=== PATIENT | female | born 1975 | race Caucasian/White ===

== ENCOUNTER 2018-12-11 23:08 | Emergency (ER) | payer MEDICAID ==
[~2018-12-11] VITALS: Ht 162.6 cm; Wt 79.4 kg
[2018-12-11 23:25] VITALS: BP 132/84
[2018-12-11] MEDS ORDERED: TUMS500 MG ORAL (23:25)
[2018-12-11] MEDS ORDERED: LOSARTAN POTASS25 MG ORAL (23:25)
[2018-12-11] MEDS ORDERED: ROCATROL0.25 MCG GT (23:25)
--- NOTE | 2018-12-11 23:25 | NUR ---
ED Nurse Note: Pt arrived ambulatory, A/Ox4. Complaining of abdominal pain, constipation and bloating for approximately 1 week. Pt states she also is experiencing discomfort when urinating. Pain 8/10, states she feels burning during urination and pressure and dull pain around lower abdominal area. Urine collected and sent to lab.
[2018-12-12 00:24] LABS: APPEARANCE,URINE CLEAR; BILIRUBIN, URINE NEGATIVE (NEGATIVE); COLOR,URINE PALE YELLOW; GLUCOSE, URINE (UA) NEGATIVE (NEGATIVE); KETONES,URINE NEGATIVE (NEGATIVE); LEUKOCYTE ESTERASE ,URINE 2+ (NEGATIVE); NITRITE,URINE NEGATIVE (NEGATIVE); PH,URINE 6.5 (4.5-8.0); PROTEIN,URINE 2+ (NEGATIVE); UROBILINOGEN,URINE NORMAL MG/DL (0.0-1.0)
[2018-12-12] MEDS ORDERED: TYLENOL EXTRA500 MG ORAL (00:53)
[2018-12-12] MEDS ORDERED: CEPHALEXIN500 MG ORAL (00:53)
[2018-12-12 01:01] VITALS: BP 138/86
--- NOTE | 2018-12-12 01:03 | NUR ---
ED Nurse Note: pt discharge instruction provided w/ prescription, pt wristband removed, pt education done via handout and discussion, pt verbalized understanding and agrees with plan, pt advised to follow up with pcp or return to ED if s/s worsen or new s/s develop, pt vss, ambulatory w/ steady gait.
[2018-12-12] MEDS ORDERED: LOSARTAN POTASS25 M1 PO (01:07)
--- NOTE | 2018-12-12 02:46 | Emergency Room Report ---
History of Present Illness General Chief Complaint: Constipation Source: Patient Present Illness HPI 43-year-old female presents ED for evaluation. Complaining of suprapubic pain and dysuria 2 days. Pain is sharp, 9 out of 10, nonradiating. Denies fevers or chills. Denies flank pain. Denies nausea or vomiting. No other aggravating relieving factors. Denies any other associated symptoms Allergies: Coded Allergies: NO KNOWN ALLERGIES (Verified Allergy, Unknown, 12/11/18) Patient History Past Medical History: HTN Past Surgical History: none Pertinent Family History: none Social History: Denies: smoking, alcohol use, drug use Last Menstrual Period: 2 weeks ago Now: No Immunizations: UTD Reviewed Nursing Documentation: PMH: Agreed; PSxH: Agreed Nursing Documentation-PMH Hx Hypertension: Yes Hx Neurological Problems: Yes - hypoparathyroidism Review of Systems All Other Systems: negative except mentioned in HPI Physical Exam Vital Signs Date Time Temp Pulse Resp B/P (MAP) Pulse Ox O2 Delivery O2 Flow Rate FiO2 12/11/18 23:17 97.9 98 16 132/84 96 Room Air Sp02 EP Interpretation: reviewed, normal General Appearance: no apparent distress, alert, GCS 15, non-toxic Head: normocephalic Eyes: bilateral eye normal inspection, bilateral eye PERRL ENT: normal ENT inspection Neck: normal inspection Respiratory: normal inspection Cardiovascular #1: normal inspection Gastrointestinal: normal bowel sounds, soft, non-distended, no guarding, no rebound, tenderness - suprapubic Rectal: deferred Genitourinary: no CVA tenderness Musculoskeletal: normal inspection Neurologic: alert, oriented x3, responsive, motor strength/tone normal, sensory intact, speech normal Psychiatric: normal inspection Skin: normal inspection Lymphatic: normal inspection Medical Decision Making Diagnostic Impression: Primary Impression: UTI (urinary tract infection) Qualified Codes: N30.01 - Acute cystitis with hematuria ER Course Hospital Course 43-year-old female presents to ED complaining of dysuria with suprapubic pain. Differential diagnoses include: UTI, cystitis, pyelonephritis Clinical course Patient placed on stretcher. After initial history and physical I ordered UA, urine . UA + blood, + bacteria. No flank pain. Likely cystitis. Discussed findings with patient. We'll discharge with antibiotics. Provide her refill of her losartan. Safe for discharge close outpatient follow-up. states she has a PMD. Diagnosis - UTI Stable and discharged home with prescriptions for Rx keflex, tylenol, losartan. Instructed to followup with PMD. Return to ED if symptoms recur or worsen Labs Test 12/11/18 23:45 Urine Color Pale yellow Urine Appearance Clear Urine pH 6.5 (4.5-8.0) Urine Specific [place] 1.005 (1.005-1.035) Urine Protein 2+ (NEGATIVE) Urine Glucose (UA) Negative (NEGATIVE) Urine Ketones Negative (NEGATIVE) Urine Blood 5+ (NEGATIVE) Urine Nitrite Negative (NEGATIVE) Urine Bilirubin Negative (NEGATIVE) Urine Urobilinogen Normal MG/DL (0.0-1.0) Urine Leukocyte Esterase 2+ (NEGATIVE) Urine RBC 5-10 /HPF (0 - 2) Urine WBC 5-10 /HPF (0 - 2) Urine Squamous Epithelial Cells Few /LPF (NONE/OCC) Urine Bacteria Few /HPF (NONE) Urine HCG, Qualitative Negative (NEGATIVE) Last Vital Signs Date Time Temp Pulse Resp B/P (MAP) Pulse Ox O2 Delivery O2 Flow Rate FiO2 12/12/18 01:01 98.0 90 16 138/86 100 Room Air Status: improved Disposition: HOME, SELF-CARE Condition: Stable Scripts Losartan Potassium (Losartan Potassium) 25 Mg Tablet 25 MG PO DAILY, #30 TAB Prov: Nirav Richardson MD 12/12/18 Acetaminophen* (TYLENOL EXTRA STRENGTH*) 500 Mg Tablet 500 MG ORAL Q8H PRN for Prn Headache/Temp > 101, #30 TAB 0 Refills Prov: Nirav Richardson MD 12/12/18 Cephalexin* (KEFLEX*) 500 Mg Capsule 500 MG ORAL EVERY 6 HOURS for 7 Days, CAP Prov: Nirav Richardson MD 12/12/18 Patient Instructions: Dysuria Nirav Richardson MD Dec 12, 2018 02:46
== END 2018-12-12 01:00 | disposition home or self-care (01) ==
LOC: EMR 23:58
DX: N30.01 Acute cystitis with hematuria (principal); I10 Essential (primary) hypertension; E20.9 Hypoparathyroidism, unspecified
CPT/HCPCS: 81003; 81025; 99283

== ENCOUNTER 2019-02-24 08:28 | Emergency (ER) | payer MEDICAID ==
[~2019-02-24] VITALS: Ht 162.6 cm; Wt 81.6 kg
[~2019-02-24 08:28] MED LIST: CEPHALEXIN500 MG ORAL; LOSARTAN POTASS25 M1 PO; LOSARTAN POTASS25 MG ORAL; ROCATROL0.25 MCG GT; TUMS500 MG ORAL; TYLENOL EXTRA500 MG ORAL
--- NOTE | 2019-02-24 08:39 | NUR ---
ED Nurse Note: Patient walked into ED from home patient reports nausea, vomiting, diarrhea for the past 2 days. alert awake ambulatory, patient reports that she is unable to tolerate oral fluids, patient is having clear emesis patient denies abdominal pain.
[2019-02-24 08:47] VITALS: BP 123/97
[2019-02-24] MEDS ORDERED: Morphine Sulfate 2mg/ml Inj(IV/IM USE ONLY) IVP ONE (09:00)
[2019-02-24 09:32] LABS: ALANINE AMINOTRANSFERASE 71 U/L (12-78); ALBUMIN 4.1 G/DL (3.4-5.0); ALBUMIN/GLOBULIN RATIO 0.9 (1.0-2.7); ALKALINE PHOSPHATASE 75 U/L (46-116); ANION GAP 13 mmol/L (5-15); ASPARTATE AMINO TRANSFERASE 43 U/L (15-37); BILIRUBIN,TOTAL 0.9 MG/DL (0.2-1.0); BLOOD UREA NITROGEN 9 mg/dL (7-18); CALCIUM 7.8 MG/DL (8.5-10.1); CARBON DIOXIDE 32 MMOL/L (21-32); CHLORIDE 96 MMOL/L (98-107); CREATININE 1.1 MG/DL (0.55-1.30); SODIUM 141 MMOL/L (136-145)
[2019-02-24 09:33] LABS: BASOPHILS % (AUTO) 1.6 % (0.0-2.0); EOSINOPHILS % (AUTO) 0.5 % (0.0-3.0); HEMATOCRIT 48.1 % (37.0-47.0); HEMOGLOBIN 16.7 G/DL (12.0-16.0); LYMPHOCYTES % (AUTO) 36.7 % (20.0-45.0); MEAN CORPUSCULAR VOLUME 95 FL (80-99); MONOCYTES % (AUTO) 7.3 % (1.0-10.0); NEUTROPHILS % (AUTO) 53.9 % (45.0-75.0); PLATELET COUNT 236 K/UL (150-450); RED BLOOD COUNT 5.04 M/UL (4.20-5.40); RED CELL DISTRIBUTION WIDTH 11.1 % (11.6-14.8); WHITE BLOOD COUNT 6.6 K/UL (4.8-10.8)
[2019-02-24 09:37] LABS: POTASSIUM 2.7 MMOL/L (3.5-5.1)
--- NOTE | 2019-02-24 10:29 | NUR ---
ED Nurse Note: UA collected and sent down to lab
[2019-02-24 10:44] LABS: APPEARANCE,URINE CLEAR; BILIRUBIN, URINE NEGATIVE (NEGATIVE); COLOR,URINE PALE YELLOW; GLUCOSE, URINE (UA) NEGATIVE (NEGATIVE); KETONES,URINE NEGATIVE (NEGATIVE); LEUKOCYTE ESTERASE ,URINE 3+ (NEGATIVE); NITRITE,URINE NEGATIVE (NEGATIVE); PH,URINE 8 (4.5-8.0); PROTEIN,URINE 1+ (NEGATIVE); UROBILINOGEN,URINE NORMAL MG/DL (0.0-1.0)
[2019-02-24] MEDS ORDERED: ONDANSETRON ODT4 MG BC (12:00)
--- NOTE | 2019-02-24 12:09 | Emergency Room Report ---
History of Present Illness General Chief Complaint: Nausea, Vomiting, and Diarrhea Source: Patient Present Illness HPI Patient presents emergency department today complaint nausea vomiting diarrhea and abdominal pain. Patient states that she was recently treated for UTI. Review medical records so she was last treated back in November. Patient states that she denies any dysuria urinary frequency. She does not believe she has UTI. However she thinks that she might have gastroenteritis. She states her coworkers at work have also has similar symptoms. She's had symptoms for the last couple days. She denies any chest pain shortness of breath. Denies any dysuria urinary frequency. Symptoms noted to be moderate to severe. No other modifying factors. No other associated signs and symptoms. No other complaints were noted. Allergies: Coded Allergies: SULFA (SULFONAMIDE ANTIBIOTICS) (Verified Allergy, Unknown, 02/24/19) Patient History Past Medical History: HTN, other - hypo parathyroidism Past Surgical History: none Social History: Denies: smoking, alcohol use, drug use Reviewed Nursing Documentation: PMH: Agreed; PSxH: Agreed Nursing Documentation-PMH Hx Hypertension: Yes Hx Neurological Problems: Yes - hypoparathyroidism Review of Systems All Other Systems: negative except mentioned in HPI Physical Exam Vital Signs Date Time Temp Pulse Resp B/P (MAP) Pulse Ox O2 Delivery O2 Flow Rate FiO2 02/24/19 08:30 98.2 113 20 136/87 98 Room Air Sp02 EP Interpretation: reviewed, normal General Appearance: normal inspection, well appearing, no apparent distress, alert Head: atraumatic Eyes: bilateral eye normal inspection ENT: normal ENT inspection, hearing grossly normal, normal voice Neck: normal inspection, full range of motion, supple, no bony tend Respiratory: normal inspection, lungs clear, normal breath sounds, no respiratory distress, no retraction, no wheezing Cardiovascular #1: regular rate, rhythm, no edema Gastrointestinal: normal inspection, normal bowel sounds, soft, no guarding, no hernia, tenderness - Diffusely to deep palpation Genitourinary: no CVA tenderness Musculoskeletal: normal inspection, back normal, normal range of motion Neurologic: normal inspection, alert, responsive, speech normal Psychiatric: normal inspection, judgement/insight normal, mood/affect normal Skin: normal inspection, normal color, no rash Medical Decision Making Diagnostic Impression: Primary Impression: Hypokalemia Additional Impression: Acute gastroenteritis ER Course Patient presents emergency department today complaining of abdominal discomfort associate nausea vomiting diarrhea. Differential considerations include acute electrolyte abnormality, gastroenteritis, pancreatitis, hepatitis just to name a few. Patient's exam is fairly benign other than abdominal discomfort after vomiting. Patient had IV established was given 3 L normal saline fluid bolus. Patient feels better to receiving fluid bolus and was able to provide some urine. Urine showed negative . Urine also showed elevated white blood cell count in the urine. This is consistent with possible UTI versus contamination. I did have a long discussion with the patient. Patient has no symptoms of a UTI. Therefore I felt that this likely is contamination. However recommended to the patient that if she should express any UTI symptoms return to emergency department for further evaluation. Patient was also hesitant to take any antibiotics that she was recently treated for UTI. I recommend that she follow up with a primary care physician for recheck of her potassium as well as her urine in about one week. Patient does have hypokalemia likely secondary to vomiting and diarrhea. Patient however states that she does have a history of low potassium. Patient was given a prescription for K-Dur advised to follow up with primary care physician for recheck of potassium.Patient is advised to follow up with primary doctor in 2-3 days and return the emergency room for any worsening symptoms and as needed. Labs Test 02/24/19 08:55 02/24/19 10:27 White Blood Count 6.6 K/UL (4.8-10.8) Red Blood Count 5.04 M/UL (4.20-5.40) Hemoglobin 16.7 G/DL (12.0-16.0) Hematocrit 48.1 % (37.0-47.0) Mean Corpuscular Volume 95 FL (80-99) Mean Corpuscular Hemoglobin 33.1 PG (27.0-31.0) Mean Corpuscular Hemoglobin Concent 34.7 G/DL (32.0-36.0) Red Cell Distribution Width 11.1 % (11.6-14.8) Platelet Count 236 K/UL (150-450) Mean Platelet Volume 5.7 FL (6.5-10.1) Neutrophils (%) (Auto) 53.9 % (45.0-75.0) Lymphocytes (%) (Auto) 36.7 % (20.0-45.0) Monocytes (%) (Auto) 7.3 % (1.0-10.0) Eosinophils (%) (Auto) 0.5 % (0.0-3.0) Basophils (%) (Auto) 1.6 % (0.0-2.0) Sodium Level 141 MMOL/L (136-145) Potassium Level 2.7 MMOL/L (3.5-5.1) Chloride Level 96 MMOL/L (98-107) Carbon Dioxide Level 32 MMOL/L (21-32) Anion Gap 13 mmol/L (5-15) Blood Urea Nitrogen 9 mg/dL (7-18) Creatinine 1.1 MG/DL (0.55-1.30) Estimat Glomerular Filtration Rate 54.2 mL/min (>60) Glucose Level 115 MG/DL (74-106) Calcium Level 7.8 MG/DL (8.5-10.1) Total Bilirubin 0.9 MG/DL (0.2-1.0) Aspartate Amino Transf (AST/SGOT) 43 U/L (15-37) Alanine Aminotransferase (ALT/SGPT) 71 U/L (12-78) Alkaline Phosphatase 75 U/L (46-116) Total Protein 8.7 G/DL (6.4-8.2) Albumin 4.1 G/DL (3.4-5.0) Globulin 4.6 g/dL Albumin/Globulin Ratio 0.9 (1.0-2.7) Lipase 299 U/L (73-393) Urine Color Pale yellow Urine Appearance Clear Urine pH 8 (4.5-8.0) Urine Specific [place] 1.005 (1.005-1.035) Urine Protein 1+ (NEGATIVE) Urine Glucose (UA) Negative (NEGATIVE) Urine Ketones Negative (NEGATIVE) Urine Blood 3+ (NEGATIVE) Urine Nitrite Negative (NEGATIVE) Urine Bilirubin Negative (NEGATIVE) Urine Urobilinogen Normal MG/DL (0.0-1.0) Urine Leukocyte Esterase 3+ (NEGATIVE) Urine RBC 2-4 /HPF (0 - 2) Urine WBC 10-15 /HPF (0 - 2) Urine Squamous Epithelial Cells Few /LPF (NONE/OCC) Urine Bacteria Few /HPF (NONE) Urine HCG, Qualitative Negative (NEGATIVE) Last Vital Signs Date Time Temp Pulse Resp B/P (MAP) Pulse Ox O2 Delivery O2 Flow Rate FiO2 02/24/19 09:40 98.2 02/24/19 08:47 111 12 123/97 98 Room Air Disposition: HOME, SELF-CARE Condition: Stable Scripts Ondansetron Odt* (ZOFRAN ODT*) 4 Mg Tab.rapdis 4 MG BC EVERY 6 HOURS PRN for Nausea & Vomiting, #10 TAB 0 Refills Prov: Everardo Camacho MD 02/24/19 Patient Instructions: Hypokalemia, Dehydration, Adult, [id number] Everardo Camacho MD Feb 24, 2019 12:09
[2019-02-24] MEDS ORDERED: POTASSIUM CHLO20 ME1 ORAL (12:10)
[2019-02-24 12:19] VITALS: BP 121/89
--- NOTE | 2019-02-24 12:20 | NUR ---
ER DISCHARGE NOTE: Patient is cleared to be discharged per ERMD, pt is aox4, on room air, with stable vital signs. pt was given dc and prescription instructions, pt was able to verbalize understanding, pt id band and iv site removed without complications. pt is able to ambulate with steady gait. pt took all belongings.
== END 2019-02-24 12:50 | disposition home or self-care (01) ==
LOC: EMR 08:41
DX: K52.9 Noninfective gastroenteritis and colitis, unspecified (principal); E87.6 Hypokalemia; Z88.2 Allergy status to sulfonamides; I10 Essential (primary) hypertension
CPT/HCPCS: 36415; 80053; 81003; 81025; 83690; 85025; 87086; 96361; 96374; 96375; 96376; 99284; J2270; J2405; J8499

== ENCOUNTER 2019-04-29 08:44 | Inpatient (IN) | payer MEDICAID ==
[~2019-04-29] VITALS: Ht 160 cm; Wt 81.6 kg
[~2019-04-29 08:44] MED LIST changes: +ONDANSETRON ODT4 MG BC; +POTASSIUM CHLO20 ME1 ORAL
--- NOTE | 2019-04-29 09:10 | NUR ---
ED Nurse Note: Patient presents ER due to blood (bright red blood) in stool x 3 this morning and rectal pain. Reports no N/V or fever or chills. Patient states increased pain when she sits on the toilet for 'long time' and her stool gets harder since last week. Denies taking any stool softner. No facial grimacing or guarding noted.
--- NOTE | 2019-04-29 09:11 | Emergency Room Report ---
History of Present Illness General Chief Complaint: Gastrointestinal Bleed Source: Patient Present Illness HPI Patient present with rectal bleeding and crampy pain with rectal pain that began this morning. She moved her bowels attempting 3 times. There is blood the first time that was bright red and quite a bit. Second time there was stool with minimal amount of blood in the third time there was stool with blood around it. Blood is bright red. She denies passing any clots. She has some rectal pain. She not sure if the lower abdominal cramping is related to her menstruation or was a separate problem. She denies constipation per se but is been spending more time sitting on the toilet. She denies any fevers or chills. There's no nausea and vomiting. She's never had colonoscopy and denies any family history of cancer. She denies dysuria. Her menstruation is normal for her. She feels tired. She's not sure why that is. She denies any chest pain, dyspnea or sore throat. H/O hypoparathyroidism on calcium and Calcitrol.. Allergies: Coded Allergies: SULFA (SULFONAMIDE ANTIBIOTICS) (Verified Allergy, Unknown, 02/24/19) Patient History Past Medical History: see triage record Social History: Denies: smoking Social History Narrative has 8 year old daughter Reviewed Nursing Documentation: PMH: Agreed; PSxH: Agreed Nursing Documentation-PMH Hx Hypertension: Yes Hx Neurological Problems: Yes - hypoparathyroidism Review of Systems All Other Systems: negative except mentioned in HPI Physical Exam Vital Signs Date Time Temp Pulse Resp B/P (MAP) Pulse Ox O2 Delivery O2 Flow Rate FiO2 04/29/19 08:46 98.8 92 19 127/84 (98) 97 Room Air Sp02 EP Interpretation: reviewed, normal General Appearance: well appearing, no apparent distress, GCS 15 Head: normocephalic Eyes: bilateral eye normal inspection, bilateral eye PERRL, bilateral eye EOMI ENT: moist mucus membranes Neck: supple Respiratory: lungs clear, normal breath sounds Cardiovascular #1: regular rate, rhythm Cardiovascular #2: 2+ radial (R) Gastrointestinal: normal inspection, normal bowel sounds, non tender, no mass, non-distended Rectal: hemorrhoids, other - No fissure Genitourinary: no CVA tenderness Musculoskeletal: back normal, gait/station normal, normal range of motion Neurologic: alert, oriented x3, grossly normal Psychiatric: mood/affect normal Skin: normal inspection, warm/dry Medical Decision Making Diagnostic Impression: Primary Impression: Hypocalcemia Additional Impressions: Hypokalemia Rectal bleeding Hemorrhoid Qualified Codes: K64.9 - Unspecified hemorrhoids UTI (urinary tract infection) Qualified Codes: N30.00 - Acute cystitis without hematuria ER Course Patient presents with rectal bleeding. Differential includes hemorrhoid, rectal fissure, diverticulosis and mass. Evaluation with labs. Treatment with Tylenol. Abdomen is benign at this time. Risk of rectal cancer is extremely low based on his history. Labs significant for low potassium and calcium. Ionized calcium low. Potassium given orally. CBC normal. Magnesium low. Calcium ordered IV. Most likely these are contributing to her fatigue. Macrobid begun for UTI. . Patient admitted to medical floor. Last Vital Signs Date Time Temp Pulse Resp B/P (MAP) Pulse Ox O2 Delivery O2 Flow Rate FiO2 04/29/19 16:00 98.1 78 19 125/87 (100) 97 04/29/19 15:19 Room Air EKG Diagnostic Results Rate: normal Rhythm: NSR ST Segments: no acute changes Rhythm Strip Diag. Results EP Interpretation: yes Rhythm: NSR, no PVC's, no ectopy Last Vital Signs Date Time Temp Pulse Resp B/P (MAP) Pulse Ox O2 Delivery O2 Flow Rate FiO2 04/29/19 16:00 98.1 78 19 125/87 (100) 97 04/29/19 15:19 Room Air Status: improved Disposition: ADMITTED INPATIENT Condition: Serious Referrals: NON PHYSICIAN (PCP) Dino Blue MD Apr 29, 2019 09:11
--- NOTE | 2019-04-29 09:16 | NUR ---
ED Nurse Note: Venipuncture to right AC performed using 22g. Patient tolerated the procedure without difficulty. Applied clean, dry dressing.
--- NOTE | 2019-04-29 09:30 | NUR ---
ED Nurse Note: Patient attempted to void, but unsuccessful. Provided water.
[2019-04-29 09:35] LABS: EOSINOPHILS % (AUTO) 1.7 % (0.0-3.0); HEMATOCRIT 42.4 % (37.0-47.0); HEMOGLOBIN 14.4 G/DL (12.0-16.0); LYMPHOCYTES % (AUTO) 24.3 % (20.0-45.0); MEAN CORPUSCULAR VOLUME 99 FL (80-99); MONOCYTES % (AUTO) 10.3 % (1.0-10.0); NEUTROPHILS % (AUTO) 61.7 % (45.0-75.0); PLATELET COUNT 218 K/UL (150-450); RED BLOOD COUNT 4.29 M/UL (4.20-5.40); RED CELL DISTRIBUTION WIDTH 12.2 % (11.6-14.8); WHITE BLOOD COUNT 5.7 K/UL (4.8-10.8)
[2019-04-29 09:46] LABS: ALANINE AMINOTRANSFERASE 146 U/L (12-78); ALBUMIN 3.2 G/DL (3.4-5.0); ALBUMIN/GLOBULIN RATIO 0.8 (1.0-2.7); ALKALINE PHOSPHATASE 66 U/L (46-116); ANION GAP 11 mmol/L (5-15); ASPARTATE AMINO TRANSFERASE 96 U/L (15-37); BILIRUBIN,TOTAL 0.6 MG/DL (0.2-1.0); BLOOD UREA NITROGEN 8 mg/dL (7-18); CALCIUM 7.4 MG/DL (8.5-10.1); CARBON DIOXIDE 26 MMOL/L (21-32); CHLORIDE 100 MMOL/L (98-107); POTASSIUM 2.8 MMOL/L (3.5-5.1); SODIUM 138 MMOL/L (136-145)
--- NOTE | 2019-04-29 09:54 | NUR ---
ED Nurse Note: Family member at bedside.
[2019-04-29 09:59] LABS: APPEARANCE,URINE CLEAR; BILIRUBIN, URINE NEGATIVE (NEGATIVE); COLOR,URINE PALE YELLOW; GLUCOSE, URINE (UA) NEGATIVE (NEGATIVE); KETONES,URINE NEGATIVE (NEGATIVE); LEUKOCYTE ESTERASE ,URINE 3+ (NEGATIVE); NITRITE,URINE NEGATIVE (NEGATIVE); PH,URINE 7 (4.5-8.0); PROTEIN,URINE 1+ (NEGATIVE); UROBILINOGEN,URINE NORMAL MG/DL (0.0-1.0)
[2019-04-29 10:01] VITALS: BP 121/73
[2019-04-29 12:20] VITALS: BP 112/83
[2019-04-29] MEDS ORDERED: Calcium Gluconate 10% 1 GM in NS 110 ML IV ONE (12:30)
[2019-04-29 13:15] VITALS: BP 141/92
--- NOTE | 2019-04-29 13:15 | NUR ---
NURSE NOTES: Patient came to unit by wheelchair in stable condition. Alert and oriented x4. Complain of mild pain on abdominal area. Skin intact and dry. IV dressing intact and dry. Belonging checked. Bed lowest position. Call light within reach. Will continue to monitor.
[2019-04-29] MEDS ORDERED: Miralax 17gm pkt ORAL PRN (14:00)
[2019-04-29] MEDS ORDERED: Nitroglycerin Subl 0.4mg tab SL PRN (14:00)
[2019-04-29] MEDS ORDERED: D5NS 1,000 ML IV SCH (14:01)
--- NOTE | 2019-04-29 14:55 | NUR ---
NURSE NOTES: Spoke to [facility] [employer] regarding stomach cramping and new order received. Order read back and carried out.
[2019-04-29] MEDS ORDERED: Dicyclomine 10mg Cap ORAL PRN (15:00)
[2019-04-29 16:00] VITALS: BP 125/87
--- NOTE | 2019-04-29 16:07 | GI Progress Note ---
Objective Last 24 Hour Vital Signs Date Time Temp Pulse Resp B/P (MAP) Pulse Ox O2 Delivery O2 Flow Rate FiO2 04/29/19 15:19 Room Air 04/29/19 13:24 87 17 136/99 97 Room Air 04/29/19 12:20 87 15 112/83 99 Room Air 04/29/19 10:01 98.4 94 16 121/73 99 Room Air 04/29/19 09:55 98.4 04/29/19 09:20 86 18 Room Air 04/29/19 08:46 98.8 92 19 127/84 (98) 97 Room Air Laboratory Tests Test 04/29/19 09:16 04/29/19 09:42 04/29/19 10:11 White Blood Count 5.7 K/UL (4.8-10.8) Red Blood Count 4.29 M/UL (4.20-5.40) Hemoglobin 14.4 G/DL (12.0-16.0) Hematocrit 42.4 % (37.0-47.0) Mean Corpuscular Volume 99 FL (80-99) Mean Corpuscular Hemoglobin 33.6 PG (27.0-31.0) H Mean Corpuscular Hemoglobin Concent 34.0 G/DL (32.0-36.0) Red Cell Distribution Width 12.2 % (11.6-14.8) Platelet Count 218 K/UL (150-450) Mean Platelet Volume 6.1 FL (6.5-10.1) L Neutrophils (%) (Auto) 61.7 % (45.0-75.0) Lymphocytes (%) (Auto) 24.3 % (20.0-45.0) Monocytes (%) (Auto) 10.3 % (1.0-10.0) H Eosinophils (%) (Auto) 1.7 % (0.0-3.0) Basophils (%) (Auto) 2.0 % (0.0-2.0) Prothrombin Time 10.3 SEC (9.30-11.50) Prothromb Time International Ratio 1.0 (0.9-1.1) Activated Partial Thromboplast Time 27 SEC (23-33) Sodium Level 138 MMOL/L (136-145) Potassium Level 2.8 MMOL/L (3.5-5.1) L Chloride Level 100 MMOL/L (98-107) Carbon Dioxide Level 26 MMOL/L (21-32) Anion Gap 11 mmol/L (5-15) Blood Urea Nitrogen 8 mg/dL (7-18) Creatinine 1.0 MG/DL (0.55-1.30) Estimat Glomerular Filtration Rate > 60 mL/min (>60) Glucose Level 129 MG/DL (74-106) H Calcium Level 7.4 MG/DL (8.5-10.1) L Magnesium Level 1.2 MG/DL (1.8-2.4) L Total Bilirubin 0.6 MG/DL (0.2-1.0) Aspartate Amino Transf (AST/SGOT) 96 U/L (15-37) H Alanine Aminotransferase (ALT/SGPT) 146 U/L (12-78) H Alkaline Phosphatase 66 U/L (46-116) Total Protein 7.4 G/DL (6.4-8.2) Albumin 3.2 G/DL (3.4-5.0) L Globulin 4.2 g/dL Albumin/Globulin Ratio 0.8 (1.0-2.7) L Urine Color Pale yellow Urine Appearance Clear Urine pH 7 (4.5-8.0) Urine Specific [place] 1.005 (1.005-1.035) Urine Protein 1+ (NEGATIVE) H Urine Glucose (UA) Negative (NEGATIVE) Urine Ketones Negative (NEGATIVE) Urine Blood 2+ (NEGATIVE) H Urine Nitrite Negative (NEGATIVE) Urine Bilirubin Negative (NEGATIVE) Urine Urobilinogen Normal MG/DL (0.0-1.0) Urine Leukocyte Esterase 3+ (NEGATIVE) H Urine RBC 2-4 /HPF (0 - 2) H Urine WBC 15-20 /HPF (0 - 2) H Urine Squamous Epithelial Cells Few /LPF (NONE/OCC) Urine Bacteria Few /HPF (NONE) Urine HCG, Qualitative Negative (NEGATIVE) Ionized Calcium (Measured) 0.89 mmol/L (1.10-1.35) L Height (Feet): 5 Height (Inches): 4.00 Weight (Pounds): 180 Wai Loya MD Apr 29, 2019 16:07
--- NOTE | 2019-04-29 16:08 | General Progress Note ---
Assessment/Plan Problem List: (1) GIB (gastrointestinal bleeding) ICD Codes: K92.2 - Gastrointestinal hemorrhage, unspecified SNOMED: 46599909 (2) UTI (urinary tract infection) ICD Codes: N39.0 - Urinary tract infection, site not specified SNOMED: 81360673 (3) Hypokalemia ICD Codes: E87.6 - Hypokalemia SNOMED: 72263654 (4) Acute gastroenteritis ICD Codes: K52.9 - Noninfective gastroenteritis and colitis, unspecified SNOMED: 89441791 Assessment/Plan: plan colonoscopy tomorrow Subjective ROS Limited/Unobtainable: Yes Allergies: Coded Allergies: SULFA (SULFONAMIDE ANTIBIOTICS) (Verified Allergy, Unknown, 02/24/19) Objective Last 24 Hour Vital Signs Date Time Temp Pulse Resp B/P (MAP) Pulse Ox O2 Delivery O2 Flow Rate FiO2 04/29/19 15:19 Room Air 04/29/19 13:24 87 17 136/99 97 Room Air 04/29/19 12:20 87 15 112/83 99 Room Air 04/29/19 10:01 98.4 94 16 121/73 99 Room Air 04/29/19 09:55 98.4 04/29/19 09:20 86 18 Room Air 04/29/19 08:46 98.8 92 19 127/84 (98) 97 Room Air Laboratory Tests 04/29/19 09:16: White Blood Count 5.7, Red Blood Count 4.29, Hemoglobin 14.4, Hematocrit 42.4, Mean Corpuscular Volume 99, Mean Corpuscular Hemoglobin 33.6H, Mean Corpuscular Hemoglobin Concent 34.0, Red Cell Distribution Width 12.2, Platelet Count 218, Mean Platelet Volume 6.1L, Neutrophils (%) (Auto) 61.7, Lymphocytes (%) (Auto) 24.3, Monocytes (%) (Auto) 10.3H, Eosinophils (%) (Auto) 1.7, Basophils (%) ( Auto) 2.0, Prothrombin Time 10.3, Prothromb Time International Ratio 1.0, Activated Partial Thromboplast Time 27, Sodium Level 138, Potassium Level 2.8L, Chloride Level 100, Carbon Dioxide Level 26, Anion Gap 11, Blood Urea Nitrogen 8 , Creatinine 1.0, Estimat Glomerular Filtration Rate > 60, Glucose Level 129H, Calcium Level 7.4L, Magnesium Level 1.2L, Total Bilirubin 0.6, Aspartate Amino Transf (AST/SGOT) 96H, Alanine Aminotransferase (ALT/SGPT) 146H, Alkaline Phosphatase 66, Total Protein 7.4, Albumin 3.2L, Globulin 4.2, Albumin/Globulin Ratio 0.8L 04/29/19 09:42: Urine Color Pale yellow, Urine Appearance Clear, Urine pH 7, Urine Specific [place] 1.005, Urine Protein 1+H, Urine Glucose (UA) Negative, Urine Ketones Negative, Urine Blood 2+H, Urine Nitrite Negative, Urine Bilirubin Negative, Urine Urobilinogen Normal, Urine Leukocyte Esterase 3+H, Urine RBC 2-4H, Urine WBC 15-20H, Urine Squamous Epithelial Cells Few, Urine Bacteria Few, Urine HCG, Qualitative Negative 04/29/19 10:11: Ionized Calcium (Measured) 0.89L Height (Feet): 5 Height (Inches): 4.00 Weight (Pounds): 180 General Appearance: alert EENT: normal ENT inspection Neck: supple Cardiovascular: normal rate Respiratory/Chest: lungs clear Abdomen: normal bowel sounds, non tender, soft Extremities: non-tender Wai Loya MD Apr 29, 2019 16:08
[2019-04-29] MEDS ORDERED: Dicyclomine HCl 10mg/5ml oral soln ORAL PRN (16:15)
--- NOTE | 2019-04-29 16:50 | NUR ---
HAND-OFF: Report given to Iraida CHAVIS. Patient in stable condition..
--- NOTE | 2019-04-29 16:50 | NUR ---
NURSE NOTES: Report received from Alan CHAVIS, rounds made. Patient sitting upright in bed, alert, oriented x4, calm. Reviewed plan of care, verbalized understanding. IVF infusing to LAC at 75 ml/hr, site asymptomatic. Denies NV, pain or SOB on RA. Instructed acute care nurse practitioner light for safety. Side rails up x3, bed in lowest position, will continue to monitor.
[2019-04-29] MEDS ORDERED: Nulytely 4L ORAL SCH (17:00)
[2019-04-29] MEDS: D5 1/2NS w/KCl 20mEq 1,000 ML IV SCH (18:55)
--- NOTE | 2019-04-29 19:10 | NUR ---
NURSE NOTES: Consent for colonoscopy reviewed with patient, verbalized understanding, signed by patient. Reinforced NPO after midnight status and initiated Nulytely as ordered, Dr. Loya notified that it was being started at 1850 and patient will be taking second round at midnight, okay with Dr. Loya, see order. Bilateral SCDs applied, instructed patient on purpose, verbalized understanding. Medicated with Bentyl for patient experiencing abdominal cramps. Will endorse above to next shift nurse.
--- NOTE | 2019-04-29 19:30 | NUR ---
Nurses Notes Received report from Aniya CHAVIS Pt alert oriented x4. Pt NPO for procedure tomorrow. no acute respiratory distress, pt on room air. Pt denies pain at this time. IV intact. pt denies any bleeding in stool at this time. Golylte at beside. pt instructed by day nurse how and when to take Gol[place]. night nurse to enforce teaching. Pt able to ambulate with steady gait. bed in lowest position call light in reach. will continue to monitor patient
--- NOTE | 2019-04-29 19:35 | NUR ---
HAND-OFF: Report given to Juliana CHAVIS.
--- NOTE | 2019-04-29 19:44 | History & Physical ---
History and Physical History & Physicial Dictated for Int Med-Dr Houston no. [id number]. Fidel Olvera MD Apr 29, 2019 19:44
[2019-04-29 20:00] VITALS: BP 143/98
--- NOTE | 2019-04-29 21:20 | NUR ---
Nurse Notes VS taken patient b/p 143/98 asymptomatic pt states " I am feeling anxious" Dr. Loya notified with new orders of Ativan 1mg PO x 1. No b/p Meds ordered at this time will continue to monitor blood pressure
[2019-04-29] MEDS ORDERED: LORazepam 1mg tab ORAL SCH (21:45)
[2019-04-30] VITALS (11 sets, daily range): BP systolic 105–136; BP diastolic 68–99
--- NOTE | 2019-04-30 | NUR ---
Nurse notes Pt b/p 136/99 Pt states " I feel okay. Pt is asymptomatic. . notified Dr Loya earlier no b/p meds ordered. pt in bed comfortable. will continue to monitor b/p
--- NOTE | 2019-04-30 01:00 | History and Physical Report ---
DATE OF ADMISSION: 04/29/2019 CHIEF COMPLAINT: The patient is a 43-year-old white female, who presents with a chief complaint of rectal bleeding and abdominal pain. HISTORY OF PRESENT ILLNESS: Began this morning. The patient began to experience rectal pain. The patient had abdominal pain that was cramping in nature. The patient then had a bowel movement, which had bright red blood. The patient states the toilet bowl was red in color. The patient presented to [facility] emergency room. The patient was admitted for rectal bleed. REVIEW OF SYSTEMS: CONSTITUTIONAL: The patient denies weight loss or weight gain. The patient denies fevers or chills. HEENT: The patient denies ear or throat pain. The patient denies headache. CARDIOVASCULAR: The patient denies palpitations or chest pain. CHEST: The patient denies wheeze or shortness of breath. ABDOMINAL: The patient denies nausea, vomiting, diarrhea, or constipation. GENITOURINARY: The patient denies dysuria or increased frequency of urination. NEUROMUSCULAR: The patient denies seizures or generalized weakness. PAST MEDICAL HISTORY: Significant for hypothyroidism. PAST SURGICAL HISTORY: The patient denies. CURRENT MEDICATIONS: 1. Calcitriol 0.5 mcg daily. 2. Calcium carbonate 600 mg one tab p.o. 3 times a day. 3. Losartan 25 mg p.o. daily. 4. Potassium chloride 20 mEq p.o. twice daily. ALLERGIES: Sulfa. SOCIAL HISTORY: The patient is single. 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 The patient denies tobacco or alcohol use. PHYSICAL EXAMINATION: VITAL SIGNS: Temperature 98.4, respirations 16, pulse 94, and blood pressure /73. GENERAL: The patient is a well-developed and well-nourished female, in no apparent distress. HEENT: Eyes, pupils are equal and responsive to light and accommodation. Extraocular movements are intact. NECK: Supple without lymphadenopathy. CHEST: Lungs are clear to auscultation bilaterally without wheezes or rales. CARDIOVASCULAR: Regular rhythm and rate. S1 and S2 are normal without murmurs, rubs, or gallops. ABDOMEN: Soft, nontender, and nondistended. Positive bowel sounds. No evidence of hepatosplenomegaly. Currently, no rebound or guarding noted. EXTREMITIES: Negative for clubbing, cyanosis, or edema. RECTAL/GENITAL: Refused. NEUROLOGICAL: Cranial nerves II through XII are grossly intact without focal deficits. Motor strength is 5/5 bilaterally. Deep tendon reflexes are 2+ plantar. LABORATORY STUDIES: WBC 5.7, hemoglobin 14.4, hematocrit 42.4, and platelets 280,000. Sodium 138, potassium 2.8, chloride 100, CO2 26, BUN 8, creatinine 1.0, and glucose 129. Urinalysis showed 2+ blood and 3+ leukocyte esterase with 15 to 20 wbc's. ASSESSMENT: This is a 43-year-old white female. 1. Rectal bleeding. 2. Abdominal pain. 3. Urinary tract infection. 4. Hypokalemia. 5. Gastroenteritis. 6. Hypoparathyroidism. TREATMENT: 1. Rectal bleeding/abdominal pain. A Gastroenterology consultation has been obtained with Dr. Wai Loya. The patient may require colonoscopy and endoscopy. We will follow recommendations of Gastroenterology. The patient has been started on Protonix. 2. Urinary tract infection. A urine culture is pending. The patient has been started on Macrobid. 3. Hypokalemia. The patient has received potassium. 4. Gastroenteritis. 5. Hypoparathyroidism. Fidel Olvera M.D. DR: NAHED JOB#: [id number] CC:
[2019-04-30] MEDS: D5 1/2NS w/KCl 20mEq 1,000 ML IV SCH (05:37)
[2019-04-30 06:29] LABS: BASOPHILS % (AUTO) 1.2 % (0.0-2.0); EOSINOPHILS % (AUTO) 1.6 % (0.0-3.0); HEMATOCRIT 44.3 % (37.0-47.0); HEMOGLOBIN 15.2 G/DL (12.0-16.0); LYMPHOCYTES % (AUTO) 32.9 % (20.0-45.0); MEAN CORPUSCULAR VOLUME 100 FL (80-99); NEUTROPHILS % (AUTO) 54.3 % (45.0-75.0); PLATELET COUNT 224 K/UL (150-450); RED BLOOD COUNT 4.44 M/UL (4.20-5.40); WHITE BLOOD COUNT 6.2 K/UL (4.8-10.8)
--- NOTE | 2019-04-30 06:40 | Anethesia Preoperative Eval ---
Anesthesia Pre-op PMH/ROS General Date of Evaluation: Apr 30, 2019 Time of Evaluation: 06:37 Anesthesiologist: dede ASA Score: ASA 3 Mallampati Score Class I : Soft palate, uvula, fauces, pillars visible Class II: Soft palate, uvula, fauces visible Class III: Soft palate, base of uvula visible Class IV: Only hard plate visible Mallampati Classification: Class II Surgeon: tara Diagnosis: gi bleed Surgical Procedure: colonoscopy Anesthesia History: none Social History: smoking - nonsmoker Family History: no anesthesia problems Allergies: Coded Allergies: SULFA (SULFONAMIDE ANTIBIOTICS) (Verified Allergy, Unknown, 02/24/19) Medications: see eMAR Patient NPO?: Yes Past Medical History Cardiovascular: Reports: HTN Gastrointestinal/Genitourinary: Reports: other - acute gastroenteritis, gi bleed, hemorrhoids, rectal bleeding, uti Endocrine: Reports: other - hypoparathyroidism, Anesthesia Pre-op Phys. Exam Physician Exam Last Vital Signs Date Time Temp Pulse Resp B/P (MAP) Pulse Ox O2 Delivery O2 Flow Rate FiO2 04/30/19 04:00 98.6 82 20 119/86 (97) 98 04/29/19 21:00 Room Air Constitutional: NAD Neurologic: CN 2-12 intact Cardiovascular: RRR Respiratory: CTA Gastrointestinal: S/NT/ND Airway Exam Mallampati Score: Class II MO: full Neck: flexible TMD: 2fb ROM: full Anesthesia Pre-op A/P Labs Labs Test 04/29/19 09:16 04/29/19 09:42 04/29/19 10:11 04/30/19 05:35 White Blood Count 5.7 K/UL (4.8-10.8) 6.2 K/UL (4.8-10.8) Red Blood Count 4.29 M/UL (4.20-5.40) 4.44 M/UL (4.20-5.40) Hemoglobin 14.4 G/DL (12.0-16.0) 15.2 G/DL (12.0-16.0) Hematocrit 42.4 % (37.0-47.0) 44.3 % (37.0-47.0) Mean Corpuscular Volume 99 FL (80-99) 100 FL (80-99) Mean Corpuscular Hemoglobin 33.6 PG (27.0-31.0) 34.2 PG (27.0-31.0) Mean Corpuscular Hemoglobin Concent 34.0 G/DL (32.0-36.0) 34.3 G/DL (32.0-36.0) Red Cell Distribution Width 12.2 % (11.6-14.8) 12.0 % (11.6-14.8) Platelet Count 218 K/UL (150-450) 224 K/UL (150-450) Mean Platelet Volume 6.1 FL (6.5-10.1) 6.1 FL (6.5-10.1) Neutrophils (%) (Auto) 61.7 % (45.0-75.0) 54.3 % (45.0-75.0) Lymphocytes (%) (Auto) 24.3 % (20.0-45.0) 32.9 % (20.0-45.0) Monocytes (%) (Auto) 10.3 % (1.0-10.0) 10.0 % (1.0-10.0) Eosinophils (%) (Auto) 1.7 % (0.0-3.0) 1.6 % (0.0-3.0) Basophils (%) (Auto) 2.0 % (0.0-2.0) 1.2 % (0.0-2.0) Prothrombin Time 10.3 SEC (9.30-11.50) 10.2 SEC (9.30-11.50) Prothromb Time International Ratio 1.0 (0.9-1.1) 1.0 (0.9-1.1) Activated Partial Thromboplast Time 27 SEC (23-33) 27 SEC (23-33) Sodium Level 138 MMOL/L (136-145) 141 MMOL/L (136-145) Potassium Level 2.8 MMOL/L (3.5-5.1) 3.2 MMOL/L (3.5-5.1) Chloride Level 100 MMOL/L (98-107) 105 MMOL/L (98-107) Carbon Dioxide Level 26 MMOL/L (21-32) 24 MMOL/L (21-32) Anion Gap 11 mmol/L (5-15) 12 mmol/L (5-15) Blood Urea Nitrogen 8 mg/dL (7-18) 9 mg/dL (7-18) Creatinine 1.0 MG/DL (0.55-1.30) 1.0 MG/DL (0.55-1.30) Estimat Glomerular Filtration Rate > 60 mL/min (>60) > 60 mL/min (>60) Glucose Level 129 MG/DL (74-106) 120 MG/DL (74-106) Calcium Level 7.4 MG/DL (8.5-10.1) 7.7 MG/DL (8.5-10.1) Magnesium Level 1.2 MG/DL (1.8-2.4) Total Bilirubin 0.6 MG/DL (0.2-1.0) 0.7 MG/DL (0.2-1.0) Aspartate Amino Transf (AST/SGOT) 96 U/L (15-37) 58 U/L (15-37) Alanine Aminotransferase (ALT/SGPT) 146 U/L (12-78) 123 U/L (12-78) Alkaline Phosphatase 66 U/L (46-116) 52 U/L (46-116) Total Protein 7.4 G/DL (6.4-8.2) 7.8 G/DL (6.4-8.2) Albumin 3.2 G/DL (3.4-5.0) 3.4 G/DL (3.4-5.0) Globulin 4.2 g/dL 4.4 g/dL Albumin/Globulin Ratio 0.8 (1.0-2.7) 0.8 (1.0-2.7) Urine Color Pale yellow Urine Appearance Clear Urine pH 7 (4.5-8.0) Urine Specific [place] 1.005 (1.005-1.035) Urine Protein 1+ (NEGATIVE) Urine Glucose (UA) Negative (NEGATIVE) Urine Ketones Negative (NEGATIVE) Urine Blood 2+ (NEGATIVE) Urine Nitrite Negative (NEGATIVE) Urine Bilirubin Negative (NEGATIVE) Urine Urobilinogen Normal MG/DL (0.0-1.0) Urine Leukocyte Esterase 3+ (NEGATIVE) Urine RBC 2-4 /HPF (0 - 2) Urine WBC 15-20 /HPF (0 - 2) Urine Squamous Epithelial Cells Few /LPF (NONE/OCC) Urine Bacteria Few /HPF (NONE) Urine HCG, Qualitative Negative (NEGATIVE) Ionized Calcium (Measured) 0.89 mmol/L (1.10-1.35) Amylase Level 40 U/L (25-115) Lipase 244 U/L (73-393) Urine Test Test 04/29/19 09:42 Urine HCG, Qualitative Negative (NEGATIVE) Risk Assessment & Plan Assessment: asa3 Plan: mac Status Change Before Surgery: No Pre-Antibiotics Drug: Milady Viera MD Apr 30, 2019 06:40
[2019-04-30] MEDS ORDERED: fentaNYL 100 mcg/2 mL IV PRN (06:45)
[2019-04-30] MEDS ORDERED: DiphenhydrAMINE 50mg/ml Inj IVP PRN (06:45)
[2019-04-30] MEDS ORDERED: Midazolam 2mg/2ml Inj IVP PRN (06:45)
[2019-04-30] MEDS ORDERED: Atropine Inj 1mg/10ml Syr IV PRN (06:45)
[2019-04-30 07:08] LABS: ALANINE AMINOTRANSFERASE 123 U/L (12-78); ALBUMIN 3.4 G/DL (3.4-5.0); ALBUMIN/GLOBULIN RATIO 0.8 (1.0-2.7); ALKALINE PHOSPHATASE 52 U/L (46-116); AMYLASE 40 U/L (25-115); ANION GAP 12 mmol/L (5-15); ASPARTATE AMINO TRANSFERASE 58 U/L (15-37); BILIRUBIN,TOTAL 0.7 MG/DL (0.2-1.0); BLOOD UREA NITROGEN 9 mg/dL (7-18); CALCIUM 7.7 MG/DL (8.5-10.1); CARBON DIOXIDE 24 MMOL/L (21-32); CHLORIDE 105 MMOL/L (98-107); POTASSIUM 3.2 MMOL/L (3.5-5.1); SODIUM 141 MMOL/L (136-145)
--- NOTE | 2019-04-30 08:03 | NUR ---
NURSE NOTES: Report received from Juliana CHAVIS, rounds made. Patient alert, oriented x4, calm. VSS. Provided oral swabs, reinforced NPO status. Plans for colonoscopy at 0830 this AM, consent signed, bowel prep complete, clear output, no NV, no pain, no SOB on RA. Bilateral SCDs applied. IVF D5 1/2 +20KCL at 75 ml infusing without difficulty to LAC, site asymptomatic, dressing CDI. GI lab pre-op check list completed. Call light in reach, bed in lowest position, will continue to monitor.
--- NOTE | 2019-04-30 08:16 | NUR ---
NURSE NOTES: Dr. Loya notified of K level 3.2 this AM, reviewed current IVF. No further order received.
[2019-04-30] MEDS ORDERED: Lidocaine 1% MPF 10mg/ml 5ml ONE (09:00)
[2019-04-30] MEDS ORDERED: Losartan 25mg tab ORAL SCH (09:00)
[2019-04-30] MEDS ORDERED: Propofol 200mg/20ml IV ONE (09:00)
--- NOTE | 2019-04-30 09:08 | Pre-Procedure Note/Attestation ---
Pre-Procedure Note/Attestation Complete Prior to Procedure Planned Procedure: not applicable Procedure Narrative: colonoscopy Indications for Procedure Pre-Operative Diagnosis: rectal bleed Attestation I attest that I discussed the nature of the procedure; its benefits; risks and complications; and alternatives (and the risks and benefits of such alternatives ), prior to the procedure, with the patient (or the patient's legal customer relations representative). I attest that, if there was a reasonable possibility of needing a blood transfusion, the patient (or the patient's legal customer relations representative) was given the [facility] standardized written summary, pursuant to the Thom Barbie Blood Safety Act ([place] Health and Safety Code # 1645, as amended). I attest that I re-evaluated the patient just prior to the surgery and that there has been no change in the patient's H&P, except as documented below: Wai Loya MD Apr 30, 2019 09:08
--- NOTE | 2019-04-30 09:27 | Endoscopy Procedure Note ---
Endoscopy Procedure Note General Procedures Performed: colonoscopy Operative Findings/Diagnosis: colon polyps Specimen: yes Pt Tolerated Procedure Well: Yes Estimated Blood Loss: none Anesthesia Anesthesiologist: chemo Anesthesia: MAC Inserted Devices Implant(s) used?: No Quality Quality of Bowel Preparation: Good Did scope reach the cecum?: Yes GI Core Measures 50 yrs or older w/o bx or poly: Not Applicable 10yrs. F/U recommended: Not Applicable Wai Loya MD Apr 30, 2019 09:27
--- NOTE | 2019-04-30 11:15 | NUR ---
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 BLOODY STOOLS SI:GI BLEED . HYPOCALCEMIA VS: BP 127/84, P 92, T 98.7, RR 19, SpO2 97 K 2.8, CA 7.4, AST 96, ALT 146 IS:CALCIUM GLUCONATE 120ml IV MACROBID 100mg D5/NS x1L IV ADMITTED TO MED/SURG DCP: RETURN HOME COLONOSCOPY W/ SNARE POLYPECTOMY 04/30
--- NOTE | 2019-04-30 11:30 | NUR ---
NURSE NOTES: Patient returned from recovery at 1000 via [facility] s/p Colonoscopy. VSS. Regular diet and PO fluids provided as ordered. Patient tolerated 25% of meal, experiencing nausea, no emesis or dry heaves. Bowel sounds hypoactive. IVF resumed as ordered. Bilateral SCDs applied. Administered Zofran, will continue to monitor.
--- NOTE | 2019-04-30 15:22 | Consultation ---
History of Present Illness General Date patient seen: Apr 30, 2019 Chief Complaint: Gastrointestinal Bleed Present Illness HPI 43 year old female presented to ER with rectal bleeding and crampy pain with rectal pain that began this morning. She denies passing any clots. She has some rectal pain. She not sure if the lower abdominal cramping is related to her menstruation or was a separate problem. She is admitted for further work up. Allergies: Coded Allergies: SULFA (SULFONAMIDE ANTIBIOTICS) (Verified Allergy, Unknown, 02/24/19) Medication History Scheduled Cephalexin* (Keflex*), 500 MG ORAL EVERY 6 HOURS Losartan Potassium (Losartan Potassium), 25 MG PO DAILY Losartan Potassium* (Losartan Potassium*), 25 MG ORAL DAILY, (Reported) Potassium Chloride* (K-Dur*), 20 MEQ ORAL TWICE A DAY Scheduled PRN Acetaminophen* (Tylenol Extra Strength*), 500 MG ORAL Q8H PRN for Prn Headache/ Temp > 101 Calcium Carbonate (Calcium), 500 MG ORAL THREE TIMES A DAY PRN for HEARTBURN, ( Reported) Ondansetron Odt* (Zofran Odt*), 4 MG BC EVERY 6 HOURS PRN for Nausea & Vomiting Miscellaneous Medications Calcitriol (Calcitriol), 0.5 MCG GT, (Reported) Patient History Healthcare decision maker Resuscitation status Full Code Advanced Directive on File Past Medical/Surgical History Past Medical/Surgical History: (1) HTN (hypertension) Review of Systems All Other Systems: negative except mentioned in HPI Physical Exam General Appearance: WD/WN, no apparent distress Lines, tubes and drains: peripheral HEENT: normocephalic, anicteric Neck: non-tender, normal alignment Respiratory/Chest: chest wall non-tender, normal breath sounds Breasts: no masses Cardiovascular/Chest: normal rate, no JVD Genitourinary/Rectal: normal genital exam Extremities: normal range of motion Last 24 Hour Vital Signs Date Time Temp Pulse Resp B/P (MAP) Pulse Ox O2 Delivery O2 Flow Rate FiO2 04/30/19 12:00 98.1 83 17 121/82 (95) 97 04/30/19 10:45 98.4 89 18 135/82 (99) 97 04/30/19 09:55 97.8 77 13 115/74 100 Room Air 04/30/19 09:45 79 14 109/68 100 Room Air 04/30/19 09:40 74 15 105/72 100 Room Air 04/30/19 09:35 97.6 81 18 105/74 100 Simple Mask 6 04/30/19 09:00 Room Air 04/30/19 08:16 119/84 04/30/19 08:00 98.0 85 18 119/84 (96) 98 04/30/19 04:00 98.6 82 20 119/86 (97) 98 04/30/19 00:00 98.2 89 20 136/99 (111) 99 04/29/19 21:00 Room Air 04/29/19 20:00 98.8 87 20 143/98 (113) 96 04/29/19 16:00 98.1 78 19 125/87 (100) 97 Intake and Output 04/29/19 04/30/19 19:00 07:00 Intake Total 741 ml Output Total 1000 ml Balance 741 ml -1000 ml Intake Oral 591 ml IV Total 150 ml Output Urine Total 1000 ml # Voids 2 3 Laboratory Tests Test 04/30/19 05:35 White Blood Count 6.2 K/UL (4.8-10.8) Red Blood Count 4.44 M/UL (4.20-5.40) Hemoglobin 15.2 G/DL (12.0-16.0) Hematocrit 44.3 % (37.0-47.0) Mean Corpuscular Volume 100 FL (80-99) H Mean Corpuscular Hemoglobin 34.2 PG (27.0-31.0) H Mean Corpuscular Hemoglobin Concent 34.3 G/DL (32.0-36.0) Red Cell Distribution Width 12.0 % (11.6-14.8) Platelet Count 224 K/UL (150-450) Mean Platelet Volume 6.1 FL (6.5-10.1) L Neutrophils (%) (Auto) 54.3 % (45.0-75.0) Lymphocytes (%) (Auto) 32.9 % (20.0-45.0) Monocytes (%) (Auto) 10.0 % (1.0-10.0) Eosinophils (%) (Auto) 1.6 % (0.0-3.0) Basophils (%) (Auto) 1.2 % (0.0-2.0) Prothrombin Time 10.2 SEC (9.30-11.50) Prothromb Time International Ratio 1.0 (0.9-1.1) Activated Partial Thromboplast Time 27 SEC (23-33) Sodium Level 141 MMOL/L (136-145) Potassium Level 3.2 MMOL/L (3.5-5.1) L Chloride Level 105 MMOL/L (98-107) Carbon Dioxide Level 24 MMOL/L (21-32) Anion Gap 12 mmol/L (5-15) Blood Urea Nitrogen 9 mg/dL (7-18) Creatinine 1.0 MG/DL (0.55-1.30) Estimat Glomerular Filtration Rate > 60 mL/min (>60) Glucose Level 120 MG/DL (74-106) H Calcium Level 7.7 MG/DL (8.5-10.1) L Total Bilirubin 0.7 MG/DL (0.2-1.0) Aspartate Amino Transf (AST/SGOT) 58 U/L (15-37) H Alanine Aminotransferase (ALT/SGPT) 123 U/L (12-78) H Alkaline Phosphatase 52 U/L (46-116) Total Protein 7.8 G/DL (6.4-8.2) Albumin 3.4 G/DL (3.4-5.0) Globulin 4.4 g/dL Albumin/Globulin Ratio 0.8 (1.0-2.7) L Amylase Level 40 U/L (25-115) Lipase 244 U/L (73-393) Height (Feet): 5 Height (Inches): 3.00 Weight (Pounds): 180 Medications Current Medications Medications (Trade) Dose Ordered Sig/Sung Route PRN Reason Start Time Stop Time Status Last Admin Dose Admin Acetaminophen (Tylenol) 650 mg Q4H PRN ORAL fever 04/29/19 14:00 05/29/19 13:59 Al Hydroxide/Mg Hydroxide (Mylanta) 15 ml Q1H PRN ORAL gi upset 04/30/19 06:45 04/30/19 18:00 Atropine Sulfate (Atropine) 0.5 mg Q5M PRN IV bpm less than 45 04/30/19 06:45 04/30/19 18:00 Dextrose (Dextrose 50%) 25 ml Q30M PRN IV Hypoglycemia 04/29/19 14:00 05/29/19 13:59 Dextrose (Dextrose 50%) 50 ml Q30M PRN IV Hypoglycemia 04/29/19 14:00 05/29/19 13:59 Dextrose/ Electrolytes 1,000 ml @ 75 mls/hr [id number] IV 04/29/19 16:00 05/29/19 15:59 04/30/19 05:37 Dicyclomine HCl (Bentyl) 10 mg QIDPRN PRN ORAL Abdominal cramps 04/29/19 16:15 05/29/19 16:14 04/29/19 19:07 Diphenhydramine HCl (Benadryl) 25 mg Q15M PRN IVP Itching 04/30/19 06:45 04/30/19 18:00 Diphenhydramine HCl (Benadryl) 25 mg Q6H PRN ORAL Itching/Pruritis 04/29/19 14:00 05/29/19 13:59 Fentanyl Citrate (Sublimaze 100 mcg/2 mL) 25 mcg Q10M PRN IV Moderate Pain (Pain Scale 4-6) 04/30/19 06:45 04/30/19 18:00 Hydralazine HCl (Apresoline) 5 mg Q30M PRN IV SBP>160 OR___/DBP>90 OR___ 04/30/19 06:45 04/30/19 18:00 Losartan Potassium (Cozaar) 25 mg DAILY ORAL 04/30/19 09:00 05/30/19 08:59 04/30/19 08:16 Midazolam HCl (Versed 2mg/2ml vial) 1 mg Q15M PRN IVP For Anxiety 04/30/19 06:45 04/30/19 18:00 Nitroglycerin (Ntg) 0.4 mg Q5M X 3 DOSES PRN SL Prn Chest Pain 04/29/19 14:00 05/29/19 13:59 Ondansetron HCl (Zofran) 4 mg Q1H PRN IVP Nausea & Vomiting 04/30/19 06:45 04/30/19 18:00 Ondansetron HCl (Zofran) 4 mg Q6H PRN IVP Nausea & Vomiting 04/29/19 14:00 05/29/19 13:59 04/30/19 11:14 Polyethylene Glycol (Miralax) 17 gm HSPRN PRN ORAL Constipation 04/29/19 14:00 05/29/19 13:59 Temazepam (Restoril) 15 mg HSPRN PRN ORAL Insomnia 04/29/19 14:00 05/06/19 13:59 Assessment/Plan Problem List: (1) GIB (gastrointestinal bleeding) ICD Codes: K92.2 - Gastrointestinal hemorrhage, unspecified SNOMED: 10150817 (2) Rectal bleeding ICD Codes: K62.5 - Hemorrhage of anus and rectum SNOMED: 73876435 (3) HTN (hypertension) ICD Codes: I10 - Essential (primary) hypertension SNOMED: 60080793 (4) Hypokalemia ICD Codes: E87.6 - Hypokalemia SNOMED: 75624545 (5) Hemorrhoid ICD Codes: K64.9 - Unspecified hemorrhoids SNOMED: 56782451 Qualifiers: Qualified Codes: K64.9 - Unspecified hemorrhoids Assessment/Plan: NPO iv fluids gi evaluation prbc prn symptomatic treatment. Quinn Oleary MD Apr 30, 2019 15:22
--- NOTE | 2019-04-30 16:12 | NUR ---
*-* INSURANCE *-* ALL CLINICALS AND REVIEW HAVE BEEN FAXED TO: [employer]IC[employer] AT THIS TIME PLEASE FAX THE REVIEW/CLINICAL.. FX: [phone] & BS/PHIL-UR NCM: PILO Sousa P- [phone] F- [phone]....REVIEW/CLINICAL
--- NOTE | 2019-04-30 16:30 | Procedure Note ---
DATE OF PROCEDURE: 04/30/2019 SURGEON: Wai Loya M.D. PROCEDURE: Colonoscopy with snare polypectomy. ANESTHESIA: Per Dr. Wiggins. INSTRUMENT: Olympus adult flexible colonoscope. INDICATION: GI bleeding. REASON FOR PROCEDURE: The procedure, risks, benefits, and possible consequences, including hemorrhage, aspiration, perforation and infection, and alternative treatments, were explained to the patient/legal guardian by Dr. Wai Loya and the patient/legal guardian understood and accepted these risks. DESCRIPTION OF PROCEDURE: After informed consent was obtained and the patient was adequately sedated, rectal exam was performed which was normal. Then, the scope was advanced from the rectum into the cecum documented by appendiceal orifice, ileocecal valve, and right upper quadrant palpation. Quality of prep was very good. The patient had evidence of diverticulosis throughout the colon most probably the source of bleeding. There were 2 polyps, both removed with a hot snare polypectomy technique, one in the descending colon, one in the sigmoid. The one in the descending measured roughly about 6 to 7 and also the one in the sigmoid measured roughly about 6 mm. Retroflexion of rectum was performed, which showed evidence of medium-sized nonbleeding internal hemorrhoids. SUMMARY OF FINDINGS: 1. Two colonic polyps removed, see above for details. 2. Diverticulosis. 3. Internal hemorrhoids. RECOMMENDATIONS: 1. Resume diet. 2. Follow pathology. 3. Recommend repeat colonoscopy in 5 years. I want to thank Dr. Karl Houston for this kind referral. Wai Loya M.D. DR: SERGIO JOB#: [id number] CC: Karl Houston M.D.; Fax#: [phone]
--- NOTE | 2019-04-30 18:15 | NUR ---
NURSE NOTES: Discharge papers reviewed with patient, verbalized understanding. IV discontinued, no active bleeding. All belongings and discharge papers given to patient. Patient ambulated down to lobby with RN, in stable condition. Patient to drive herself home. Discharged home at 1815.
--- NOTE | 2019-04-30 22:21 | Immediate Post-Op Evaluation ---
Immediate Post-Op Evalulation Immediate Post-Op Evalulation Procedure: colonoscopy w/bx Date of Evaluation: Apr 30, 2019 Time of Evaluation: 09:47 IV Fluids: 325ml 0.9ns Blood Products: none Estimated Blood Loss: negligible Blood Pressure Systolic: 105 Blood Pressure Diastolic: 71 Pulse Rate: 81 Respiratory Rate: 18 O2 Sat by Pulse Oximetry: 100 Temperature (Fahrenheit): 97.6 Pain Score (1-10): 0 Nausea: No Vomiting: No Complications none Patient Status: awake, reacts, patent Hydration Status: adequate Drug: Milady Viera MD Apr 30, 2019 22:21
--- NOTE | 2019-04-30 22:24 | 48 Hour Post Anesthesia Eval ---
Post Anesthesia Evaluation Procedure: colonoscopy w/bx Date of Evaluation: Apr 30, 2019 Time of Evaluation: 09:49 Blood Pressure Systolic: 109 0: 68 Pulse Rate: 79 Respiratory Rate: 18 Temperature (Fahrenheit): 97.6 O2 Sat by Pulse Oximetry: 100 Airway: patent Nausea: No Vomiting: No Pain Intensity: 0 Hydration Status: adequate Cardiopulmonary Status: stable Mental Status/LOC: patient returned to baseline Post-Anesthesia Complications: none Follow-up care needed: N/A Milady Linares MD Apr 30, 2019 22:24
--- NOTE | 2019-05-02 21:49 | Discharge Summary ---
Discharge Summary Discharge Summary _ DATE OF ADMISSION: 04/29/2019 DATE OF DISCHARGE: 04/30/2019 DISCHARGED BY : Dr. Houston REASON FOR ADMISSION: 43 years old female with past medical history of hypertension, hyperparathyroidism , presented to emergency department with rectal bleeding , crampy abdominal pain and rectal pain. Symptoms began earlier in the morning , prior to presentation She denied passing any clots. Upon evaluation patient was not sure if the lower abdominal cramping related to her period or if that was a separate problem. She denied constipation. She denied fever and chills. No nausea no vomiting. Patient never had colonoscopy. No family history of cancer. She denied dysuria. She denied chest pain, dyspnea. Upon evaluation vital signs were stable. Laboratory work-up revealed no leukocytosis, stable hemoglobin and hematocrit: hemoglobin 14.4, hematocrit 42.4. Potassium 2.8. Calcium 7.4. Magnesium 1.2. BUN 8, creatinine 1.0. AST 96, ALT 146. Albumin 3.2. Urinalysis revealed pyuria and few bacteria. Urine test was negative. Patient admitted for further evaluation and management. CONSULTANTS: pulmonary Dr. Oleary GI specialist Dr. Loya [facility]SE: Patient admitted to medical surgical floor. Patient was kept n.p.o. and started on the IV fluids. Hemoglobin hematocrit were closely monitored. Electrolytes/potassium and magnesium replaced. Patient subsequently undergone colonoscopy with snare polypectomy which revealed 2 colonic polyps, which were removed. Colonoscopy also revealed diverticulosis and internal hemorrhoids. Patient started on diet as tolerated. GI specialist recommended to repeat colonoscopy in 5 years and follow-up with pathology results. Biopsy of descending polyp and sigmoid colon polyp consistent with hyperplastic polyp. Hemoglobin and hematocrit were closely monitored, and remained stable. Prior to discharge hemoglobin 15.2, hematocrit 44.3. Bowel regimen instituted. Supportive care provided. Pain management was addressed. Per GI specialist , patient likely had acute gastroenteritis which was resolving. Blood pressure was managed with the angiotensin receptor berto. Patient started on empiric antibiotics/Macrobid for UTI. At the time of the dictation urine culture grew Staphylococcus species coag negative with colony count more than 100 K and Streptococci viridans with colony count 40-50 daily. Patient remained afebrile, no leukocytosis, no urinary complaints. Patient with history of hyperparathyroidism, ionized calcium 0.89. As outpatient patient s is taking Sensipar and calcium. Patient was recommended to follow-up with her primary care provider for further management of hyperparathyroidism, and possible referral to bus monitor or ballistics professor as needed. Patient was able to tolerate diet. No further bleeding. Stable hemoglobin and hematocrit. Patient was stable for discharge home. Due to rapid and unexpected improvement in patient condition, patient was discharged in 1 day. FINAL DIAGNOSES: GI bleeding/rectal bleeding Hypokalemia Hypomagnesemia Acute gastroenteritis UTI Hypoparathyroidism DISCHARGE MEDICATIONS: See Medication Reconciliation list. DISCHARGE INSTRUCTIONS: Patient was discharged home. Follow up with primary care provider in one week. I have been assigned to dictate discharge summary for this account. I was not involved in the patient's management. Salima Vázquez NP May 02, 2019 21:49
--- NOTE | 2019-05-04 14:33 | Cardiology Report ---
APPROVED REPORT EKG Measurement Heart [id number] Normal sinus rhythm Right axis deviation Abnormal ECG
== END 2019-04-30 18:35 | disposition home or self-care (01) | DRG 244 ==
LOC: EMR 09:00 → 3E 11:48 → EDBEDREQ 12:28 → 3E 13:39
PROC: 0DBN8ZZ Excision of Sigmoid Colon, Via Natural or Artificial Opening Endoscopic (ICD-10-PCS; 2019-04-30)
PROC: 0DBM8ZZ Excision of Descending Colon, Via Natural or Artificial Opening Endoscopic (ICD-10-PCS; principal; 2019-04-30 09:00)
DX: K57.31 Diverticulosis of large intestine without perforation or abscess with bleeding (principal); E83.42 Hypomagnesemia; K63.5 Polyp of colon; K64.8 Other hemorrhoids; E03.9 Hypothyroidism, unspecified; N39.0 Urinary tract infection, site not specified; Z88.2 Allergy status to sulfonamides; E87.6 Hypokalemia; E20.9 Hypoparathyroidism, unspecified; K52.9 Noninfective gastroenteritis and colitis, unspecified
CPT/HCPCS: 36415; 80053; 81003; 81025; 82150; 82330; 83690; 83735; 85025; 85610; 85730; 87086; 93005; 93970; 94003; 94150; 96365; 99285; J2405; J8499

== ENCOUNTER 2019-10-30 21:33 | Emergency (ER) | payer MEDICAID ==
[~2019-10-30] VITALS: Ht 167.6 cm; Wt 72.6 kg
[2019-10-30 21:43] VITALS: BP 141/100
[2019-10-30] MEDS ORDERED: LORazepam Inj 2mg/ml 1ml IV ONE (21:45)
--- NOTE | 2019-10-30 21:47 | Emergency Room Report ---
History of Present Illness General Chief Complaint: Dyspnea/Respdistress Source: Patient Present Illness HPI Is a 44-year-old female with a history of hypoparathyroidism and hypertension. She also has a history of anxiety. She presents with chief complaint of palpitation and shortness of breath. Onset all day. She felt her heart beating fast and felt anxious. She also felt some twinge of chest pain. She said when this happened usually her calcium and potassium is low. Also occurred when she feeling anxious. Denies any fever chills. Denies any diaphoresis. No calf swelling. She took her Ativan and is not helping. Allergies: Coded Allergies: SULFA (SULFONAMIDE ANTIBIOTICS) (Verified Allergy, Unknown, 02/24/19) Patient History Past Medical History: see triage record, old chart reviewed, HTN, psych hx - Anxiety Past Surgical History: other Pertinent Family History: none Social History: Denies: smoking Last Menstrual Period: 09/2019 Immunizations: other Reviewed Nursing Documentation: PMH: Agreed; PSxH: Agreed Nursing Documentation-PMH Hx Cardiac Problems: Yes Hx Hypertension: Yes Hx Cancer: No Hx Gastrointestinal Problems: Yes Hx Neurological Problems: No Review of Systems Eye: Denies: eye pain, blurred vision ENT: Denies: ear pain, nose congestion, throat swelling Respiratory: Reports: shortness of breath; Denies: cough Cardiovascular: Reports: chest pain, palpitations Gastrointestinal: Denies: abdominal pain, diarrhea, nausea, vomiting Musculoskeletal: Denies: back pain, joint pain Skin: Denies: rash Neurological: Denies: headache, numbness Endocrine: Denies: increased thirst, increased urine Hematologic/Lymphatic: Denies: easy bruising All Other Systems: negative except mentioned in HPI Physical Exam Vital Signs Date Time Temp Pulse Resp B/P (MAP) Pulse Ox O2 Delivery O2 Flow Rate FiO2 10/30/19 21:38 130 18 95 Room Air Vitals with tachycardia Sp02 EP Interpretation: reviewed, normal General Appearance: well appearing, no apparent distress, alert Head: normocephalic, atraumatic Eyes: bilateral eye PERRL, bilateral eye EOMI ENT: hearing grossly normal, normal pharynx Neck: full range of motion, supple, no meningismus Respiratory: chest non-tender, lungs clear, normal breath sounds Cardiovascular #1: regular rate, rhythm, no murmur, tachycardia Gastrointestinal: normal bowel sounds, non tender, no mass, no organomegaly, no bruit, non-distended Musculoskeletal: back normal, normal range of motion, gait/station normal Psychiatric: anxious Medical Decision Making Diagnostic Impression: Primary Impression: Palpitations Additional Impressions: Hypokalemia Hypomagnesemia ER Course Patient presents with palpitation. Most likely anxiety related. After Ativan, her heart rate is now in the 90s. No evidence of ACS, PE, dissection to name a few. She does have low electrolyte levels. I gave her potassium and magnesium here. We will add that to her regimen. Hopefully this will increase her calcium level also. EKG Diagnostic Results Rate: tachycardiac Rhythm: NSR ST Segments: no acute changes Rhythm Strip Diag. Results EP Interpretation: yes Rate: 110 Rhythm: NSR, no PVC's, no ectopy Last Vital Signs Date Time Temp Pulse Resp B/P (MAP) Pulse Ox O2 Delivery O2 Flow Rate FiO2 10/30/19 21:38 130 18 95 Room Air Status: improved Disposition: HOME, SELF-CARE Condition: Stable Scripts Potassium Chloride* (K-DUR*) 20 Meq Tab.er.prt 20 MEQ ORAL DAILY, #30 TAB 0 Refills Prov: Jorge Avalos MD 10/30/19 Magnesium Oxide (MAGNESIUM OXIDE) 400 Mg Tablet 800 MG ORAL DAILY, #60 TAB 0 Refills Prov: Jorge Avalos MD 10/30/19 Additional Instructions: Follow-up with your doctor within a week. You will need your electrolytes recheck. Return if symptoms worsen. Jorge Avalos MD Oct 30, 2019 21:47
[2019-10-30 22:06] LABS: EOSINOPHILS % (AUTO) 1.2 % (0.0-3.0); HEMATOCRIT 43.3 % (37.0-47.0); HEMOGLOBIN 15.6 G/DL (12.0-16.0); LYMPHOCYTES % (AUTO) 35.4 % (20.0-45.0); MEAN CORPUSCULAR VOLUME 93 FL (80-99); MONOCYTES % (AUTO) 8.5 % (1.0-10.0); NEUTROPHILS % (AUTO) 52.8 % (45.0-75.0); PLATELET COUNT 122 K/UL (150-450); RED BLOOD COUNT 4.66 M/UL (4.20-5.40); RED CELL DISTRIBUTION WIDTH 10.5 % (11.6-14.8); WHITE BLOOD COUNT 8.4 K/UL (4.8-10.8)
[2019-10-30 22:44] LABS: ANION GAP 11 mmol/L (5-15); BLOOD UREA NITROGEN 9 mg/dL (7-18); CALCIUM 6.8 MG/DL (8.5-10.1); CARBON DIOXIDE 28 MMOL/L (21-32); CHLORIDE 103 MMOL/L (98-107); CREATININE 1.1 MG/DL (0.55-1.30); SODIUM 141 MMOL/L (136-145)
[2019-10-30 22:50] LABS: POTASSIUM 2.7 MMOL/L (3.5-5.1)
--- NOTE | 2019-10-30 22:50 | Diagnostic Imaging Report ---
EXAM: XR Chest, 1 View CLINICAL HISTORY: SOB TECHNIQUE: Frontal view of the chest. COMPARISON: Chest x-ray dated 06/01/2007 FINDINGS: Lungs: Unremarkable. No consolidation. Pleural space: Unremarkable. No pneumothorax. Heart: Unremarkable. No cardiomegaly. Mediastinum: Unremarkable. Bones/joints: Remote healed posterior left seventh rib fracture. IMPRESSION: No acute findings in the chest.
[2019-10-30] MEDS ORDERED: POTASSIUM CHLO20 ME1 ORAL (23:41)
[2019-10-30] MEDS ORDERED: MAGNESIUM OXID400 M1 ORAL (23:41)
[2019-10-31 00:30] VITALS: BP 117/71
== END 2019-10-31 00:30 | disposition home or self-care (01) ==
LOC: EMR 22:10
DX: R00.2 Palpitations (principal); E87.6 Hypokalemia; E83.42 Hypomagnesemia; I10 Essential (primary) hypertension; Z88.2 Allergy status to sulfonamides; F41.9 Anxiety disorder, unspecified; R07.9 Chest pain, unspecified; R00.0 Tachycardia, unspecified
CPT/HCPCS: 36415; 71045; 80048; 82330; 83735; 84484; 85025; 85379; 93005; 96361; 96365; 96375; J7030; Z7502; 99284; J8499

== ENCOUNTER 2019-12-21 19:31 | Emergency (ER) | payer MEDICAID ==
[~2019-12-21] VITALS: Ht 162.6 cm; Wt 83.9 kg
[~2019-12-21 19:31] MED LIST changes: +ACETAMINOPHEN-1 EAC1 ORAL; +IBU800 MG PO; +MAGNESIUM OXID400 M1 ORAL; -ROCATROL0.25 MCG GT; +ROCATROL0.25 MCG ORAL
[2019-12-21] MEDS ORDERED: Albuterol/Ipratropium 3ml neb HHN ONE (20:00)
[2019-12-21] MEDS ORDERED: GUAIFENESIN DM118 M1 ORAL (20:08)
[2019-12-21] MEDS ORDERED: ALBUTEROL SULF8.5 GM INH (20:08)
[2019-12-21] MEDS ORDERED: LORazepam 1mg tab ORAL ONE (21:45)
[2019-12-21 21:55] VITALS: BP 139/79
--- NOTE | 2019-12-22 10:28 | Diagnostic Imaging Report ---
Indication: Tortuous of breath Technique: One view of the chest Comparison: 10/30/2019 Findings: Old healed left rib fracture deformity again demonstrated. The lungs and pleural spaces are clear. The heart size is normal Impression: No acute process
--- NOTE | 2019-12-27 21:49 | Emergency Room Report ---
History of Present Illness General Chief Complaint: Chest Pain Source: Patient Present Illness HPI Patient is a 44-year-old female who presents after increased difficulty with breathing. Prior history of anxiety and hypocalcemia. She had been having some increased nasal congestion as well as nonproductive cough. Denies any leg pain or swelling. Some sore throat. Denies any vomiting or diarrhea. Had similar symptoms in the past. Allergies: Coded Allergies: SULFA (SULFONAMIDE ANTIBIOTICS) (Verified Allergy, Unknown, 02/24/19) Patient History Past Medical History: see triage record Now: No Reviewed Nursing Documentation: PMH: Agreed; PSxH: Agreed Nursing Documentation-PMH Hx Cardiac Problems: Yes Hx Hypertension: Yes Hx Cancer: No Hx Gastrointestinal Problems: Yes Hx Neurological Problems: No Review of Systems All Other Systems: negative except mentioned in HPI Physical Exam Sp02 EP Interpretation: reviewed, normal General Appearance: normal inspection, alert, obese Head: atraumatic ENT: normal ENT inspection, normal voice, pharyngeal erythema - Slight pharyngeal erythema no petechia no uvular deviation Neck: normal inspection, full range of motion, supple, no bony tend Respiratory: normal inspection, normal breath sounds, no respiratory distress, no retraction, wheezing - faint wheezing Cardiovascular #1: regular rate, rhythm, no edema Gastrointestinal: normal inspection, normal bowel sounds, non tender, soft, no guarding, no hernia Genitourinary: no CVA tenderness Musculoskeletal: normal inspection, back normal, normal range of motion Neurologic: alert, motor strength/tone normal, 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 Differential diagnosis included but was not limited to bronchitis, pneumonia, pulmonary embolism, pericarditis, asthma, foreign body. Patient has a benign exam and does not appear to require any imaging or laboratory testing at this time. Patient does not have known DVT risk factor. Appears to have a viral respiratory infection. Patient was given breathing treatment with improvement in her symptoms. She was also given oral Ativan due to anxiety. Patient patient is stable for outpatient management. She is advised to follow-up with primary care physician for recheck. She is advised to return if worse. The patient is advised to follow up with primary care doctor in 1-2 days. Patient is advised to return if any worsening condition or if any changes in status that are concerning. This report is dictated with [employer] flight attendant/inflight supervisor software which may occasionally lead to discrepancies related to use of this software. Status: improved Disposition: HOME, SELF-CARE Condition: Stable Scripts Guaifenesin/Dextromethorphan* (Guaifenesin Dm Syrup*) 5 Ml Syrup 5 ML ORAL Q6H PRN for FOR COUGH, #118 ML Prov: Trever Thomason MD 12/21/19 Albuterol Sulfate* (ALBUTEROL SULFATE MDI*) 8.5 Gm Hfa.aer.ad 2 PUFF INH Q6H, #1 EA 0 Refills Prov: Trever Thomason MD 12/21/19 Referrals: [facility],REFERRING (PCP) Patient Instructions: Viral Respiratory Infection Trever Thomason MD Dec 27, 2019 21:49
== END 2019-12-21 21:55 | disposition home or self-care (01) ==
LOC: EMR 21:21
DX: B34.9 Viral infection, unspecified (principal); Z88.2 Allergy status to sulfonamides; I10 Essential (primary) hypertension; F41.9 Anxiety disorder, unspecified
CPT/HCPCS: 71045; 93005; Z7502; 99284; J7620

== ENCOUNTER 2019-12-23 15:11 | Inpatient (IN) | payer MEDICAID ==
[~2019-12-23] VITALS: Ht 162.6 cm; Wt 86.2 kg
[~2019-12-23 15:11] MED LIST changes: +ALBUTEROL SULF8.5 GM INH; +GUAIFENESIN DM118 M1 ORAL
--- NOTE | 2019-12-23 15:20 | NUR ---
ED Nurse Note: Pt walked in from home c/o painful cough, difficulty breathing, N/V, and diarrhea. Pt states diarrhea is green and she has had 10 bowel movements today. Pt was here two days ago for flu like symptoms, but the N/V/diarrhea is new. Respirations even and unlabored on room air. Vitals stable as documented. Pt put on monitor.
--- NOTE | 2019-12-23 15:38 | Emergency Room Report ---
History of Present Illness General Chief Complaint: Flu Like Symptoms Source: Patient Present Illness HPI Disclaimer: Please note that this report is being documented using [employer] technology. This can lead to erroneous entry secondary to incorrect interpretation by the dictating instrument. HPI: 44-year-old female presents for myalgias, cough, vomiting and diarrhea. Patient was seen in the emergency department few days ago diagnosed with a respiratory illness after reporting several days of productive cough, fever, fatigue and myalgias. Over the past 2 days she has had vomiting and diarrhea, almost constant. She states the vomiting is bilious but denies blood in the vomitus or the stool. Denies significant abdominal pain. States her chest pain is getting worse from persistent coughing. She also had some tingling sensation in the left arm over the past few days where she feels it is falling asleep. Has been using the albuterol inhaler and cough syrup prescribed but is now been taking Tylenol or ibuprofen. Last vomiting and diarrhea proximally 1 hour ago. Feels dehydrated. PMH: Hypertension, hypoparathyroidism PSH: Cholecystectomy Allergies: Sulfa medications Social Hx: Denies drug, alcohol or tobacco use Allergies: Coded Allergies: SULFA (SULFONAMIDE ANTIBIOTICS) (Verified Allergy, Unknown, 02/24/19) Patient History Last Menstrual Period: 12/16/19 Nursing Documentation-PMH Past Medical History: No History, Except For Hx Cardiac Problems: Yes - Hypoparathyroidism Hx Hypertension: Yes Hx Pacemaker: No Hx Asthma: No Hx COPD: No Hx Diabetes: No Hx Cancer: No Hx Gastrointestinal Problems: Yes Hx Dialysis: No History Of Psychiatric Problem: No Hx Neurological Problems: No Hx Cerebrovascular Accident: No Hx Seizures: No Review of Systems All Other Systems: negative except mentioned in HPI Physical Exam Vital Signs Date Time Temp Pulse Resp B/P (MAP) Pulse Ox O2 Delivery O2 Flow Rate FiO2 12/23/19 15:16 99.1 119 16 91/55 (67) 96 Room Air General: Awake and alert, no acute distress HEENT: NC/AT. EOMI. dry mucous membranes Chest Wall: No deformity, tender palpation over the sternum, no crepitus Cardiovascular: Borderline tachycardia. S1 and S2 normal. No murmur appreciated Resp: Normal work of breathing. Intermittent cough. No wheezing or crackles appreciated Abdomen: Abdomen is soft, nondistended. Nontender Skin: Intact. No abrasions, laceration or rash over the exposed skin MSK: Normal tone and bulk. Moving all extremities. No obvious deformity. Neuro: Awake and alert. Mentating appropriately. Medical Decision Making Diagnostic Impression: Primary Impression: Influenza-like syndrome Additional Impressions: Hypokalemia Elevated liver enzymes Pyelonephritis ER Course 44-year-old female presents for evaluation of worsening cough, myalgias, fatigue and 2 days of vomiting and diarrhea. Seen in the emergency department 2 days ago diagnosed with a respiratory illness, likely viral. Has been using albuterol and cough medication without significant improvement and now having vomiting diarrhea and feels dehydrated. Overall she is well-appearing the slightly tachycardic. Will give IV fluids, antiemetics, recheck labs EKG and chest x-ray. Laboratory Tests Test 12/23/19 15:40 12/23/19 17:00 White Blood Count 6.8 K/UL (4.8-10.8) Red Blood Count 4.51 M/UL (4.20-5.40) Hemoglobin 15.6 G/DL (12.0-16.0) Hematocrit 46.7 % (37.0-47.0) Mean Corpuscular Volume 104 FL (80-99) H Mean Corpuscular Hemoglobin 34.5 PG (27.0-31.0) H Mean Corpuscular Hemoglobin Concent 33.3 G/DL (32.0-36.0) Red Cell Distribution Width 11.5 % (11.6-14.8) L Platelet Count 265 K/UL (150-450) Mean Platelet Volume 7.1 FL (6.5-10.1) Neutrophils (%) (Auto) 51.0 % (45.0-75.0) Lymphocytes (%) (Auto) 40.5 % (20.0-45.0) Monocytes (%) (Auto) 7.2 % (1.0-10.0) Eosinophils (%) (Auto) 0.5 % (0.0-3.0) Basophils (%) (Auto) 0.8 % (0.0-2.0) Sodium Level 137 MMOL/L (136-145) Potassium Level 2.9 MMOL/L (3.5-5.1) L Chloride Level 94 MMOL/L (98-107) L Carbon Dioxide Level 22 MMOL/L (21-32) Anion Gap 21 mmol/L (5-15) H Blood Urea Nitrogen 12 mg/dL (7-18) Creatinine 1.4 MG/DL (0.55-1.30) H Estimate Glomerular Filtration Rate 40.9 mL/min (>60) Glucose Level 121 MG/DL (74-106) H Calcium Level 6.7 MG/DL (8.5-10.1) L Total Bilirubin 0.6 MG/DL (0.2-1.0) Aspartate Amino Transferase (AST) 167 U/L (15-37) H Alanine Aminotransferase (ALT) 149 U/L (12-78) H Alkaline Phosphatase 77 U/L (46-116) Troponin I 0.000 ng/mL (0.000-0.056) Total Protein 8.4 G/DL (6.4-8.2) H Albumin 3.8 G/DL (3.4-5.0) Globulin 4.6 g/dL Albumin/Globulin Ratio 0.8 (1.0-2.7) L Lipase 444 U/L (73-393) H Urine Color Pale yellow Urine Appearance Slightly cloudy Urine pH 6 (4.5-8.0) Urine Specific [place] 1.005 (1.005-1.035) Urine Protein 2+ (NEGATIVE) H Urine Glucose (UA) Negative (NEGATIVE) Urine Ketones Negative (NEGATIVE) Urine Blood 4+ (NEGATIVE) H Urine Nitrite Negative (NEGATIVE) Urine Bilirubin Negative (NEGATIVE) Urine Urobilinogen Normal MG/DL (0.0-1.0) Urine Leukocyte Esterase 3+ (NEGATIVE) H Urine RBC 40-60 /HPF (0 - 2) H Urine WBC 20-30 /HPF (0 - 2) H Urine Squamous Epithelial Cells Many /LPF (NONE/OCC) H Urine Bacteria Moderate /HPF (NONE) H Urine HCG, Qualitative Negative (NEGATIVE) EKG Diagnostic Results EKG Time: 16:02 Rate: normal Rhythm: NSR ST Segments: no acute changes Other Impression Sinus tachycardia, slight right axis, normal intervals, no ST segment changes. Rhythm Strip Diag. Results Rhythm Strip Time: 16:02 EP Interpretation: yes Rate: 105 Rhythm: NSR, no PVC's, no ectopy Chest X-Ray Diagnostic Results Chest X-Ray Diagnostic Results : Chest X-Ray Ordered: Yes # of Views/Limited/Complete: 1 View Indication: Shortness of Breath EP Interpretation: Yes Interpretation: no consolidation, no effusion, no pneumothorax, no acute cardiopulmonary disease Impression: No acute disease Electronically Signed by: Electronically signed by Dr. Jos Crouch Reevaluation Time: 20:00 Last Vital Signs Date Time Temp Pulse Resp B/P (MAP) Pulse Ox O2 Delivery O2 Flow Rate FiO2 12/23/19 15:16 99.1 119 16 91/55 (67) 96 Room Air Reevaluation Impression Labs show white count within normal limits, chemistry with slight elevation in creatinine and potassium is low. Patient has had low potassium in the past and was taking supplements but no longer. Slight elevation in AST and ALT as with previous hospitalization. Lipase just above normal at 444. Troponin negative. Urinalysis concerning for acute urinary tract infection and given the patient' s overall picture of pyelonephritis. She continues to vomit in the emergency department unable to hold down juice or food. Concerned that she would not be able to take her antibiotics on an outpatient basis. Will start IV antibiotics and admit the patient for pyelonephritis and uncontrollable emesis. Disposition: ADMITTED INPATIENT Condition: Serious Jos Crouhc MD Dec 23, 2019 15:38
[2019-12-23] MEDS ORDERED: Ketorolac 30mg Inj IV ONE (15:45)
[2019-12-23 16:18] VITALS: BP 95/57
--- NOTE | 2019-12-23 16:18 | NUR ---
ED Nurse Note: Pt tried to give urine sample and it was unsuccessful. Pt said she will try again in 15 minutes.
[2019-12-23 16:28] LABS: ANION GAP 21 mmol/L (5-15); BLOOD UREA NITROGEN 12 mg/dL (7-18); CALCIUM 6.7 MG/DL (8.5-10.1); CARBON DIOXIDE 22 MMOL/L (21-32); CHLORIDE 94 MMOL/L (98-107); CREATININE 1.4 MG/DL (0.55-1.30); POTASSIUM 2.9 MMOL/L (3.5-5.1); SODIUM 137 MMOL/L (136-145)
[2019-12-23 16:35] LABS: BASOPHILS % (AUTO) 0.8 % (0.0-2.0); EOSINOPHILS % (AUTO) 0.5 % (0.0-3.0); HEMATOCRIT 46.7 % (37.0-47.0); HEMOGLOBIN 15.6 G/DL (12.0-16.0); LYMPHOCYTES % (AUTO) 40.5 % (20.0-45.0); MEAN CORPUSCULAR VOLUME 104 FL (80-99); MONOCYTES % (AUTO) 7.2 % (1.0-10.0); PLATELET COUNT 265 K/UL (150-450); RED BLOOD COUNT 4.51 M/UL (4.20-5.40); RED CELL DISTRIBUTION WIDTH 11.5 % (11.6-14.8); WHITE BLOOD COUNT 6.8 K/UL (4.8-10.8)
[2019-12-23 16:36] LABS: ALANINE AMINOTRANSFERASE 149 U/L (12-78); ALBUMIN 3.8 G/DL (3.4-5.0); ALBUMIN/GLOBULIN RATIO 0.8 (1.0-2.7); ALKALINE PHOSPHATASE 77 U/L (46-116); ASPARTATE AMINO TRANSFERASE 167 U/L (15-37); BILIRUBIN,TOTAL 0.6 MG/DL (0.2-1.0)
--- NOTE | 2019-12-23 16:38 | Diagnostic Imaging Report ---
Indication: Shortness of breath Technique: One view of the chest Comparison: none Findings: Lungs and pleural spaces are clear. Heart size is normal. There is an old healed left rib fracture deformity Impression: No acute process
--- NOTE | 2019-12-23 16:55 | NUR ---
ED Nurse Note: urine sent to lab
[2019-12-23 17:34] LABS: APPEARANCE,URINE SLIGHTLY CLOUDY; BILIRUBIN, URINE NEGATIVE (NEGATIVE); COLOR,URINE PALE YELLOW; GLUCOSE, URINE (UA) NEGATIVE (NEGATIVE); KETONES,URINE NEGATIVE (NEGATIVE); LEUKOCYTE ESTERASE ,URINE 3+ (NEGATIVE); NITRITE,URINE NEGATIVE (NEGATIVE); PH,URINE 6 (4.5-8.0); PROTEIN,URINE 2+ (NEGATIVE); UROBILINOGEN,URINE NORMAL MG/DL (0.0-1.0)
--- NOTE | 2019-12-23 18:40 | NUR ---
ED Nurse Note: Fluid challenge of apple juice. Pt says she is nauseous, but no vomiting.
[2019-12-23] MEDS ORDERED: cefTRIAXone 1 GM in NS 55 ML IVPB ONE (18:45)
--- NOTE | 2019-12-23 19:00 | NUR ---
ED Nurse Note: received patient from cassie lunsford. patient resting in bed with no acute distress. ao4. vss. iv intact and patent. discussed plan of care with patient; pt aware of pending admission. pt reports slight abdominal pain; pt states pain is tolerable and medication is not required at the moment; pt states pain has decreased since arrival to ed. will continue to monitor.
[2019-12-23 19:13] VITALS: BP 120/82
--- NOTE | 2019-12-23 20:31 | NUR ---
ED Nurse Note: PT REPORTS NAUSEA. NOTIFIED ERMD; MED ORDER RECEIVED; NOTED AND CARRIED OUT
[2019-12-23 20:36] VITALS: BP 127/89
[2019-12-23 21:30] VITALS: BP 126/89
[2019-12-23] MEDS ORDERED: Albuterol 90mcg Inhaler 8gm INH SCH (21:30)
[2019-12-23] MEDS ORDERED: Nitroglycerin Subl 0.4mg tab SL PRN (21:30)
[2019-12-23] MEDS ORDERED: DiphenhydrAMINE 25mg Tab ORAL PRN (21:30)
[2019-12-23] MEDS ORDERED: Miralax 17gm pkt ORAL PRN (21:30)
--- NOTE | 2019-12-23 22:10 | NUR ---
TRANSFER TO FLOOR: Patient transferred to [place] [id number] as ordered, per cecilia. Report given to swathi lunsford. patient in stable condition. transfered to unit via wheelchair with [facility]. patient left ed with all belongings and admission packet.
[2019-12-23 23:12] LABS: CREATINE KINASE 172 U/L (26-308)
[2019-12-23] MEDS: Morphine Sulfate 2mg/ml Inj(IV/IM USE ONLY) IVP PRN (23:27)
[2019-12-23] MEDS: ALPRAZolam 0.5mg tab ORAL PRN (23:27)
[2019-12-23 23:36] LABS: APPEARANCE,URINE SLIGHTLY CLOUDY; BILIRUBIN, URINE NEGATIVE (NEGATIVE); COLOR,URINE PALE YELLOW; GLUCOSE, URINE (UA) NEGATIVE (NEGATIVE); KETONES,URINE NEGATIVE (NEGATIVE); LEUKOCYTE ESTERASE ,URINE 3+ (NEGATIVE); NITRITE,URINE NEGATIVE (NEGATIVE); PH,URINE 6 (4.5-8.0); PROTEIN,URINE 2+ (NEGATIVE); UROBILINOGEN,URINE NORMAL MG/DL (0.0-1.0)
[2019-12-23] MEDS: D5 1/2NS 1,000 ML IV SCH (23:42)
--- NOTE | 2019-12-24 | NUR ---
NURSE NOTES: Pt came to the unit on stable condition. report received from Cloe Garner RN. Pt is AOX4, verbally responsive. On room air, no acute distress noted. Denies pain at this time. Belonging list verified and at bedside. Skin intact. Robert Lee pt to the unit.Bed in low and locked position. call light within reach. Will continue to monitor the pt.
[2019-12-24 00:06] VITALS: BP 127/89
[2019-12-24 04:00] VITALS: BP 122/81
[2019-12-24] MEDS: Morphine Sulfate 2mg/ml Inj(IV/IM USE ONLY) IVP PRN ×4 (05:47→21:34)
[2019-12-24 06:44] LABS: BASOPHILS % (AUTO) 0.8 % (0.0-2.0); EOSINOPHILS % (AUTO) 1.1 % (0.0-3.0); HEMATOCRIT 39.6 % (37.0-47.0); HEMOGLOBIN 13.9 G/DL (12.0-16.0); LYMPHOCYTES % (AUTO) 37.2 % (20.0-45.0); MEAN CORPUSCULAR VOLUME 100 FL (80-99); MONOCYTES % (AUTO) 6.8 % (1.0-10.0); NEUTROPHILS % (AUTO) 54.2 % (45.0-75.0); PLATELET COUNT 198 K/UL (150-450); RED BLOOD COUNT 3.96 M/UL (4.20-5.40); RED CELL DISTRIBUTION WIDTH 11.1 % (11.6-14.8)
[2019-12-24 06:51] LABS: ALANINE AMINOTRANSFERASE 123 U/L (12-78); ALBUMIN 3.3 G/DL (3.4-5.0); ALBUMIN/GLOBULIN RATIO 0.7 (1.0-2.7); ALKALINE PHOSPHATASE 63 U/L (46-116); AMYLASE 28 U/L (25-115); ANION GAP 14 mmol/L (5-15); ASPARTATE AMINO TRANSFERASE 117 U/L (15-37); BILIRUBIN,TOTAL 0.9 MG/DL (0.2-1.0); BLOOD UREA NITROGEN 12 mg/dL (7-18); CARBON DIOXIDE 25 MMOL/L (21-32); CHLORIDE 102 MMOL/L (98-107); CREATININE 1.4 MG/DL (0.55-1.30); POTASSIUM 3.6 MMOL/L (3.5-5.1); SODIUM 141 MMOL/L (136-145)
[2019-12-24 07:00] LABS: CALCIUM 5.8 MG/DL (8.5-10.1)
--- NOTE | 2019-12-24 07:10 | NUR ---
NURSE NOTES: Reported critical lab value calcium 5.[address] Houston with no new orders
--- NOTE | 2019-12-24 07:17 | NUR ---
HAND-OFF: Report given to PARTHA Martinez.
--- NOTE | 2019-12-24 07:30 | NUR ---
NURSE NOTES: Received patient in bed. A/O x4. Patient is on room air, respirations even and unlabored. Patient denies pain at this time, No complaints of nausea or vomiting. Iv in the Right AC running 1/2 NS at 75 mL/hr.
[2019-12-24] MEDS: Albuterol 90mcg Inhaler 8gm INH SCH ×3 (07:58→21:46)
[2019-12-24 08:00] VITALS: BP 129/92
[2019-12-24] MEDS: Pantoprazole Inj IVP SCH (08:26)
[2019-12-24] MEDS: Losartan 25mg tab ORAL SCH (08:26)
[2019-12-24] MEDS: Heparin 5000 units/ml inj SUBQ SCH ×2 (08:34→20:52)
--- NOTE | 2019-12-24 11:24 | Diagnostic Imaging Report ---
Indication:Elevated Bun and Creatinine. Technique: Grayscale and duplex Doppler imaging of the kidneys performed. Comparison: None Findings: There are calcific foci within the renal medulla bilaterally consistent with the stones. There is generalized increased echogenicity of the renal medulla which suggests nephrocalcinosis. There is no hydronephrosis. The right kidney measures 9.5 cm in length. There is a 2.5 cm cyst within the left kidney. The left kidney 10 cm in length. IVC is patent. There is a cyst within the left kidney measuring 1.6 cm. Urinary bladder is unremarkable. IMPRESSION: Bilateral nonobstructive nephrolithiasis. 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 Bilateral renal cysts.
[2019-12-24 12:00] VITALS: BP 123/73
--- NOTE | 2019-12-24 12:00 | NUR ---
NURSE NOTES: Notified Dr. Adler of Calcium lab value. Ordered to continue home med of calcitriol.
[2019-12-24] MEDS: D5 1/2NS 1,000 ML IV SCH (12:15)
--- NOTE | 2019-12-24 12:53 | Pulmonology Progress Note ---
Assessment/Plan Problems: (1) Influenza-like syndrome (2) Acute gastroenteritis (3) UTI (urinary tract infection) Assessment/Plan butterfield culture iv abx GI and ID evaluation symptomatic treatment dvt prophylaxis. Subjective ROS Limited/Unobtainable: No Allergies: Coded Allergies: SULFA (SULFONAMIDE ANTIBIOTICS) (Verified Allergy, Unknown, 02/24/19) Objective Last 24 Hour Vital Signs Date Time Temp Pulse Resp B/P (MAP) Pulse Ox O2 Delivery O2 Flow Rate FiO2 12/24/19 09:00 Room Air 12/24/19 08:26 129/72 12/24/19 08:00 98.0 94 18 129/92 (104) 97 12/24/19 07:58 96 18 97 Room Air 21 12/24/19 07:57 95 18 96 Room Air 21 12/24/19 04:00 98.0 99 20 122/81 (95) 97 12/24/19 00:06 98.6 100 17 127/89 (102) 97 12/23/19 23:04 Room Air 12/23/19 22:10 98.9 98 14 126/89 98 Room Air 12/23/19 22:00 Room Air 21 12/23/19 22:00 Room Air 21 12/23/19 21:30 98.9 98 14 126/89 98 Room Air 12/23/19 20:36 98.9 111 14 127/89 98 Room Air 12/23/19 19:13 98.9 100 15 120/82 98 Room Air 12/23/19 16:18 99.1 100 16 95/57 96 Room Air 12/23/19 16:18 100 16 Room Air 12/23/19 15:16 99.1 119 16 91/55 (67) 96 Room Air Intake and Output 12/23/19 12/24/19 19:00 07:00 Intake Total 2000 ml 630 ml Balance 2000 ml 630 ml Intake Oral 0 ml 30 ml IV Total 2000 ml 600 ml # Voids 3 # Bowel Movements 1 General Appearance: WD/WN HEENT: normocephalic Respiratory/Chest: chest wall non-tender, no respiratory distress Cardiovascular: normal peripheral pulses, regular rhythm Abdomen: normal bowel sounds, soft, non tender Extremities: no cyanosis, no clubbing Skin: no lesions Microbiology Date/Time Source Procedure Growth Status 12/23/19 17:00 Urine,Clean Catch Urine Culture - Preliminary Resulted Laboratory Tests 12/23/19 15:40: White Blood Count 6.8, Red Blood Count 4.51, Hemoglobin 15.6, Hematocrit 46.7, Mean Corpuscular Volume 104H, Mean Corpuscular Hemoglobin 34.5H, Mean Corpuscular Hemoglobin Concent 33.3, Red Cell Distribution Width 11.5L, Platelet Count 265, Mean Platelet Volume 7.1, Neutrophils (%) (Auto) 51.0, Lymphocytes (%) (Auto) 40.5, Monocytes (%) (Auto) 7.2, Eosinophils (%) (Auto) 0.5, Basophils (%) (Auto) 0.8, Sodium Level 137, Potassium Level 2.9L, Chloride Level 94L, Carbon Dioxide Level 22, Anion Gap 21H, Blood Urea Nitrogen 12, Creatinine 1.4H, Estimat Glomerular Filtration Rate 40.9, Glucose Level 121H, Uric Acid 8.7H, Calcium Level 6.7L, Total Bilirubin 0.6, Aspartate Amino Transf (AST/SGOT) 167H, Alanine Aminotransferase (ALT/SGPT) 149H, Alkaline Phosphatase 77, Total Creatine Kinase 172, Troponin I 0.000, Total Protein 8.4H, Albumin 3.8 , Globulin 4.6, Albumin/Globulin Ratio 0.8L, Lipase 444H 12/23/19 16:50: Urine Color Pale yellow, Urine Appearance Slightly cloudy, Urine pH 6, Urine Specific [place] 1.010, Urine Protein 2+H, Urine Glucose (UA) Negative, Urine Ketones Negative, Urine Blood 5+H, Urine Nitrite Negative, Urine Bilirubin Negative, Urine Urobilinogen Normal, Urine Leukocyte Esterase 3+H, Urine RBC TntcH, Urine WBC TntcH, Urine Squamous Epithelial Cells Few, Urine Bacteria ManyH, Urine Eosinophils None seen, Urine Osmolality 190L, Urine Random Creatinine [Pending], Urine Random Microalbumin [Pending], Urine Random Sodium < 20L, Urine Microalbumin/Creatinine Ratio [Pending] 12/23/19 17:00: Urine Color Pale yellow, Urine Appearance Slightly cloudy, Urine pH 6, Urine Specific [place] 1.005, Urine Protein 2+H, Urine Glucose (UA) Negative, Urine Ketones Negative, Urine Blood 4+H, Urine Nitrite Negative, Urine Bilirubin Negative, Urine Urobilinogen Normal, Urine Leukocyte Esterase 3+H, Urine RBC 40- 60H, Urine WBC 20-30H, Urine Squamous Epithelial Cells ManyH, Urine Bacteria ModerateH, Urine HCG, Qualitative Negative 12/24/19 05:35: White Blood Count 6.0, Red Blood Count 3.96L, Hemoglobin 13.9, Hematocrit 39.6, Mean Corpuscular Volume 100H, Mean Corpuscular Hemoglobin 35.1H, Mean Corpuscular Hemoglobin Concent 35.1, Red Cell Distribution Width 11.1L, Platelet Count 198, Mean Platelet Volume 6.2L, Neutrophils (%) (Auto) 54.2, Lymphocytes (%) (Auto) 37.2, Monocytes (%) (Auto) 6.8, Eosinophils (%) (Auto) 1.1, Basophils (%) (Auto) 0.8, Sodium Level 141, Potassium Level 3.6, Chloride Level 102, Carbon Dioxide Level 25, Anion Gap 14, Blood Urea Nitrogen 12, Creatinine 1.4H, Estimat Glomerular Filtration Rate 40.9, Glucose Level 103, Calcium Level 5.8*L, Total Bilirubin 0.9, Aspartate Amino Transf (AST/SGOT) 117H , Alanine Aminotransferase (ALT/SGPT) 123H, Alkaline Phosphatase 63, Total Protein 7.8, Albumin 3.3L, Globulin 4.5, Albumin/Globulin Ratio 0.7L, Lipase 349 , Activated Partial Thromboplast Time 28, Amylase Level 28 Current Medications Medications (Trade) Dose Ordered Sig/Sung Route PRN Reason Start Time Stop Time Status Last Admin Dose Admin Acetaminophen (Tylenol) 650 mg Q4H PRN ORAL fever 12/23/19 21:30 01/22/20 21:29 Albuterol Sulfate (Proventil MDI) 2 puff Q6HRT INH 12/24/19 07:00 01/22/20 21:29 12/24/19 12:25 Alprazolam (Xanax) 1 mg Q6H PRN ORAL For Anxiety 12/23/19 23:15 12/30/19 23:14 12/23/19 23:27 Dextrose (Dextrose 50%) 25 ml Q30M PRN IV Hypoglycemia 12/23/19 21:30 01/22/20 21:29 Dextrose (Dextrose 50%) 50 ml Q30M PRN IV Hypoglycemia 12/23/19 21:30 01/22/20 21:29 Dextrose/Sodium Chloride 1,000 ml @ 75 mls/hr [id number] IV 12/23/19 22:00 01/22/20 21:59 12/24/19 12:15 Diphenhydramine HCl (Benadryl) 25 mg Q6H PRN ORAL Itching/Pruritis 12/23/19 21:30 01/22/20 21:29 Heparin Sodium (Porcine) (Heparin 5000 units/ml) 5,000 units EVERY 12 HOURS SUBQ 12/24/19 09:00 01/23/20 08:59 12/24/19 08:34 Losartan Potassium (Cozaar) 25 mg DAILY ORAL 12/24/19 09:00 01/23/20 08:59 12/24/19 08:26 Morphine Sulfate (Morphine Sulfate) 2 mg Q4H PRN IVP moderate to severe pain 12/23/19 23:00 12/30/19 22:59 12/24/19 12:10 Nitroglycerin (Ntg) 0.4 mg Q5M X 3 DOSES PRN SL Prn Chest Pain 12/23/19 21:30 01/22/20 21:29 Ondansetron HCl (Zofran) 4 mg Q6H PRN IVP Nausea & Vomiting 12/23/19 21:30 01/22/20 21:29 12/24/19 12:09 Pantoprazole (Protonix) 40 mg DAILY IVP 12/24/19 09:00 01/23/20 08:59 12/24/19 08:26 Polyethylene Glycol (Miralax) 17 gm HSPRN PRN ORAL Constipation 12/23/19 21:30 01/22/20 21:29 Temazepam (Restoril) 15 mg HSPRN PRN ORAL Insomnia 12/23/19 21:30 12/30/19 21:29 12/23/19 23:27 Quinn Oleary MD Dec 24, 2019 12:53
--- NOTE | 2019-12-24 14:16 | NUR ---
CASE MANAGEMENT:INITIAL REVIEW 44 YR OLD FEMALE PRESENTED TO ED FROM HOME CC;FLU LIKE SYMPTOMS SI;INFLUENZA LIKE SYNDROME. PYELONEPHTITIS. ELEVATED LFT. 99.1 119 14 94/55 96% ON RA K+ 2.9 CL 94 CR 1.4 AST 167 ALT 149 LIPASE 444 CXR - NEGATIVE IS;IVF NS BOLUS X1 ZOFRAN IV X1 TORADOL IV X1 ADMITTED TO MED SURG MED SURG STATUS DCP;FROM HOME
--- NOTE | 2019-12-24 14:58 | General Progress Note ---
Assessment/Plan Problem List: (1) HTN (hypertension) ICD Codes: I10 - Essential (primary) hypertension SNOMED: 96979126 (2) Hypokalemia ICD Codes: E87.6 - Hypokalemia SNOMED: 96188496 (3) Elevated liver enzymes ICD Codes: R74.8 - Abnormal levels of other serum enzymes SNOMED: 100315909 (4) Influenza-like syndrome ICD Codes: J11.1 - Influenza due to unidentified influenza virus with other respiratory manifestations SNOMED: 23252348, 061645183 (5) Acute gastroenteritis ICD Codes: K52.9 - Noninfective gastroenteritis and colitis, unspecified SNOMED: 24821180 Assessment/Plan: replace electrolytes stool studies ivf abd us repeat labs hepatitis panel Subjective ROS Limited/Unobtainable: Yes Allergies: Coded Allergies: SULFA (SULFONAMIDE ANTIBIOTICS) (Verified Allergy, Unknown, 02/24/19) Objective Last 24 Hour Vital Signs Date Time Temp Pulse Resp B/P (MAP) Pulse Ox O2 Delivery O2 Flow Rate FiO2 12/24/19 12:27 93 18 95 Room Air 12/24/19 12:25 92 18 95 Room Air 12/24/19 12:00 98.4 98 19 123/73 (90) 99 12/24/19 09:00 Room Air 12/24/19 08:26 129/72 12/24/19 08:00 98.0 94 18 129/92 (104) 97 12/24/19 07:58 96 18 97 Room Air 21 12/24/19 07:57 95 18 96 Room Air 12/24/19 04:00 98.0 99 20 122/81 (95) 97 12/24/19 00:06 98.6 100 17 127/89 (102) 97 12/23/19 23:04 Room Air 12/23/19 22:10 98.9 98 14 126/89 98 Room Air 12/23/19 22:00 Room Air 21 12/23/19 22:00 Room Air 21 12/23/19 21:30 98.9 98 14 126/89 98 Room Air 12/23/19 20:36 98.9 111 14 127/89 98 Room Air 12/23/19 19:13 98.9 100 15 120/82 98 Room Air 12/23/19 16:18 99.1 100 16 95/57 96 Room Air 12/23/19 16:18 100 16 Room Air 12/23/19 15:16 99.1 119 16 91/55 (67) 96 Room Air Intake and Output 12/23/19 12/24/19 19:00 07:00 Intake Total 2000 ml 705 ml Balance 2000 ml 705 ml Intake Oral 0 ml 30 ml IV Total 2000 ml 675 ml # Voids 3 # Bowel Movements 1 Laboratory Tests 12/23/19 15:40: White Blood Count 6.8, Red Blood Count 4.51, Hemoglobin 15.6, Hematocrit 46.7, Mean Corpuscular Volume 104H, Mean Corpuscular Hemoglobin 34.5H, Mean Corpuscular Hemoglobin Concent 33.3, Red Cell Distribution Width 11.5L, Platelet Count 265, Mean Platelet Volume 7.1, Neutrophils (%) (Auto) 51.0, Lymphocytes (%) (Auto) 40.5, Monocytes (%) (Auto) 7.2, Eosinophils (%) (Auto) 0.5, Basophils (%) (Auto) 0.8, Sodium Level 137, Potassium Level 2.9L, Chloride Level 94L, Carbon Dioxide Level 22, Anion Gap 21H, Blood Urea Nitrogen 12, Creatinine 1.4H, Estimat Glomerular Filtration Rate 40.9, Glucose Level 121H, Uric Acid 8.7H, Calcium Level 6.7L, Total Bilirubin 0.6, Aspartate Amino Transf (AST/SGOT) 167H, Alanine Aminotransferase (ALT/SGPT) 149H, Alkaline Phosphatase 77, Total Creatine Kinase 172, Troponin I 0.000, Total Protein 8.4H, Albumin 3.8 , Globulin 4.6, Albumin/Globulin Ratio 0.8L, Lipase 444H 12/23/19 16:50: Urine Color Pale yellow, Urine Appearance Slightly cloudy, Urine pH 6, Urine Specific [place] 1.010, Urine Protein 2+H, Urine Glucose (UA) Negative, Urine Ketones Negative, Urine Blood 5+H, Urine Nitrite Negative, Urine Bilirubin Negative, Urine Urobilinogen Normal, Urine Leukocyte Esterase 3+H, Urine RBC TntcH, Urine WBC TntcH, Urine Squamous Epithelial Cells Few, Urine Bacteria ManyH, Urine Eosinophils None seen, Urine Osmolality 190L, Urine Random Creatinine [Pending], Urine Random Microalbumin [Pending], Urine Random Sodium < 20L, Urine Microalbumin/Creatinine Ratio [Pending] 12/23/19 17:00: Urine Color Pale yellow, Urine Appearance Slightly cloudy, Urine pH 6, Urine Specific [place] 1.005, Urine Protein 2+H, Urine Glucose (UA) Negative, Urine Ketones Negative, Urine Blood 4+H, Urine Nitrite Negative, Urine Bilirubin Negative, Urine Urobilinogen Normal, Urine Leukocyte Esterase 3+H, Urine RBC 40- 60H, Urine WBC 20-30H, Urine Squamous Epithelial Cells ManyH, Urine Bacteria ModerateH, Urine HCG, Qualitative Negative 12/24/19 05:35: White Blood Count 6.0, Red Blood Count 3.96L, Hemoglobin 13.9, Hematocrit 39.6, Mean Corpuscular Volume 100H, Mean Corpuscular Hemoglobin 35.1H, Mean Corpuscular Hemoglobin Concent 35.1, Red Cell Distribution Width 11.1L, Platelet Count 198, Mean Platelet Volume 6.2L, Neutrophils (%) (Auto) 54.2, Lymphocytes (%) (Auto) 37.2, Monocytes (%) (Auto) 6.8, Eosinophils (%) (Auto) 1.1, Basophils (%) (Auto) 0.8, Sodium Level 141, Potassium Level 3.6, Chloride Level 102, Carbon Dioxide Level 25, Anion Gap 14, Blood Urea Nitrogen 12, Creatinine 1.4H, Estimat Glomerular Filtration Rate 40.9, Glucose Level 103, Calcium Level 5.8*L, Total Bilirubin 0.9, Aspartate Amino Transf (AST/SGOT) 117H , Alanine Aminotransferase (ALT/SGPT) 123H, Alkaline Phosphatase 63, Total Protein 7.8, Albumin 3.3L, Globulin 4.5, Albumin/Globulin Ratio 0.7L, Lipase 349 , Activated Partial Thromboplast Time 28, Amylase Level 28 Height (Feet): 5 Height (Inches): 4.00 Weight (Pounds): 190 General Appearance: alert EENT: normal ENT inspection Neck: supple Cardiovascular: normal rate Respiratory/Chest: decreased breath sounds Abdomen: normal bowel sounds, non tender, soft Extremities: non-tender Wai Loya MD Dec 24, 2019 14:58
[2019-12-24] MEDS: Piperacillin/Tazobactam 3.375 GM in NS 110 ML IVPB SCH ×2 (15:08→21:01)
--- NOTE | 2019-12-24 15:42 | Consultation ---
History of Present Illness General Date patient seen: Dec 24, 2019 Chief Complaint: Flu Like Symptoms Present Illness HPI 44 y/o F with hx of Hypertension, hypoparathyroidism, s/p Cholecystectomy presented to ED on 12/23 with 2 days of myalgias, cough, vomiting, diarrhea. Vomiting is bilious OF note, patient seen in ED few days ago with a respiratory illness after reporting several days of productive cough, fever, fatigue and myalgias Denied hematochezia, hematemesis, abd pain Allergies: Coded Allergies: SULFA (SULFONAMIDE ANTIBIOTICS) (Verified Allergy, Unknown, 02/24/19) Medication History Scheduled Albuterol Sulfate* (Albuterol Sulfate Mdi*), 2 PUFF INH Q6H Calcitriol (Calcitriol), 0.5 MCG ORAL BID, (Reported) Cephalexin* (Keflex*), 500 MG ORAL EVERY 6 HOURS Ibuprofen (Ibu), 800 MG PO TID Losartan Potassium* (Losartan Potassium*), 25 MG ORAL DAILY, (Reported) Magnesium Oxide (Magnesium Oxide), 800 MG ORAL DAILY Potassium Chloride* (K-Dur*), 20 MEQ ORAL DAILY Scheduled PRN Acetaminophen With Codeine (T#3) (Tylenol #3 Tab*), 1 TAB ORAL Q12 PRN for For Pain Calcium Carbonate (Calcium), 500 MG ORAL THREE TIMES A DAY PRN for HEARTBURN, ( Reported) Guaifenesin/Dextromethorphan* (Guaifenesin Dm Syrup*), 5 ML ORAL Q6H PRN for FOR COUGH Patient History Healthcare decision maker Resuscitation status Full Code Advanced Directive on File Patient History Narrative Pmhx: as above Shx: Denies drug, alcohol or tobacco use Fhx: non contributory Review of Systems All Other Systems: negative except mentioned in HPI Physical Exam Physical Exam Narrative General Appearance: WD/WN HEENT: normocephalic Respiratory/Chest: chest wall non-tender, no respiratory distress Cardiovascular: normal peripheral pulses, regular rhythm Abdomen: normal bowel sounds, soft, non tender Extremities: no cyanosis, no clubbing Skin: no lesion Last 24 Hour Vital Signs Date Time Temp Pulse Resp B/P (MAP) Pulse Ox O2 Delivery O2 Flow Rate FiO2 12/24/19 12:27 93 18 95 Room Air 21 12/24/19 12:25 92 18 95 Room Air 21 12/24/19 12:00 98.4 98 19 123/73 (90) 99 12/24/19 09:00 Room Air 12/24/19 08:26 129/72 12/24/19 08:00 98.0 94 18 129/92 (104) 97 12/24/19 07:58 96 18 97 Room Air 21 12/24/19 07:57 95 18 96 Room Air 21 12/24/19 04:00 98.0 99 20 122/81 (95) 97 12/24/19 00:06 98.6 100 17 127/89 (102) 97 12/23/19 23:04 Room Air 12/23/19 22:10 98.9 98 14 126/89 98 Room Air 12/23/19 22:00 Room Air 21 12/23/19 22:00 Room Air 21 12/23/19 21:30 98.9 98 14 126/89 98 Room Air 12/23/19 20:36 98.9 111 14 127/89 98 Room Air 12/23/19 19:13 98.9 100 15 120/82 98 Room Air 12/23/19 16:18 99.1 100 16 95/57 96 Room Air 12/23/19 16:18 100 16 Room Air Intake and Output 12/23/19 12/24/19 19:00 07:00 Intake Total 2000 ml 705 ml Balance 2000 ml 705 ml Intake Oral 0 ml 30 ml IV Total 2000 ml 675 ml # Voids 3 # Bowel Movements 1 Laboratory Tests Test 12/23/19 15:40 12/23/19 16:50 12/23/19 17:00 12/24/19 05:35 White Blood Count 6.8 K/UL (4.8-10.8) 6.0 K/UL (4.8-10.8) Red Blood Count 4.51 M/UL (4.20-5.40) 3.96 M/UL (4.20-5.40) L Hemoglobin 15.6 G/DL (12.0-16.0) 13.9 G/DL (12.0-16.0) Hematocrit 46.7 % (37.0-47.0) 39.6 % (37.0-47.0) Mean Corpuscular Volume 104 FL (80-99) H 100 FL (80-99) H Mean Corpuscular Hemoglobin 34.5 PG (27.0-31.0) H 35.1 PG (27.0-31.0) H Mean Corpuscular Hemoglobin Concent 33.3 G/DL (32.0-36.0) 35.1 G/DL (32.0-36.0) Red Cell Distribution Width 11.5 % (11.6-14.8) L 11.1 % (11.6-14.8) L Platelet Count 265 K/UL (150-450) 198 K/UL (150-450) Mean Platelet Volume 7.1 FL (6.5-10.1) 6.2 FL (6.5-10.1) L Neutrophils (%) (Auto) 51.0 % (45.0-75.0) 54.2 % (45.0-75.0) Lymphocytes (%) (Auto) 40.5 % (20.0-45.0) 37.2 % (20.0-45.0) Monocytes (%) (Auto) 7.2 % (1.0-10.0) 6.8 % (1.0-10.0) Eosinophils (%) (Auto) 0.5 % (0.0-3.0) 1.1 % (0.0-3.0) Basophils (%) (Auto) 0.8 % (0.0-2.0) 0.8 % (0.0-2.0) Sodium Level 137 MMOL/L (136-145) 141 MMOL/L (136-145) Potassium Level 2.9 MMOL/L (3.5-5.1) L 3.6 MMOL/L (3.5-5.1) Chloride Level 94 MMOL/L (98-107) L 102 MMOL/L (98-107) Carbon Dioxide Level 22 MMOL/L (21-32) 25 MMOL/L (21-32) Anion Gap 21 mmol/L (5-15) H 14 mmol/L (5-15) Blood Urea Nitrogen 12 mg/dL (7-18) 12 mg/dL (7-18) Creatinine 1.4 MG/DL (0.55-1.30) H 1.4 MG/DL (0.55-1.30) H Estimat Glomerular Filtration Rate 40.9 mL/min (>60) 40.9 mL/min (>60) Glucose Level 121 MG/DL (74-106) H 103 MG/DL (74-106) Uric Acid 8.7 MG/DL (2.6-7.2) H Calcium Level 6.7 MG/DL (8.5-10.1) L 5.8 MG/DL (8.5-10.1) *L Total Bilirubin 0.6 MG/DL (0.2-1.0) 0.9 MG/DL (0.2-1.0) Aspartate Amino Transf (AST/SGOT) 167 U/L (15-37) H 117 U/L (15-37) H Alanine Aminotransferase (ALT/SGPT) 149 U/L (12-78) H 123 U/L (12-78) H Alkaline Phosphatase 77 U/L (46-116) 63 U/L (46-116) Total Creatine Kinase 172 U/L (26-308) Troponin I 0.000 ng/mL (0.000-0.056) Total Protein 8.4 G/DL (6.4-8.2) H 7.8 G/DL (6.4-8.2) Albumin 3.8 G/DL (3.4-5.0) 3.3 G/DL (3.4-5.0) L Globulin 4.6 g/dL 4.5 g/dL Albumin/Globulin Ratio 0.8 (1.0-2.7) L 0.7 (1.0-2.7) L Lipase 444 U/L (73-393) H 349 U/L (73-393) Urine Color Pale yellow Pale yellow Urine Appearance Slightly cloudy Slightly cloudy Urine pH 6 (4.5-8.0) 6 (4.5-8.0) Urine Specific [place] 1.010 (1.005-1.035) 1.005 (1.005-1.035) Urine Protein 2+ (NEGATIVE) H 2+ (NEGATIVE) H Urine Glucose (UA) Negative (NEGATIVE) Negative (NEGATIVE) Urine Ketones Negative (NEGATIVE) Negative (NEGATIVE) Urine Blood 5+ (NEGATIVE) H 4+ (NEGATIVE) H Urine Nitrite Negative (NEGATIVE) Negative (NEGATIVE) Urine Bilirubin Negative (NEGATIVE) Negative (NEGATIVE) Urine Urobilinogen Normal MG/DL (0.0-1.0) Normal MG/DL (0.0-1.0) Urine Leukocyte Esterase 3+ (NEGATIVE) H 3+ (NEGATIVE) H Urine RBC Tntc /HPF (0 - 2) H 40-60 /HPF (0 - 2) H Urine WBC Tntc /HPF (0 - 2) H 20-30 /HPF (0 - 2) H Urine Squamous Epithelial Cells Few /LPF (NONE/OCC) Many /LPF (NONE/OCC) H Urine Bacteria Many /HPF (NONE) H Moderate /HPF (NONE) H Urine Eosinophils None seen (NONE SEEN) Urine Osmolality 190 mOsm/kg (429-449) L Urine Random Creatinine Pending Urine Random Microalbumin Pending Urine Random Sodium < 20 mmol/L (20-110) L Urine Microalbumin/Creatinine Ratio Pending Urine HCG, Qualitative Negative (NEGATIVE) Activated Partial Thromboplast Time 28 SEC (23-33) Amylase Level 28 U/L (25-115) Microbiology Date/Time Source Procedure Growth Status 12/23/19 17:00 Urine,Clean Catch Urine Culture - Preliminary Resulted Height (Feet): 5 Height (Inches): 4.00 Weight (Pounds): 190 Medications Current Medications Medications (Trade) Dose Ordered Sig/Sung Route PRN Reason Start Time Stop Time Status Last Admin Dose Admin Acetaminophen (Tylenol) 650 mg Q4H PRN ORAL fever 12/23/19 21:30 01/22/20 21:29 Albuterol Sulfate (Proventil MDI) 2 puff Q6HRT INH 12/24/19 07:00 01/22/20 21:29 12/24/19 12:25 Alprazolam (Xanax) 1 mg Q6H PRN ORAL For Anxiety 12/23/19 23:15 12/30/19 23:14 12/23/19 23:27 Calcitriol (Rocaltrol) 0.5 mcg BID ORAL 12/24/19 18:00 01/23/20 17:59 Dextrose (Dextrose 50%) 25 ml Q30M PRN IV Hypoglycemia 12/23/19 21:30 01/22/20 21:29 Dextrose (Dextrose 50%) 50 ml Q30M PRN IV Hypoglycemia 12/23/19 21:30 01/22/20 21:29 Dextrose/Sodium Chloride 1,000 ml @ 75 mls/hr [id number] IV 12/23/19 22:00 01/22/20 21:59 12/24/19 12:15 Diphenhydramine HCl (Benadryl) 25 mg Q6H PRN ORAL Itching/Pruritis 12/23/19 21:30 01/22/20 21:29 Heparin Sodium (Porcine) (Heparin 5000 units/ml) 5,000 units EVERY 12 HOURS SUBQ 12/24/19 09:00 01/23/20 08:59 12/24/19 08:34 Losartan Potassium (Cozaar) 25 mg DAILY ORAL 12/24/19 09:00 01/23/20 08:59 12/24/19 08:26 Morphine Sulfate (Morphine Sulfate) 2 mg Q4H PRN IVP moderate to severe pain 12/23/19 23:00 12/30/19 22:59 12/24/19 12:10 Nitroglycerin (Ntg) 0.4 mg Q5M X 3 DOSES PRN SL Prn Chest Pain 12/23/19 21:30 01/22/20 21:29 Ondansetron HCl (Zofran) 4 mg Q6H PRN IVP Nausea & Vomiting 12/23/19 21:30 01/22/20 21:29 12/24/19 12:09 Pantoprazole (Protonix) 40 mg DAILY IVP 12/24/19 09:00 01/23/20 08:59 12/24/19 08:26 Piperacillin Sod/ Tazobactam Sod 3.375 gm/Sodium Chloride 110 ml @ 27.5 mls/hr Q8HR IVPB 12/24/19 14:30 12/31/19 14:29 12/24/19 15:08 Polyethylene Glycol (Miralax) 17 gm HSPRN PRN ORAL Constipation 12/23/19 21:30 01/22/20 21:29 Temazepam (Restoril) 15 mg HSPRN PRN ORAL Insomnia 12/23/19 21:30 12/30/19 21:29 12/23/19 23:27 Assessment/Plan Assessment/Plan: Abx: Zosyn 12/24- Ceftriaxone x1 12/23 Assessment: Pancreatitis -lipase 400s -Abd US: p UTI -u/a wbc tntc, nit neg, leuk +3; ucx p Afebrile NO leukocytosis -CXR: no acute disease Elevated LFTs YAKOV -Renal US: Bilateral nonobstructive nephrolithiasis. 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 Bilateral renal cysts. Hypertension hypoparathyroidism s/p Cholecystectomy Plan: -Continue empiric ZOsyn #1 pending cultures -f/u cx -Monitor CBC/CMP, temperatures -f/u abd US -If T >101, obtain 2 sets of blood cultures Thank you for this consultation. Will continue to follow along with you. Discussed with Zita Danielle M.D. Dec 24, 2019 15:42
[2019-12-24 16:00] VITALS: BP 134/90
--- NOTE | 2019-12-24 16:16 | Diagnostic Imaging Report ---
Indication: Abdominal pain Technique: Grayscale and duplex Doppler imaging of the abdomen performed. Comparison: None Findings: The liver is echogenic. Doppler interrogation of the main portal vein shows patency with hepatopedal, monophasic flow. There is no biliary ductal dilatation identified. Gallbladder is absent. CBD is 4.8 mm in diameter. The pancreas, aorta and IVC are not well seen. Both kidneys demonstrate medullary echogenicity indicative of medullary nephrocalcinosis. A few cysts are noted in the left kidney. Some shadowing foci demonstrated as well likely representing nonobstructive stones. There is no hydronephrosis. IMPRESSION: Medullary nephrocalcinosis and nonobstructive stones. Status post cholecystectomy. Fatty liver
--- NOTE | 2019-12-24 16:53 | History & Physical ---
History and Physical History & Physicial Karl Houston MD Dec 24, 2019 16:53
[2019-12-24] MEDS ORDERED: Calcitriol 0.5mcg Cap ORAL SCH (18:00)
--- NOTE | 2019-12-24 19:10 | NUR ---
HAND-OFF: Report given to Suzi CHAVIS.
--- NOTE | 2019-12-24 19:35 | NUR ---
NURSE NOTES: Report received from Quentin CHAVIS. Pt is AOX4 and verbally responsive. On room air, no acute distress noted. Denies pain at this time. No c/o N/V at this time. IV patent and running IV fluid. Bed in low and locked position. call light within reach. Will continue to monitor the pt.
[2019-12-24 19:41] VITALS: BP 131/86
[2019-12-24] MEDS: ALPRAZolam 0.5mg tab ORAL PRN (20:50)
--- NOTE | 2019-12-24 21:45 | History and Physical Report ---
DATE OF ADMISSION: 12/23/2019 CHIEF COMPLAINT: Flank pain, flu-like symptoms. HISTORY OF PRESENT ILLNESS: This a 44-year-old female with past medical history significant for hypertension, hypoparathyroidism, who presented to the emergency department complaining about the malaise, fatigue, cough, vomiting, diarrhea and the patient denies any fever, chills, however, recently was admitted to the hospital due to the upper respiratory infection and she has been having nausea, vomiting, diarrhea for past two days. Denies any loss of consciousness. Denies any bloody stool. Shortly after initial evaluation in the emergency department, the patient was admitted to the hospital with upper respiratory infection, possible acute gastroenteritis as well as UTI. PAST MEDICAL HISTORY/PAST SURGICAL HISTORY: As above. History of hypoparathyroidism as well as hypertension, cholecystectomy. MEDICATIONS: Medications at home, please refer to medication reconciliation. ALLERGIES: To sulfa medication. SOCIAL HISTORY: Denies any smoking, alcohol, or drugs. FAMILY HISTORY: Significant for father with kidney disease, heart disease, and diabetes. REVIEW OF SYSTEMS: Mostly as above. Denies any dysuria, frequency, hematuria. Complained of nausea, vomiting, diarrhea. Denies any hemoptysis or hematochezia, complained about flank pain. Denies any loss of consciousness. Denies any suicidal or homicidal ideation. PHYSICAL EXAMINATION: VITAL SIGNS: On admission, temperature 99.1, pulse of 119, respirations 16, and blood pressure 91/55. GENERAL: The patient is awake, responsive, in no acute distress. HEAD AND NECK: Pupils are equal and reactive to light. Anicteric. Neck was supple. No JVD. LUNGS: Clear. No wheezing or rales. HEART: S1, S2. Regular rhythm. No gallops. ABDOMEN: Soft, nondistended, and nontender. Positive bowel sounds. Bilateral flank tenderness on deep palpation. No rebound tenderness. No fluid shift. EXTREMITIES: No cyanosis, clubbing, or edema. NEUROLOGIC: Cranial nerves II through XII are grossly intact. Motor is 5/5 in all extremities. Gait is intact. RECTAL/GENITOURINARY: Refused and deferred. PSYCHIATRIC: Mood and affect is intact. LABORATORY DATA: Laboratory on admission from the emergency department, WBC of 6.8, hemoglobin 15, hematocrit 46, platelet is 265,000. Sodium 137, potassium 2.9, chloride 94, bicarb 22, BUN 12, creatinine 1.4, glucose was 121, uric acid is 8.7, calcium is 6.7. AST of 167, ALT of 149. First troponin 0.00. Lipase is 444. UA is +2 protein, +5 blood, +3 leukocyte tainted, RBC tainted, wbc's many bacteria. PTT of 28. The patient had a chest x-ray, no acute process. Ultrasound of the abdomen was noted, medullary nephrocalcinosis with nonobstructive stone, status post cholecystectomy. ASSESSMENT: 1. Upper respiratory, most likely secondary to viral syndrome. 2. Abnormal liver function, possible due to pancreatitis. 3. Hypertension. 4. Hypoparathyroidism. 5. Acute kidney injury on chronic renal insufficiency. 6. Dehydration. 7. Hypokalemia. 8. Hypocalcemia. PLAN: Admit the patient to medical floor. We will follow up with the laboratory as well as culture. Broad-spectrum antibiotic with Zosyn. We will follow up with DVT prophylaxis, heparin subcutaneous. Code status is Full Code. Dr. Loya consultation from Gastroenterology, Dr. Mcintosh from Infectious Disease, Dr. Oleary from Pulmonary Critical Care, and we will monitor liver function . Karl Houston M.D. DR: FREDDY JOB#: [id number] CC:
[2019-12-25] VITALS: BP 146/80
[2019-12-25] MEDS: Albuterol 90mcg Inhaler 8gm INH SCH ×4 (01:41→20:28)
[2019-12-25] MEDS: D5 1/2NS 1,000 ML IV SCH ×2 (02:46→04:08)
[2019-12-25 04:00] VITALS: BP 140/82
[2019-12-25] MEDS: Morphine Sulfate 2mg/ml Inj(IV/IM USE ONLY) IVP PRN ×5 (04:07→21:37)
[2019-12-25] MEDS: Piperacillin/Tazobactam 3.375 GM in NS 110 ML IVPB SCH (05:01)
--- NOTE | 2019-12-25 06:03 | NUR ---
NURSE NOTES: No c/o nausea,vomiting or diarrhea during the shift.
[2019-12-25 07:19] LABS: ALANINE AMINOTRANSFERASE 171 U/L (12-78); ALBUMIN 3.2 G/DL (3.4-5.0); ALBUMIN/GLOBULIN RATIO 0.7 (1.0-2.7); ALKALINE PHOSPHATASE 58 U/L (46-116); ANION GAP 12 mmol/L (5-15); ASPARTATE AMINO TRANSFERASE 248 U/L (15-37); BASOPHILS % (AUTO) 0.8 % (0.0-2.0); BILIRUBIN,TOTAL 0.8 MG/DL (0.2-1.0); BLOOD UREA NITROGEN 9 mg/dL (7-18); CARBON DIOXIDE 27 MMOL/L (21-32); CHLORIDE 104 MMOL/L (98-107); CREATININE 1.2 MG/DL (0.55-1.30); EOSINOPHILS % (AUTO) 1.8 % (0.0-3.0); HEMATOCRIT 37.2 % (37.0-47.0); HEMOGLOBIN 13.4 G/DL (12.0-16.0); LYMPHOCYTES % (AUTO) 27.2 % (20.0-45.0); MEAN CORPUSCULAR VOLUME 100 FL (80-99); MONOCYTES % (AUTO) 6.8 % (1.0-10.0); NEUTROPHILS % (AUTO) 63.5 % (45.0-75.0); PHOSPHORUS 5.1 MG/DL (2.5-4.9); PLATELET COUNT 147 K/UL (150-450); POTASSIUM 3.4 MMOL/L (3.5-5.1); RED BLOOD COUNT 3.73 M/UL (4.20-5.40); RED CELL DISTRIBUTION WIDTH 11.3 % (11.6-14.8); SODIUM 143 MMOL/L (136-145); WHITE BLOOD COUNT 4.8 K/UL (4.8-10.8)
--- NOTE | 2019-12-25 07:32 | NUR ---
HAND-OFF: Report given to PARTHA Jasmine.
--- NOTE | 2019-12-25 07:32 | NUR ---
NURSE NOTES: Received report from PARTHA Kaur. Patient in bed, sleeping. On room air, no signs of distress or labored breathing. IV intact, patent, and infusing IV fluids. Bed in lowest position with call light in reach. Will continue with plan of care. Addendum: 12/25/19 at 0801 by Mitali Doshi RN KATHRINE CHAVIS. Received report from PARTHA Archer.
[2019-12-25 08:03] LABS: CALCIUM 5.6 MG/DL (8.5-10.1)
[2019-12-25 08:30] VITALS: BP 139/94
[2019-12-25] MEDS: Heparin 5000 units/ml inj SUBQ SCH ×2 (09:00→21:29)
[2019-12-25] MEDS: Pantoprazole Inj IVP SCH (09:10)
[2019-12-25] MEDS: Losartan 25mg tab ORAL SCH (09:11)
[2019-12-25] MEDS: Calcitriol 0.5mcg Cap ORAL SCH ×2 (09:11→17:26)
--- NOTE | 2019-12-25 10:15 | Infectious Diseases Prog Note ---
Assessment/Plan Assessment/Plan Assessment: Pancreatitis -lipase 400s Flu-like symptoms -influenza sc neg -CXR: no acute disease UTI (+dysuria) -u/a wbc tntc, nit neg, leuk +3; ucx >100k Staph sp Afebrile NO leukocytosis Elevated LFTs -Abd US: Medullary nephrocalcinosis and nonobstructive stones. Status post cholecystectomy.Fatty liver -hep panel p YAKOV, improving -Renal US: Bilateral nonobstructive nephrolithiasis. 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 Bilateral renal cysts. Hypertension hypoparathyroidism s/p Cholecystectomy Plan: -D/c empiric ZOsyn #2 pending cultures -Start empiric IV vancomycin -12/23 SP Ceftriaxone x1 -f/u cx -Monitor CBC/CMP, temperatures -Bcx x2 -f/u hep panel Thank you for this consultation. Will continue to follow along with you. Discussed with RN Subjective Allergies: Coded Allergies: SULFA (SULFONAMIDE ANTIBIOTICS) (Verified Allergy, Unknown, 02/24/19) Subjective afebrile Cr improving elevated LFTs Objective Vital Signs Last 24 Hour Vital Signs Date Time Temp Pulse Resp B/P (MAP) Pulse Ox O2 Delivery O2 Flow Rate FiO2 12/25/19 09:11 139/94 12/25/19 08:30 98.6 94 18 139/94 (109) 99 12/25/19 07:50 72 16 96 Room Air 21 12/25/19 07:50 70 16 96 Room Air 21 12/25/19 04:00 98.8 102 18 140/82 (101) 96 12/25/19 01:43 99 18 96 Room Air 21 12/25/19 01:41 98 16 95 Room Air 21 12/25/19 00:00 98.0 99 20 146/80 (102) 96 12/24/19 21:50 94 22 97 Room Air 21 12/24/19 21:47 91 22 93 Room Air 21 12/24/19 21:00 Room Air 12/24/19 19:41 98.8 95 18 131/86 (101) 97 12/24/19 16:00 98.2 93 18 134/90 (105) 97 12/24/19 12:27 93 18 95 Room Air 21 12/24/19 12:25 92 18 95 Room Air 21 1/31/20 12:00 98.4 98 19 123/73 (90) 99 Height (Feet): 5 Height (Inches): 4.00 Weight (Pounds): 190 Objective General Appearance: WD/WN HEENT: normocephalic Respiratory/Chest: chest wall non-tender, no respiratory distress Cardiovascular: normal peripheral pulses, regular rhythm Abdomen: normal bowel sounds, soft, non tender Extremities: no cyanosis, no clubbing Skin: no lesion Microbiology Date/Time Source Procedure Growth Status 12/24/19 19:00 Nasopharynx - Final Complete 12/24/19 19:00 Nasopharynx - Final Complete 12/24/19 16:00 Stool Clostridium difficile Toxin Assay - Final Complete 12/23/19 17:00 Urine,Clean Catch Urine Culture - Preliminary Staphylococcus Species Resulted 12/23/19 16:50 Urine,Clean Catch Urine Culture - Preliminary Staphylococcus Species Resulted Laboratory Tests Test 12/25/19 05:30 White Blood Count 4.8 K/UL (4.8-10.8) Red Blood Count 3.73 M/UL (4.20-5.40) L Hemoglobin 13.4 G/DL (12.0-16.0) Hematocrit 37.2 % (37.0-47.0) Mean Corpuscular Volume 100 FL (80-99) H Mean Corpuscular Hemoglobin 35.8 PG (27.0-31.0) H Mean Corpuscular Hemoglobin Concent 35.9 G/DL (32.0-36.0) Red Cell Distribution Width 11.3 % (11.6-14.8) L Platelet Count 147 K/UL (150-450) L Mean Platelet Volume 6.2 FL (6.5-10.1) L Neutrophils (%) (Auto) 63.5 % (45.0-75.0) Lymphocytes (%) (Auto) 27.2 % (20.0-45.0) Monocytes (%) (Auto) 6.8 % (1.0-10.0) Eosinophils (%) (Auto) 1.8 % (0.0-3.0) Basophils (%) (Auto) 0.8 % (0.0-2.0) Erythrocyte Sedimentation Rate 55 MM/HR (0-20) H Sodium Level 143 MMOL/L (136-145) Potassium Level 3.4 MMOL/L (3.5-5.1) L Chloride Level 104 MMOL/L (98-107) Carbon Dioxide Level 27 MMOL/L (21-32) Anion Gap 12 mmol/L (5-15) Blood Urea Nitrogen 9 mg/dL (7-18) Creatinine 1.2 MG/DL (0.55-1.30) Estimat Glomerular Filtration Rate 48.8 mL/min (>60) Glucose Level 97 MG/DL (74-106) Calcium Level 5.6 MG/DL (8.5-10.1) *L Phosphorus Level 5.1 MG/DL (2.5-4.9) H Magnesium Level 1.3 MG/DL (1.8-2.4) L Total Bilirubin 0.8 MG/DL (0.2-1.0) Aspartate Amino Transf (AST/SGOT) 248 U/L (15-37) H Alanine Aminotransferase (ALT/SGPT) 171 U/L (12-78) H Alkaline Phosphatase 58 U/L (46-116) C-Reactive Protein, Quantitative 2.4 mg/dL (0.00-0.90) H Total Protein 7.7 G/DL (6.4-8.2) Albumin 3.2 G/DL (3.4-5.0) L Globulin 4.5 g/dL Albumin/Globulin Ratio 0.7 (1.0-2.7) L Hepatitis A IgM Antibody Pending Hepatitis B Surface Antigen Pending Hepatitis B Core IgM Antibody Pending Hepatitis C Antibody Pending Current Medications Medications (Trade) Dose Ordered Sig/Sung Route PRN Reason Start Time Stop Time Status Last Admin Dose Admin Acetaminophen (Tylenol) 650 mg Q4H PRN ORAL fever 12/23/19 21:30 01/22/20 21:29 Albuterol Sulfate (Proventil MDI) 2 puff Q6HRT INH 12/24/19 07:00 01/22/20 21:29 12/25/19 08:09 Alprazolam (Xanax) 1 mg Q6H PRN ORAL For Anxiety 12/23/19 23:15 12/30/19 23:14 12/24/19 20:50 Calcitriol (Rocaltrol) 1 mcg BID ORAL 12/25/19 09:00 01/23/20 17:59 12/25/19 09:11 Dextrose (Dextrose 50%) 25 ml Q30M PRN IV Hypoglycemia 12/23/19 21:30 01/22/20 21:29 Dextrose (Dextrose 50%) 50 ml Q30M PRN IV Hypoglycemia 12/23/19 21:30 01/22/20 21:29 Dextrose/Sodium Chloride 1,000 ml @ 75 mls/hr [id number] IV 12/23/19 22:00 01/22/20 21:59 12/25/19 04:08 Diphenhydramine HCl (Benadryl) 25 mg Q6H PRN ORAL Itching/Pruritis 12/23/19 21:30 01/22/20 21:29 Heparin Sodium (Porcine) (Heparin 5000 units/ml) 5,000 units EVERY 12 HOURS SUBQ 12/24/19 09:00 01/23/20 08:59 12/24/19 20:52 Losartan Potassium (Cozaar) 25 mg DAILY ORAL 12/24/19 09:00 01/23/20 08:59 12/25/19 09:11 Morphine Sulfate (Morphine Sulfate) 2 mg Q4H PRN IVP moderate to severe pain 12/23/19 23:00 12/30/19 22:59 12/25/19 09:22 Nitroglycerin (Ntg) 0.4 mg Q5M X 3 DOSES PRN SL Prn Chest Pain 12/23/19 21:30 01/22/20 21:29 Ondansetron HCl (Zofran) 4 mg Q6H PRN IVP Nausea & Vomiting 12/23/19 21:30 01/22/20 21:29 12/24/19 19:03 Pantoprazole (Protonix) 40 mg DAILY IVP 12/24/19 09:00 01/23/20 08:59 12/25/19 09:10 Piperacillin Sod/ Tazobactam Sod 3.375 gm/Sodium Chloride 110 ml @ 27.5 mls/hr Q8HR IVPB 12/24/19 14:30 12/31/19 14:29 12/25/19 05:01 Polyethylene Glycol (Miralax) 17 gm HSPRN PRN ORAL Constipation 12/23/19 21:30 01/22/20 21:29 Temazepam (Restoril) 15 mg HSPRN PRN ORAL Insomnia 12/23/19 21:30 12/30/19 21:29 12/24/19 20:55 Zita Mcintosh M.D. Dec 25, 2019 10:15
[2019-12-25] MEDS: Calcium Carbonate 650mg Tab ORAL SCH (10:59)
[2019-12-25 12:00] VITALS: BP 139/95
[2019-12-25] MEDS: Vancomycin 750 MG in NS 275 ML IVPB SCH ×2 (13:17→23:46)
--- NOTE | 2019-12-25 15:22 | Internal Med Progress Note ---
Subjective Date of Service: Dec 25, 2019 Physician Name MayFidel Attending Physician Karl Houston MD Current Medications Medications (Trade) Dose Ordered Sig/Sung Route PRN Reason Start Time Stop Time Status Last Admin Dose Admin Acetaminophen (Tylenol) 650 mg Q4H PRN ORAL fever 12/23/19 21:30 01/22/20 21:29 Albuterol Sulfate (Proventil MDI) 2 puff Q6HRT INH 12/24/19 07:00 01/22/20 21:29 12/25/19 12:03 Alprazolam (Xanax) 1 mg Q6H PRN ORAL For Anxiety 12/23/19 23:15 12/30/19 23:14 12/24/19 20:50 Calcitriol (Rocaltrol) 1 mcg BID ORAL 12/25/19 09:00 01/23/20 17:59 12/25/19 09:11 Calcium Carbonate (Calcium Carbonate) 1,300 mg DAILY ORAL 12/25/19 10:15 01/24/20 10:14 12/25/19 10:59 Dextrose (Dextrose 50%) 25 ml Q30M PRN IV Hypoglycemia 12/23/19 21:30 01/22/20 21:29 Dextrose (Dextrose 50%) 50 ml Q30M PRN IV Hypoglycemia 12/23/19 21:30 01/22/20 21:29 Dextrose/Sodium Chloride 1,000 ml @ 75 mls/hr [id number] IV 12/23/19 22:00 01/22/20 21:59 12/25/19 04:08 Diphenhydramine HCl (Benadryl) 25 mg Q6H PRN ORAL Itching/Pruritis 12/23/19 21:30 01/22/20 21:29 Heparin Sodium (Porcine) (Heparin 5000 units/ml) 5,000 units EVERY 12 HOURS SUBQ 12/24/19 09:00 01/23/20 08:59 12/24/19 20:52 Losartan Potassium (Cozaar) 25 mg DAILY ORAL 12/24/19 09:00 01/23/20 08:59 12/25/19 09:11 Morphine Sulfate (Morphine Sulfate) 2 mg Q4H PRN IVP moderate to severe pain 12/23/19 23:00 12/30/19 22:59 12/25/19 13:30 Nitroglycerin (Ntg) 0.4 mg Q5M X 3 DOSES PRN SL Prn Chest Pain 12/23/19 21:30 01/22/20 21:29 Ondansetron HCl (Zofran) 4 mg Q6H PRN IVP Nausea & Vomiting 12/23/19 21:30 01/22/20 21:29 12/24/19 19:03 Pantoprazole (Protonix) 40 mg DAILY IVP 12/24/19 09:00 01/23/20 08:59 12/25/19 09:10 Polyethylene Glycol (Miralax) 17 gm HSPRN PRN ORAL Constipation 12/23/19 21:30 01/22/20 21:29 Temazepam (Restoril) 15 mg HSPRN PRN ORAL Insomnia 12/23/19 21:30 12/30/19 21:29 12/24/19 20:55 Vancomycin HCl (Vanco rx to dose) 1 ea DAILY PRN MISC Per rx protocol 12/25/19 10:15 01/24/20 10:14 Vancomycin HCl 750 mg/Sodium Chloride 275 ml @ 183.333 mls/hr Q12H IVPB 12/25/19 12:00 12/30/19 11:59 12/25/19 13:17 Allergies: Coded Allergies: SULFA (SULFONAMIDE ANTIBIOTICS) (Verified Allergy, Unknown, 02/24/19) ROS Limited/Unobtainable: No Constitutional: Reports: no symptoms HEENT: Reports: no symptoms Cardiovascular: Reports: no symptoms Respiratory: Reports: cough Gastrointestinal/Abdominal: Reports: abdominal pain, nausea, vomiting Genitourinary: Reports: no symptoms Neurologic/Psychiatric: Reports: no symptoms Subjective 44 YO F admitted with nausea, vomiting and diarrhea. Now pancreatitis and UTI. Cover for Int Tian-Dr Houston Objective Last Vital Signs Date Time Temp Pulse Resp B/P (MAP) Pulse Ox O2 Delivery O2 Flow Rate FiO2 12/25/19 12:04 72 18 99 Room Air 21 12/25/19 12:00 97.9 139/95 (110) Laboratory Tests Test 12/25/19 05:30 White Blood Count 4.8 K/UL (4.8-10.8) Red Blood Count 3.73 M/UL (4.20-5.40) L Hemoglobin 13.4 G/DL (12.0-16.0) Hematocrit 37.2 % (37.0-47.0) Mean Corpuscular Volume 100 FL (80-99) H Mean Corpuscular Hemoglobin 35.8 PG (27.0-31.0) H Mean Corpuscular Hemoglobin Concent 35.9 G/DL (32.0-36.0) Red Cell Distribution Width 11.3 % (11.6-14.8) L Platelet Count 147 K/UL (150-450) L Mean Platelet Volume 6.2 FL (6.5-10.1) L Neutrophils (%) (Auto) 63.5 % (45.0-75.0) Lymphocytes (%) (Auto) 27.2 % (20.0-45.0) Monocytes (%) (Auto) 6.8 % (1.0-10.0) Eosinophils (%) (Auto) 1.8 % (0.0-3.0) Basophils (%) (Auto) 0.8 % (0.0-2.0) Erythrocyte Sedimentation Rate 55 MM/HR (0-20) H Sodium Level 143 MMOL/L (136-145) Potassium Level 3.4 MMOL/L (3.5-5.1) L Chloride Level 104 MMOL/L (98-107) Carbon Dioxide Level 27 MMOL/L (21-32) Anion Gap 12 mmol/L (5-15) Blood Urea Nitrogen 9 mg/dL (7-18) Creatinine 1.2 MG/DL (0.55-1.30) Estimat Glomerular Filtration Rate 48.8 mL/min (>60) Glucose Level 97 MG/DL (74-106) Calcium Level 5.6 MG/DL (8.5-10.1) *L Phosphorus Level 5.1 MG/DL (2.5-4.9) H Magnesium Level 1.3 MG/DL (1.8-2.4) L Total Bilirubin 0.8 MG/DL (0.2-1.0) Aspartate Amino Transf (AST/SGOT) 248 U/L (15-37) H Alanine Aminotransferase (ALT/SGPT) 171 U/L (12-78) H Alkaline Phosphatase 58 U/L (46-116) C-Reactive Protein, Quantitative 2.4 mg/dL (0.00-0.90) H Total Protein 7.7 G/DL (6.4-8.2) Albumin 3.2 G/DL (3.4-5.0) L Globulin 4.5 g/dL Albumin/Globulin Ratio 0.7 (1.0-2.7) L Hepatitis A IgM Antibody Pending Hepatitis B Surface Antigen Pending Hepatitis B Core IgM Antibody Pending Hepatitis C Antibody Pending Microbiology Date/Time Source Procedure Growth Status 12/24/19 19:00 Nasopharynx - Final Complete 12/24/19 19:00 Nasopharynx - Final Complete 12/24/19 16:00 Stool Clostridium difficile Toxin Assay - Final Complete 12/23/19 17:00 Urine,Clean Catch Urine Culture - Preliminary Staphylococcus Species Resulted 12/23/19 16:50 Urine,Clean Catch Urine Culture - Preliminary Staphylococcus Species Resulted Intake and Output 12/24/19 12/25/19 19:00 07:00 Intake Total 607.5 ml 1010.0 ml Balance 607.5 ml 1010.0 ml IV Total 607.5 ml 1010.0 ml # Voids 3 # Bowel Movements 1 1 Objective PHYSICAL EXAMINATION: GENERAL: The patient is awake, responsive, in no acute distress. HEAD AND NECK: Pupils are equal and reactive to light. Anicteric. Neck was supple. No JVD. LUNGS: Clear. No wheezing or rales. HEART: S1, S2. Regular rhythm. No gallops. ABDOMEN: Soft, nondistended, and nontender. Positive bowel sounds. Bilateral flank tenderness on deep palpation. No rebound tenderness. No fluid shift. EXTREMITIES: No cyanosis, clubbing, or edema. NEUROLOGIC: Cranial nerves II through XII are grossly intact. Motor is 5/5 in all extremities. Gait is intact. RECTAL/GENITOURINARY: Refused and deferred. PSYCHIATRIC: Mood and affect is intact. Assessment/Plan Assessment/Plan ASSESSMENT: 1. Upper respiratory, most likely secondary to viral syndrome. 2. Abnormal liver function, possible due to pancreatitis. 3. Hypertension. 4. Hypoparathyroidism. 5. Acute kidney injury on chronic renal insufficiency. 6. Dehydration. 7. Hypokalemia. 8. Hypocalcemia. 9. UTI=Staph Sp 10. Pancreatitis PLAN: 1. Admit the patient to medical floor. 2. We will follow up with thelaboratory as well as culture. 3. antibiotic = Zosyn 4. DVT prophylaxis, heparin subcutaneous. 5.Code status is Full Code. 6. Dr. Loya = Gastroenterology, 7. Dr. Mcintosh= Infectious Disease, 8. Dr. Oleary =Pulmonary Critical Care, and we Fidel Olvera MD Dec 25, 2019 15:22
[2019-12-25 16:00] VITALS: BP 130/81
--- NOTE | 2019-12-25 17:37 | General Progress Note ---
Assessment/Plan Assessment/Plan: Assessment/Plan Problem List: (1) HTN (hypertension) ICD Codes: I10 - Essential (primary) hypertension SNOMED: 62392899 (2) Hypokalemia ICD Codes: E87.6 - Hypokalemia SNOMED: 54378431 (3) Elevated liver enzymes ICD Codes: R74.8 - Abnormal levels of other serum enzymes SNOMED: 713040875 (4) Influenza-like syndrome ICD Codes: J11.1 - Influenza due to unidentified influenza virus with other respiratory manifestations SNOMED: 03146357, 395978066 (5) Acute gastroenteritis ICD Codes: K52.9 - Noninfective gastroenteritis and colitis, unspecified Assessment/Plan: replace electrolytes stool studies ivf abd us - fatty liver repeat labs hepatitis panel - pending Begin po diet Subjective Allergies: Coded Allergies: SULFA (SULFONAMIDE ANTIBIOTICS) (Verified Allergy, Unknown, 02/24/19) Subjective feels better abd pain resolved diarrhea resolved Objective Last 24 Hour Vital Signs Date Time Temp Pulse Resp B/P (MAP) Pulse Ox O2 Delivery O2 Flow Rate FiO2 12/25/19 16:00 98.1 88 20 130/81 (97) 98 12/25/19 12:04 72 18 99 Room Air 21 12/25/19 12:04 72 18 97 Room Air 21 12/25/19 12:00 97.9 91 20 139/95 (110) 99 12/25/19 09:11 139/94 12/25/19 09:00 Room Air 12/25/19 08:30 98.6 94 18 139/94 (109) 99 12/25/19 07:50 72 16 96 Room Air 21 12/25/19 07:50 70 16 96 Room Air 21 12/25/19 04:00 98.8 102 18 140/82 (101) 96 12/25/19 01:43 99 18 96 Room Air 21 12/25/19 01:41 98 16 95 Room Air 21 12/25/19 00:00 98.0 99 20 146/80 (102) 96 12/24/19 21:50 94 22 97 Room Air 21 12/24/19 21:47 91 22 93 Room Air 21 12/24/19 21:00 Room Air 12/24/19 19:41 98.8 95 18 131/86 (101) 97 Intake and Output 12/24/19 12/25/19 19:00 07:00 Intake Total 607.5 ml 1010.0 ml Balance 607.5 ml 1010.0 ml IV Total 607.5 ml 1010.0 ml # Voids 3 # Bowel Movements 1 1 Laboratory Tests 12/25/19 05:30: White Blood Count 4.8, Red Blood Count 3.73L, Hemoglobin 13.4, Hematocrit 37.2, Mean Corpuscular Volume 100H, Mean Corpuscular Hemoglobin 35.8H, Mean Corpuscular Hemoglobin Concent 35.9, Red Cell Distribution Width 11.3L, Platelet Count 147L, Mean Platelet Volume 6.2L, Neutrophils (%) (Auto) 63.5, Lymphocytes (%) (Auto) 27.2, Monocytes (%) (Auto) 6.8, Eosinophils (%) (Auto) 1.8, Basophils (%) (Auto) 0.8, Erythrocyte Sedimentation Rate 55H, Sodium Level 143, Potassium Level 3.4L, Chloride Level 104, Carbon Dioxide Level 27, Anion Gap 12, Blood Urea Nitrogen 9, Creatinine 1.2, Estimat Glomerular Filtration Rate 48.8, Glucose Level 97, Calcium Level 5.6*L, Phosphorus Level 5.1H, Magnesium Level 1.3L, Total Bilirubin 0.8, Aspartate Amino Transf (AST/SGOT) 248H, Alanine Aminotransferase (ALT/SGPT) 171H, Alkaline Phosphatase 58, C- Reactive Protein, Quantitative 2.4H, Total Protein 7.7, Albumin 3.2L, Globulin 4.5, Albumin/Globulin Ratio 0.7L, Hepatitis A IgM Antibody [Pending], Hepatitis B Surface Antigen [Pending], Hepatitis B Core IgM Antibody [Pending], Hepatitis C Antibody [Pending] Height (Feet): 5 Height (Inches): 4.00 Weight (Pounds): 190 Objective WDWN NCATsupple CTA RR abd soft ND no edema non focal Eduardo Shea MD Dec 25, 2019 17:37
--- NOTE | 2019-12-25 19:23 | NUR ---
HAND-OFF: Report given to PARTHA Grewal.
--- NOTE | 2019-12-25 19:30 | NUR ---
NURSE NOTES: Pt. received from PARTHA Jasmine. Pt. AAOx4, on room air, no complaints of pain, no indications of respiratory distress at this time. IV right AC 20g asymptomatic, intact, and patent; running D5 1/2NS 75cc/hr. Discussed advancing PO intake to cardiac, pt. verbalized understanding and will attempt. Bed is low and locked, side rails x2 up, and call light is in reach. Will continue to monitor.
[2019-12-25 20:00] VITALS: BP 133/76
[2019-12-25] MEDS: ALPRAZolam 0.5mg tab ORAL PRN (22:41)
[2019-12-26] VITALS: BP 136/87
[2019-12-26] MEDS: Albuterol 90mcg Inhaler 8gm INH SCH ×4 (01:34→20:33)
[2019-12-26] MEDS: Morphine Sulfate 2mg/ml Inj(IV/IM USE ONLY) IVP PRN ×5 (02:57→23:02)
[2019-12-26 04:00] VITALS: BP 125/93
--- NOTE | 2019-12-26 04:01 | NUR ---
NURSE NOTES: Pt. presents with flank pain throughout the night, managed at a tolerable level with pain medication. Attempting to advance PO intake, patient tolerating small bites; no N/V and no diarrhea at this time. Pt. able to sleep for extended periods of time. Up once to use the bathroom, ambulate with staff observation. Will continue to monitor.
[2019-12-26] MEDS: D5 1/2NS 1,000 ML IV SCH ×2 (04:36→16:10)
[2019-12-26 06:39] LABS: BASOPHILS % (AUTO) 1.1 % (0.0-2.0); EOSINOPHILS % (AUTO) 4.8 % (0.0-3.0); HEMATOCRIT 37.3 % (37.0-47.0); HEMOGLOBIN 13.2 G/DL (12.0-16.0); MEAN CORPUSCULAR VOLUME 100 FL (80-99); MONOCYTES % (AUTO) 6.2 % (1.0-10.0); NEUTROPHILS % (AUTO) 57.9 % (45.0-75.0); PLATELET COUNT 147 K/UL (150-450); RED BLOOD COUNT 3.74 M/UL (4.20-5.40); RED CELL DISTRIBUTION WIDTH 11.1 % (11.6-14.8); WHITE BLOOD COUNT 4.4 K/UL (4.8-10.8)
[2019-12-26 07:03] LABS: ANION GAP 12 mmol/L (5-15); BLOOD UREA NITROGEN 6 mg/dL (7-18); CARBON DIOXIDE 26 MMOL/L (21-32); CHLORIDE 105 MMOL/L (98-107); CREATININE 1.1 MG/DL (0.55-1.30); POTASSIUM 3.1 MMOL/L (3.5-5.1); SODIUM 143 MMOL/L (136-145)
[2019-12-26 07:13] LABS: CALCIUM 5.7 MG/DL (8.5-10.1)
--- NOTE | 2019-12-26 07:18 | NUR ---
NURSE NOTES: Critical lab value: Calcium 5.[address] Houston. Awaiting return call and orders.
--- NOTE | 2019-12-26 07:48 | NUR ---
HAND-OFF: Report given to PARTHA Thomas.
[2019-12-26 08:00] VITALS: BP 133/87
--- NOTE | 2019-12-26 08:00 | NUR ---
NURSE NOTES: received patient in bed, jose, no sign of respiratory distress or discomfort noted. Skin intact. RAC IV access, receives IVF. Bed locked at the lowest position possible, call light within easy reach, siderails up x2. Will continue to monitor patient and follow up with the plan of care.
[2019-12-26] MEDS: Losartan 25mg tab ORAL SCH (09:14)
[2019-12-26] MEDS: Pantoprazole Inj IVP SCH (09:15)
[2019-12-26] MEDS: Calcitriol 0.5mcg Cap ORAL SCH ×2 (09:15→18:20)
[2019-12-26] MEDS: Calcium Carbonate 650mg Tab ORAL SCH (09:15)
[2019-12-26] MEDS: Heparin 5000 units/ml inj SUBQ SCH ×2 (09:17→21:24)
[2019-12-26] MEDS ORDERED: Tubing IV Secondary IV ONE (09:58)
[2019-12-26] MEDS ORDERED: D5 1/2NS 1000ml IV ONE (09:58)
[2019-12-26] MEDS: Vancomycin 750 MG in NS 275 ML IVPB SCH (11:51)
[2019-12-26 12:00] VITALS: BP 131/97
--- NOTE | 2019-12-26 14:50 | Internal Med Progress Note ---
Subjective Date of Service: Dec 26, 2019 Physician Name Fidel Olvera Attending Physician Karl Houston MD Current Medications Medications (Trade) Dose Ordered Sig/Sung Route PRN Reason Start Time Stop Time Status Last Admin Dose Admin Acetaminophen (Tylenol) 650 mg Q4H PRN ORAL fever 12/23/19 21:30 01/22/20 21:29 Albuterol Sulfate (Proventil MDI) 2 puff Q6HRT INH 12/24/19 07:00 01/22/20 21:29 12/26/19 13:09 Alprazolam (Xanax) 1 mg Q6H PRN ORAL For Anxiety 12/23/19 23:15 12/30/19 23:14 12/25/19 22:41 Calcitriol (Rocaltrol) 1 mcg BID ORAL 12/25/19 09:00 01/23/20 17:59 12/26/19 09:15 Calcium Carbonate (Calcium Carbonate) 1,300 mg DAILY ORAL 12/25/19 10:15 01/24/20 10:14 12/26/19 09:15 Dextrose (Dextrose 50%) 25 ml Q30M PRN IV Hypoglycemia 12/23/19 21:30 01/22/20 21:29 Dextrose (Dextrose 50%) 50 ml Q30M PRN IV Hypoglycemia 12/23/19 21:30 01/22/20 21:29 Dextrose/Sodium Chloride 1,000 ml @ 75 mls/hr [id number] IV 12/23/19 22:00 01/22/20 21:59 12/26/19 04:36 Diphenhydramine HCl (Benadryl) 25 mg Q6H PRN ORAL Itching/Pruritis 12/23/19 21:30 01/22/20 21:29 Heparin Sodium (Porcine) (Heparin 5000 units/ml) 5,000 units EVERY 12 HOURS SUBQ 12/26/19 09:00 01/23/20 08:59 12/26/19 09:17 Losartan Potassium (Cozaar) 25 mg DAILY ORAL 12/24/19 09:00 01/23/20 08:59 12/26/19 09:14 Morphine Sulfate (Morphine Sulfate) 2 mg Q4H PRN IVP moderate to severe pain 12/23/19 23:00 12/30/19 22:59 12/26/19 13:19 Nitroglycerin (Ntg) 0.4 mg Q5M X 3 DOSES PRN SL Prn Chest Pain 12/23/19 21:30 01/22/20 21:29 Ondansetron HCl (Zofran) 4 mg Q6H PRN IVP Nausea & Vomiting 12/23/19 21:30 01/22/20 21:29 12/24/19 19:03 Pantoprazole (Protonix) 40 mg DAILY ORAL 12/27/19 09:00 01/26/20 08:59 Polyethylene Glycol (Miralax) 17 gm HSPRN PRN ORAL Constipation 12/23/19 21:30 01/22/20 21:29 Potassium Chloride (K-Dur) 40 meq Q6H ORAL 12/26/19 09:00 12/26/19 15:01 12/26/19 09:18 Temazepam (Restoril) 15 mg HSPRN PRN ORAL Insomnia 12/23/19 21:30 12/30/19 21:29 12/24/19 20:55 Vancomycin HCl (Vanco rx to dose) 1 ea DAILY PRN MISC Per rx protocol 12/25/19 10:15 01/24/20 10:14 Vancomycin HCl 750 mg/Sodium Chloride 275 ml @ 183.333 mls/hr Q12H IVPB 12/25/19 12:00 12/30/19 11:59 12/26/19 11:51 Allergies: Coded Allergies: SULFA (SULFONAMIDE ANTIBIOTICS) (Verified Allergy, Unknown, 02/24/19) ROS Limited/Unobtainable: No Constitutional: Reports: no symptoms HEENT: Reports: no symptoms Cardiovascular: Reports: no symptoms Respiratory: Reports: no symptoms Gastrointestinal/Abdominal: Reports: abdominal pain Genitourinary: Reports: no symptoms Subjective 44 YO F admitted with nausea, vomiting and diarrhea. Now pancreatitis and UTI. Cover for Int Tian-Dr Houston Objective Last Vital Signs Date Time Temp Pulse Resp B/P (MAP) Pulse Ox O2 Delivery O2 Flow Rate FiO2 12/26/19 12:00 98.2 93 20 131/97 (108) 97 12/26/19 09:00 Room Air 12/26/19 07:40 21 Laboratory Tests Test 12/26/19 05:30 White Blood Count 4.4 K/UL (4.8-10.8) L Red Blood Count 3.74 M/UL (4.20-5.40) L Hemoglobin 13.2 G/DL (12.0-16.0) Hematocrit 37.3 % (37.0-47.0) Mean Corpuscular Volume 100 FL (80-99) H Mean Corpuscular Hemoglobin 35.3 PG (27.0-31.0) H Mean Corpuscular Hemoglobin Concent 35.4 G/DL (32.0-36.0) Red Cell Distribution Width 11.1 % (11.6-14.8) L Platelet Count 147 K/UL (150-450) L Mean Platelet Volume 6.2 FL (6.5-10.1) L Neutrophils (%) (Auto) 57.9 % (45.0-75.0) Lymphocytes (%) (Auto) 30.0 % (20.0-45.0) Monocytes (%) (Auto) 6.2 % (1.0-10.0) Eosinophils (%) (Auto) 4.8 % (0.0-3.0) H Basophils (%) (Auto) 1.1 % (0.0-2.0) Sodium Level 143 MMOL/L (136-145) Potassium Level 3.1 MMOL/L (3.5-5.1) L Chloride Level 105 MMOL/L (98-107) Carbon Dioxide Level 26 MMOL/L (21-32) Anion Gap 12 mmol/L (5-15) Blood Urea Nitrogen 6 mg/dL (7-18) L Creatinine 1.1 MG/DL (0.55-1.30) Estimat Glomerular Filtration Rate 53.9 mL/min (>60) Glucose Level 116 MG/DL (74-106) H Calcium Level 5.7 MG/DL (8.5-10.1) *L Microbiology Date/Time Source Procedure Growth Status 12/24/19 19:00 Nasopharynx - Final Complete 12/24/19 19:00 Nasopharynx - Final Complete 12/24/19 16:00 Stool Clostridium difficile Toxin Assay - Final Complete 12/23/19 17:00 Urine,Clean Catch Urine Culture - Preliminary Staphylococcus Caprae Resulted 12/23/19 16:50 Urine,Clean Catch Urine Culture - Preliminary Staphylococcus Species Resulted Intake and Output 12/25/19 12/26/19 19:00 07:00 Intake Total 30 ml 1500.000 ml Balance 30 ml 1500.000 ml Intake Oral 30 ml 850 ml IV Total 650.000 ml # Voids 8 2 Objective PHYSICAL EXAMINATION: GENERAL: The patient is awake, responsive, in no acute distress. HEAD AND NECK: Pupils are equal and reactive to light. Anicteric. Neck was supple. No JVD. LUNGS: Clear. No wheezing or rales. HEART: S1, S2. Regular rhythm. No gallops. ABDOMEN: Soft, nondistended, and nontender. Positive bowel sounds. Bilateral flank tenderness on deep palpation. No rebound tenderness. No fluid shift. EXTREMITIES: No cyanosis, clubbing, or edema. NEUROLOGIC: Cranial nerves II through XII are grossly intact. Motor is 5/5 in all extremities. Gait is intact. RECTAL/GENITOURINARY: Refused and deferred. PSYCHIATRIC: Mood and affect is intact. Assessment/Plan Assessment/Plan ASSESSMENT: 1. Upper respiratory, most likely secondary to viral syndrome. 2. Abnormal liver function, possible due to pancreatitis. 3. Hypertension. 4. Hypoparathyroidism. 5. Acute kidney injury on chronic renal insufficiency. 6. Dehydration. 7. Hypokalemia. 8. Hypocalcemia. 9. UTI=Staph Sp 10. Pancreatitis 11. Hypocalcemia PLAN: 1. Admit the patient to medical floor. 2. We will follow up with thelaboratory as well as culture. 3. antibiotic = Zosyn 4. DVT prophylaxis, heparin subcutaneous. 5.Code status is Full Code. 6. Dr. Loya = Gastroenterology, 7. Dr. Mcintosh= Infectious Disease, 8. Dr. Oleary =Pulmonary Critical Care, and we 9. Calcium supplement 10. Advance to full liquid diet Fidel Olvera MD Dec 26, 2019 14:50
[2019-12-26 16:00] VITALS: BP 131/87
--- NOTE | 2019-12-26 16:30 | General Progress Note ---
Assessment/Plan Assessment/Plan: Assessment/Plan Problem List: (1) HTN (hypertension) ICD Codes: I10 - Essential (primary) hypertension SNOMED: 49334165 (2) Hypokalemia ICD Codes: E87.6 - Hypokalemia SNOMED: 70662136 (3) Elevated liver enzymes ICD Codes: R74.8 - Abnormal levels of other serum enzymes SNOMED: 398971932 (4) Influenza-like syndrome ICD Codes: J11.1 - Influenza due to unidentified influenza virus with other respiratory manifestations SNOMED: 68680129, 627773071 (5) Acute gastroenteritis ICD Codes: K52.9 - Noninfective gastroenteritis and colitis, unspecified Assessment/Plan: replace electrolytes stool studies ivf abd us - fatty liver repeat labs hepatitis panel - pending po diet Subjective Allergies: Coded Allergies: SULFA (SULFONAMIDE ANTIBIOTICS) (Verified Allergy, Unknown, 02/24/19) Subjective feels better abd pain resolved some loose BM overnight Objective Last 24 Hour Vital Signs Date Time Temp Pulse Resp B/P (MAP) Pulse Ox O2 Delivery O2 Flow Rate FiO2 12/26/19 16:00 98.0 87 18 131/87 (102) 98 12/26/19 13:49 99.5 12/26/19 13:21 79 18 99 Room Air 21 12/26/19 13:19 79 18 99 Room Air 12/26/19 12:00 98.2 93 20 131/97 (108) 97 12/26/19 09:14 133/87 12/26/19 09:00 Room Air 12/26/19 08:00 99.5 90 19 133/87 (102) 98 12/26/19 07:40 85 16 99 Room Air 21 12/26/19 07:38 85 16 99 Room Air 12/26/19 04:00 99.1 92 16 125/93 (104) 98 12/26/19 01:35 72 18 96 Room Air 21 12/26/19 01:35 70 18 95 Room Air 21 12/26/19 00:00 98.9 96 18 136/87 (103) 99 12/25/19 21:00 Room Air 12/25/19 20:28 77 18 96 Room Air 21 12/25/19 20:28 75 18 97 Room Air 21 12/25/19 20:00 98.2 93 18 133/76 (95) 99 Intake and Output 12/25/19 12/26/19 19:00 07:00 Intake Total 30 ml 1500.000 ml Balance 30 ml 1500.000 ml Intake Oral 30 ml 850 ml IV Total 650.000 ml # Voids 8 2 Laboratory Tests 12/26/19 05:30: White Blood Count 4.4L, Red Blood Count 3.74L, Hemoglobin 13.2, Hematocrit 37.3 , Mean Corpuscular Volume 100H, Mean Corpuscular Hemoglobin 35.3H, Mean Corpuscular Hemoglobin Concent 35.4, Red Cell Distribution Width 11.1L, Platelet Count 147L, Mean Platelet Volume 6.2L, Neutrophils (%) (Auto) 57.9, Lymphocytes (%) (Auto) 30.0, Monocytes (%) (Auto) 6.2, Eosinophils (%) (Auto) 4.8H, Basophils (%) (Auto) 1.1, Sodium Level 143, Potassium Level 3.1L, Chloride Level 105, Carbon Dioxide Level 26, Anion Gap 12, Blood Urea Nitrogen 6L, Creatinine 1.1, Estimat Glomerular Filtration Rate 53.9, Glucose Level 116H , Calcium Level 5.7*L Height (Feet): 5 Height (Inches): 4.00 Weight (Pounds): 190 Objective WDWN NCATsupple CTA RR abd soft ND no edema non focal Eduardo Shea MD Dec 26, 2019 16:30
--- NOTE | 2019-12-26 19:14 | NUR ---
HAND-OFF: Report given to RN Minsu.
--- NOTE | 2019-12-26 19:33 | NUR ---
NURSE NOTES: Received report from PARTHA Thomas. Patient a/a/o x 4, breathing unlabored on room air without distress. Pain at 6/10 after the PRN pain medication. Patient verbalized "this is tolerable pain scale for me". Will continue to monitor. IV noted on right antecubital intact and patent running IVF ordered. Patient also informed RN that patient was able to tolerate sandwich without nausea and vomiting and is ready to advance the diet. Active order to advance to cardiac diet as tolerated. Will carry out the order as given. Bed placed at the lowest with alarm, brake, and siderails up for safety. Call light placed within reach. Will continue to monitor.
[2019-12-26 20:00] VITALS: BP 136/91
[2019-12-26] MEDS: ALPRAZolam 0.5mg tab ORAL PRN (21:21)
[2019-12-27] VITALS: BP 126/82
[2019-12-27] MEDS: Vancomycin 750 MG in NS 275 ML IVPB SCH ×2
--- NOTE | 2019-12-27 00:08 | NUR ---
NURSE NOTES: Spoke with pharmacist Genna from [facility], [place]. Patient's vanco trough level resulted 9.8. Informed the pharmacist. Dose changed from Vancomycin 750mg to Vancomycin 1g per pharmacist to dose.
[2019-12-27] MEDS: Albuterol 90mcg Inhaler 8gm INH SCH ×4 (00:34→20:34)
[2019-12-27] MEDS: Vancomycin 1 GM in NS 275 ML IVPB SCH ×2 (00:38→12:51)
[2019-12-27] MEDS: Morphine Sulfate 2mg/ml Inj(IV/IM USE ONLY) IVP PRN ×5 (03:09→21:33)
[2019-12-27 04:00] VITALS: BP 122/80
[2019-12-27] MEDS: D5 1/2NS 1,000 ML IV SCH ×2 (05:35→19:20)
--- NOTE | 2019-12-27 07:40 | NUR ---
HAND-OFF: Report given to PARTHA Thomas. Plan of care endorsed.
[2019-12-27 07:56] LABS: BASOPHILS % (AUTO) 1.2 % (0.0-2.0); EOSINOPHILS % (AUTO) 4.7 % (0.0-3.0); HEMATOCRIT 38.6 % (37.0-47.0); HEMOGLOBIN 13.8 G/DL (12.0-16.0); LYMPHOCYTES % (AUTO) 34.6 % (20.0-45.0); MEAN CORPUSCULAR VOLUME 99 FL (80-99); MONOCYTES % (AUTO) 8.6 % (1.0-10.0); NEUTROPHILS % (AUTO) 50.8 % (45.0-75.0); PLATELET COUNT 144 K/UL (150-450); RED BLOOD COUNT 3.88 M/UL (4.20-5.40); RED CELL DISTRIBUTION WIDTH 11.3 % (11.6-14.8); WHITE BLOOD COUNT 5.4 K/UL (4.8-10.8)
[2019-12-27 08:16] LABS: ANION GAP 12 mmol/L (5-15); BLOOD UREA NITROGEN 4 mg/dL (7-18); CALCIUM 6.3 MG/DL (8.5-10.1); CARBON DIOXIDE 24 MMOL/L (21-32); CHLORIDE 106 MMOL/L (98-107); POTASSIUM 3.3 MMOL/L (3.5-5.1); SODIUM 142 MMOL/L (136-145)
[2019-12-27] MEDS: Calcitriol 0.5mcg Cap ORAL SCH ×2 (08:34→16:51)
[2019-12-27] MEDS: Calcium Carbonate 650mg Tab ORAL SCH (08:34)
[2019-12-27] MEDS: Heparin 5000 units/ml inj SUBQ SCH ×2 (08:40→21:38)
--- NOTE | 2019-12-27 09:46 | General Progress Note ---
Assessment/Plan Problem List: (1) HTN (hypertension) ICD Codes: I10 - Essential (primary) hypertension SNOMED: 57913931 (2) Hypokalemia ICD Codes: E87.6 - Hypokalemia SNOMED: 91571185 (3) Elevated liver enzymes ICD Codes: R74.8 - Abnormal levels of other serum enzymes SNOMED: 028336307 (4) Influenza-like syndrome ICD Codes: J11.1 - Influenza due to unidentified influenza virus with other respiratory manifestations SNOMED: 68871289, 047680522 (5) Acute gastroenteritis ICD Codes: K52.9 - Noninfective gastroenteritis and colitis, unspecified SNOMED: 70677858 (6) UTI (urinary tract infection) ICD Codes: N39.0 - Urinary tract infection, site not specified SNOMED: 37611779 Assessment/Plan: replace electrolytes stool studies>>> neg C.diff ivf abd us>>> reviewed>>> fatty liver, post carola repeat labs hepatitis panel>>> pending abx per ID replace K prn imodium Subjective Allergies: Coded Allergies: SULFA (SULFONAMIDE ANTIBIOTICS) (Verified Allergy, Unknown, 02/24/19) Objective Last 24 Hour Vital Signs Date Time Temp Pulse Resp B/P (MAP) Pulse Ox O2 Delivery O2 Flow Rate FiO2 12/27/19 07:55 95 20 98 Room Air 12/27/19 07:55 94 20 97 Room Air 12/27/19 04:00 99.3 88 18 122/80 (94) 98 12/27/19 00:35 94 18 98 Room Air 12/27/19 00:34 91 18 98 Room Air 12/27/19 00:00 99.5 84 18 126/82 (97) 97 12/26/19 21:00 Room Air 12/26/19 20:34 100 18 98 Room Air 12/26/19 20:33 100 18 97 Room Air 12/26/19 20:00 98.8 98 20 136/91 (106) 98 12/26/19 18:50 98.0 12/26/19 16:00 98.0 87 18 131/87 (102) 98 12/26/19 13:21 79 18 99 Room Air 21 12/26/19 13:19 79 18 99 Room Air 21 12/26/19 12:00 98.2 93 20 131/97 (108) 97 Intake and Output 12/26/19 12/27/19 19:00 07:00 Intake Total 1600.000 ml 2400.000 ml Balance 1600.000 ml 2400.000 ml Intake Oral 1450 ml IV Total 800.000 ml 950.000 ml Other 800 ml # Voids 3 Laboratory Tests 12/26/19 22:50: Vancomycin Level Trough 9.8 12/27/19 05:32: White Blood Count 5.4, Red Blood Count 3.88L, Hemoglobin 13.8, Hematocrit 38.6, Mean Corpuscular Volume 99, Mean Corpuscular Hemoglobin 35.6H, Mean Corpuscular Hemoglobin Concent 35.8, Red Cell Distribution Width 11.3L, Platelet Count 144L , Mean Platelet Volume 6.3L, Neutrophils (%) (Auto) 50.8, Lymphocytes (%) (Auto ) 34.6, Monocytes (%) (Auto) 8.6, Eosinophils (%) (Auto) 4.7H, Basophils (%) ( Auto) 1.2, Sodium Level 142, Potassium Level 3.3L, Chloride Level 106, Carbon Dioxide Level 24, Anion Gap 12, Blood Urea Nitrogen 4L, Creatinine 1.0, Estimat Glomerular Filtration Rate > 60, Glucose Level 102, Calcium Level 6.3L Height (Feet): 5 Height (Inches): 4.00 Weight (Pounds): 190 General Appearance: no apparent distress EENT: normal ENT inspection Neck: supple Cardiovascular: normal rate Respiratory/Chest: lungs clear Abdomen: normal bowel sounds, non tender, soft Extremities: non-tender Wai Loya MD Dec 27, 2019 09:46
[2019-12-27] MEDS: Losartan 25mg tab ORAL SCH (11:17)
--- NOTE | 2019-12-27 12:00 | NUR ---
NURSE NOTES: patient is crying due to IV potassium at her left hand access. Patient asked to give her a break from it and have the medication later.
--- NOTE | 2019-12-27 14:18 | NUR ---
CASE MANAGEMENT:REVIEW 12/25/2019 SI;PANCREATITIS, UTI 98.2 93 20 139/95 96% ON RA K+ 3.4 CA 5.8 AST 117 ALT 123 IS;VANCO IV Q12 HRS MORPHINE IV Q12 HRS CALCIUM CARBONATE PO QD MED SURG STATUS DCP;FROM HOME CASE MANAGEMENT:REVIEW 12/26/2019 SI;PANCREATITIS, UTI 99.5 96 19 133/87 95% ON RA K+ 3.1 CA 5.7 IS;VANCO IV Q12 HRS MORPHINE IV Q12 HRS CALCIUM CARBONATE PO QD MED SURG STATUS DCP;FROM HOME CASE MANAGEMENT:REVIEW 12/27/2019 SI;PANCREATITIS, UTI 99.5 94 20 148/106 97% ON RA K+ 3.1 CA 5.7 IS;VANCO IV Q12 HRS MORPHINE IV Q12 HRS CALCIUM CARBONATE PO QD K CL IV @ 100ML/HR MED SURG STATUS DCP;FROM HOME
--- NOTE | 2019-12-27 14:53 | Infectious Diseases Prog Note ---
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 Status post cholecystectomy.Fatty liver -hep panel p YAKOV, improving -Renal US: Bilateral nonobstructive nephrolithiasis. 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 Bilateral renal cysts. Hypertension hypoparathyroidism s/p Cholecystectomy Plan: -D/c empiric IV vancomycin #3 and monitor off abx -12/25 SP Zosyn #2 -12/23 SP Ceftriaxone x1 -f/u cx -Monitor CBC/CMP, temperatures -f/u Bcx x2 -f/u hep panel Thank you for this consultation. Will continue to follow along with you. Discussed with RN Subjective Allergies: Coded Allergies: SULFA (SULFONAMIDE ANTIBIOTICS) (Verified Allergy, Unknown, 02/24/19) Subjective afebrile Cr improving elevated LFTs Objective Vital Signs Last 24 Hour Vital Signs Date Time Temp Pulse Resp B/P (MAP) Pulse Ox O2 Delivery O2 Flow Rate FiO2 12/27/19 13:49 87 20 99 Room Air 12/27/19 13:49 88 20 99 Room Air 12/27/19 11:17 148/106 12/27/19 09:04 99.3 12/27/19 07:55 95 20 98 Room Air 12/27/19 07:55 94 20 97 Room Air 12/27/19 04:00 99.3 88 18 122/80 (94) 98 12/27/19 00:35 94 18 98 Room Air 21 12/27/19 00:34 91 18 98 Room Air 12/27/19 00:00 99.5 84 18 126/82 (97) 97 12/26/19 21:00 Room Air 12/26/19 20:34 100 18 98 Room Air 21 12/26/19 20:33 100 18 97 Room Air 21 12/26/19 20:00 98.8 98 20 136/91 (106) 98 12/26/19 16:00 98.0 87 18 131/87 (102) 98 Height (Feet): 5 Height (Inches): 4.00 Weight (Pounds): 190 Objective General Appearance: WD/WN HEENT: normocephalic Respiratory/Chest: chest wall non-tender, no respiratory distress Cardiovascular: normal peripheral pulses, regular rhythm Abdomen: normal bowel sounds, soft, non tender Extremities: no cyanosis, no clubbing Skin: no lesion Microbiology Date/Time Source Procedure Growth Status 12/25/19 10:25 Blood Blood Culture - Preliminary NO GROWTH AFTER 24 HOURS Resulted 12/25/19 10:15 Blood Blood Culture - Preliminary NO GROWTH AFTER 24 HOURS Resulted 12/24/19 19:00 Nasopharynx - Final Complete 12/24/19 19:00 Nasopharynx - Final Complete 12/24/19 16:00 Stool Stool Culture - Final NO SALMONELLA,SHIGELLA,OR CAMPYLOBACT... Complete 12/24/19 16:00 Stool Clostridium difficile Toxin Assay - Final Complete Laboratory Tests Test 12/26/19 22:50 12/27/19 05:32 Vancomycin Level Trough 9.8 ug/mL (5.0-12.0) White Blood Count 5.4 K/UL (4.8-10.8) Red Blood Count 3.88 M/UL (4.20-5.40) L Hemoglobin 13.8 G/DL (12.0-16.0) Hematocrit 38.6 % (37.0-47.0) Mean Corpuscular Volume 99 FL (80-99) Mean Corpuscular Hemoglobin 35.6 PG (27.0-31.0) H Mean Corpuscular Hemoglobin Concent 35.8 G/DL (32.0-36.0) Red Cell Distribution Width 11.3 % (11.6-14.8) L Platelet Count 144 K/UL (150-450) L Mean Platelet Volume 6.3 FL (6.5-10.1) L Neutrophils (%) (Auto) 50.8 % (45.0-75.0) Lymphocytes (%) (Auto) 34.6 % (20.0-45.0) Monocytes (%) (Auto) 8.6 % (1.0-10.0) Eosinophils (%) (Auto) 4.7 % (0.0-3.0) H Basophils (%) (Auto) 1.2 % (0.0-2.0) Sodium Level 142 MMOL/L (136-145) Potassium Level 3.3 MMOL/L (3.5-5.1) L Chloride Level 106 MMOL/L (98-107) Carbon Dioxide Level 24 MMOL/L (21-32) Anion Gap 12 mmol/L (5-15) Blood Urea Nitrogen 4 mg/dL (7-18) L Creatinine 1.0 MG/DL (0.55-1.30) Estimat Glomerular Filtration Rate > 60 mL/min (>60) Glucose Level 102 MG/DL (74-106) Calcium Level 6.3 MG/DL (8.5-10.1) L Current Medications Medications (Trade) Dose Ordered Sig/Sung Route PRN Reason Start Time Stop Time Status Last Admin Dose Admin Acetaminophen (Tylenol) 650 mg Q4H PRN ORAL fever 12/23/19 21:30 01/22/20 21:29 Albuterol Sulfate (Proventil MDI) 2 puff Q6HRT INH 12/24/19 07:00 01/22/20 21:29 12/27/19 13:50 Alprazolam (Xanax) 1 mg Q6H PRN ORAL For Anxiety 12/23/19 23:15 12/30/19 23:14 12/26/19 21:21 Calcitriol (Rocaltrol) 1 mcg BID ORAL 12/25/19 09:00 01/23/20 17:59 12/27/19 08:34 Calcium Carbonate (Calcium Carbonate) 1,300 mg DAILY ORAL 12/25/19 10:15 01/24/20 10:14 12/27/19 08:34 Dextrose (Dextrose 50%) 25 ml Q30M PRN IV Hypoglycemia 12/23/19 21:30 01/22/20 21:29 Dextrose (Dextrose 50%) 50 ml Q30M PRN IV Hypoglycemia 12/23/19 21:30 01/22/20 21:29 Dextrose/Sodium Chloride 1,000 ml @ 75 mls/hr [id number] IV 12/23/19 22:00 01/22/20 21:59 12/27/19 05:35 Diphenhydramine HCl (Benadryl) 25 mg Q6H PRN ORAL Itching/Pruritis 12/23/19 21:30 01/22/20 21:29 Heparin Sodium (Porcine) (Heparin 5000 units/ml) 5,000 units EVERY 12 HOURS SUBQ 12/26/19 09:00 01/23/20 08:59 12/27/19 08:40 Loperamide HCl (Imodium) 2 mg Q4H PRN ORAL Diarrhea 12/27/19 09:45 01/26/20 09:44 Losartan Potassium (Cozaar) 25 mg DAILY ORAL 12/24/19 09:00 01/23/20 08:59 12/27/19 11:17 Morphine Sulfate (Morphine Sulfate) 2 mg Q4H PRN IVP moderate to severe pain 12/23/19 23:00 12/30/19 22:59 12/27/19 12:47 Nitroglycerin (Ntg) 0.4 mg Q5M X 3 DOSES PRN SL Prn Chest Pain 12/23/19 21:30 01/22/20 21:29 Ondansetron HCl (Zofran) 4 mg Q6H PRN IVP Nausea & Vomiting 12/23/19 21:30 01/22/20 21:29 12/27/19 11:23 Pantoprazole (Protonix) 40 mg DAILY ORAL 12/27/19 09:00 01/26/20 08:59 12/27/19 08:35 Polyethylene Glycol (Miralax) 17 gm HSPRN PRN ORAL Constipation 12/23/19 21:30 01/22/20 21:29 Temazepam (Restoril) 15 mg HSPRN PRN ORAL Insomnia 12/23/19 21:30 12/30/19 21:29 12/24/19 20:55 Vancomycin HCl (Vanco rx to dose) 1 ea DAILY PRN MISC Per rx protocol 12/25/19 10:15 01/24/20 10:14 Vancomycin HCl 1 gm/Sodium Chloride 275 ml @ 183.333 mls/hr Q12H IVPB 12/27/19 00:30 12/30/19 00:29 12/27/19 12:51 Zita Mcintosh M.D. Dec 27, 2019 14:53
[2019-12-27 16:00] VITALS: BP 166/110
--- NOTE | 2019-12-27 19:06 | Internal Med Progress Note ---
Subjective Date of Service: Dec 27, 2019 Physician Name Fidel Olvera Attending Physician Karl Houston MD Current Medications Medications (Trade) Dose Ordered Sig/Sung Route PRN Reason Start Time Stop Time Status Last Admin Dose Admin Acetaminophen (Tylenol) 650 mg Q4H PRN ORAL fever 12/23/19 21:30 01/22/20 21:29 Albuterol Sulfate (Proventil MDI) 2 puff Q6HRT INH 12/24/19 07:00 01/22/20 21:29 12/27/19 13:50 Alprazolam (Xanax) 1 mg Q6H PRN ORAL For Anxiety 12/23/19 23:15 12/30/19 23:14 12/26/19 21:21 Calcitriol (Rocaltrol) 1 mcg BID ORAL 12/25/19 09:00 01/23/20 17:59 12/27/19 16:51 Calcium Carbonate (Calcium Carbonate) 1,300 mg DAILY ORAL 12/25/19 10:15 01/24/20 10:14 12/27/19 08:34 Dextrose (Dextrose 50%) 25 ml Q30M PRN IV Hypoglycemia 12/23/19 21:30 01/22/20 21:29 Dextrose (Dextrose 50%) 50 ml Q30M PRN IV Hypoglycemia 12/23/19 21:30 01/22/20 21:29 Dextrose/Sodium Chloride 1,000 ml @ 75 mls/hr [id number] IV 12/23/19 22:00 01/22/20 21:59 12/27/19 05:35 Diphenhydramine HCl (Benadryl) 25 mg Q6H PRN ORAL Itching/Pruritis 12/23/19 21:30 01/22/20 21:29 Heparin Sodium (Porcine) (Heparin 5000 units/ml) 5,000 units EVERY 12 HOURS SUBQ 12/26/19 09:00 01/23/20 08:59 12/27/19 08:40 Loperamide HCl (Imodium) 2 mg Q4H PRN ORAL Diarrhea 12/27/19 09:45 01/26/20 09:44 Losartan Potassium (Cozaar) 25 mg DAILY ORAL 12/24/19 09:00 01/23/20 08:59 12/27/19 11:17 Morphine Sulfate (Morphine Sulfate) 2 mg Q4H PRN IVP moderate to severe pain 12/23/19 23:00 12/30/19 22:59 12/27/19 16:50 Nitroglycerin (Ntg) 0.4 mg Q5M X 3 DOSES PRN SL Prn Chest Pain 12/23/19 21:30 01/22/20 21:29 Ondansetron HCl (Zofran) 4 mg Q6H PRN IVP Nausea & Vomiting 12/23/19 21:30 01/22/20 21:29 12/27/19 11:23 Pantoprazole (Protonix) 40 mg DAILY ORAL 12/27/19 09:00 01/26/20 08:59 12/27/19 08:35 Polyethylene Glycol (Miralax) 17 gm HSPRN PRN ORAL Constipation 12/23/19 21:30 01/22/20 21:29 Temazepam (Restoril) 15 mg HSPRN PRN ORAL Insomnia 12/23/19 21:30 12/30/19 21:29 12/24/19 20:55 Allergies: Coded Allergies: SULFA (SULFONAMIDE ANTIBIOTICS) (Verified Allergy, Unknown, 02/24/19) ROS Limited/Unobtainable: No Constitutional: Reports: no symptoms HEENT: Reports: no symptoms Cardiovascular: Reports: no symptoms Respiratory: Reports: no symptoms Gastrointestinal/Abdominal: Reports: no symptoms Genitourinary: Reports: no symptoms Neurologic/Psychiatric: Reports: no symptoms Subjective 44 YO F admitted with nausea, vomiting and diarrhea. Now pancreatitis and UTI. Cover for Int Tian-Dr Houston Objective Last Vital Signs Date Time Temp Pulse Resp B/P (MAP) Pulse Ox O2 Delivery O2 Flow Rate FiO2 12/27/19 17:20 97.7 12/27/19 16:00 98 18 166/110 (128) 99 12/27/19 13:49 Room Air 21 Laboratory Tests Test 12/26/19 22:50 12/27/19 05:32 Vancomycin Level Trough 9.8 ug/mL (5.0-12.0) White Blood Count 5.4 K/UL (4.8-10.8) Red Blood Count 3.88 M/UL (4.20-5.40) L Hemoglobin 13.8 G/DL (12.0-16.0) Hematocrit 38.6 % (37.0-47.0) Mean Corpuscular Volume 99 FL (80-99) Mean Corpuscular Hemoglobin 35.6 PG (27.0-31.0) H Mean Corpuscular Hemoglobin Concent 35.8 G/DL (32.0-36.0) Red Cell Distribution Width 11.3 % (11.6-14.8) L Platelet Count 144 K/UL (150-450) L Mean Platelet Volume 6.3 FL (6.5-10.1) L Neutrophils (%) (Auto) 50.8 % (45.0-75.0) Lymphocytes (%) (Auto) 34.6 % (20.0-45.0) Monocytes (%) (Auto) 8.6 % (1.0-10.0) Eosinophils (%) (Auto) 4.7 % (0.0-3.0) H Basophils (%) (Auto) 1.2 % (0.0-2.0) Sodium Level 142 MMOL/L (136-145) Potassium Level 3.3 MMOL/L (3.5-5.1) L Chloride Level 106 MMOL/L (98-107) Carbon Dioxide Level 24 MMOL/L (21-32) Anion Gap 12 mmol/L (5-15) Blood Urea Nitrogen 4 mg/dL (7-18) L Creatinine 1.0 MG/DL (0.55-1.30) Estimat Glomerular Filtration Rate > 60 mL/min (>60) Glucose Level 102 MG/DL (74-106) Calcium Level 6.3 MG/DL (8.5-10.1) L Microbiology Date/Time Source Procedure Growth Status 12/25/19 10:25 Blood Blood Culture - Preliminary NO GROWTH AFTER 24 HOURS Resulted 12/25/19 10:15 Blood Blood Culture - Preliminary NO GROWTH AFTER 24 HOURS Resulted Intake and Output 12/26/19 12/27/19 19:00 07:00 Intake Total 1600.000 ml 2400.000 ml Balance 1600.000 ml 2400.000 ml Intake Oral 1450 ml IV Total 800.000 ml 950.000 ml Other 800 ml # Voids 3 Objective PHYSICAL EXAMINATION: GENERAL: The patient is awake, responsive, in no acute distress. HEAD AND NECK: Pupils are equal and reactive to light. Anicteric. Neck was supple. No JVD. LUNGS: Clear. No wheezing or rales. HEART: S1, S2. Regular rhythm. No gallops. ABDOMEN: Soft, nondistended, and nontender. Positive bowel sounds. Bilateral flank tenderness on deep palpation. No rebound tenderness. No fluid shift. EXTREMITIES: No cyanosis, clubbing, or edema. NEUROLOGIC: Cranial nerves II through XII are grossly intact. Motor is 5/5 in all extremities. Gait is intact. RECTAL/GENITOURINARY: Refused and deferred. PSYCHIATRIC: Mood and affect is intact. Assessment/Plan Assessment/Plan ASSESSMENT: 1. Upper respiratory, most likely secondary to viral syndrome. 2. Abnormal liver function, possible due to pancreatitis. 3. Hypertension. 4. Hypoparathyroidism. 5. Acute kidney injury on chronic renal insufficiency. 6. Dehydration. 7. Hypokalemia. 8. Hypocalcemia. 9. UTI=Staph Sp 10. Pancreatitis 11. Hypocalcemia PLAN: 1. Admit the patient to medical floor. 2. We will follow up with thelaboratory as well as culture. 3. antibiotic = Zosyn 4. DVT prophylaxis, heparin subcutaneous. 5.Code status is Full Code. 6. Dr. Loya = Gastroenterology, 7. Dr. Mcintosh= Infectious Disease, 8. Dr. Oleary =Pulmonary Critical Care, and we 9. Calcium supplement 10. Advance to cardiac diet Fidel Olvera MD Dec 27, 2019 19:06
--- NOTE | 2019-12-27 19:29 | NUR ---
HAND-OFF: Report given to RN Minsu.
--- NOTE | 2019-12-27 19:30 | NUR ---
NURSE NOTES: Received report from PARTHA Thomas. Patient a/a/o x 4, breathing unlabored on room air without distress. Denies discomfort at this time. IV noted on left hand intact, clean, and patent running IVF as ordered. Bed placed at the lowest with alarm, brake, and siderails up for safety. Call light placed within reach. Will continue to monitor.
[2019-12-27 20:00] VITALS: BP 145/86
[2019-12-27] MEDS: ALPRAZolam 0.5mg tab ORAL PRN (23:18)
[2019-12-28] VITALS: BP 142/98
--- NOTE | 2019-12-28 02:00 | NUR ---
NURSE NOTES: Patient said patient felt warm. Checked temperature orally, reading 99.5. Provided cold wash cloth and fresh ice water. Will continue to monitor.
[2019-12-28] MEDS: Albuterol 90mcg Inhaler 8gm INH SCH ×3 (02:36→12:33)
[2019-12-28 04:00] VITALS: BP 111/83
[2019-12-28] MEDS: D5 1/2NS 1,000 ML IV SCH (04:07)
[2019-12-28] MEDS: Morphine Sulfate 2mg/ml Inj(IV/IM USE ONLY) IVP PRN ×2 (06:31→13:46)
[2019-12-28 06:48] LABS: BASOPHILS % (AUTO) 1.5 % (0.0-2.0); EOSINOPHILS % (AUTO) 4.2 % (0.0-3.0); HEMATOCRIT 38.1 % (37.0-47.0); HEMOGLOBIN 13.7 G/DL (12.0-16.0); LYMPHOCYTES % (AUTO) 37.1 % (20.0-45.0); MEAN CORPUSCULAR VOLUME 100 FL (80-99); MONOCYTES % (AUTO) 11.8 % (1.0-10.0); NEUTROPHILS % (AUTO) 45.4 % (45.0-75.0); PLATELET COUNT 151 K/UL (150-450); RED BLOOD COUNT 3.82 M/UL (4.20-5.40); RED CELL DISTRIBUTION WIDTH 11.8 % (11.6-14.8); WHITE BLOOD COUNT 5.7 K/UL (4.8-10.8)
[2019-12-28 07:04] LABS: ALANINE AMINOTRANSFERASE 178 U/L (12-78); ALBUMIN 3.2 G/DL (3.4-5.0); ALBUMIN/GLOBULIN RATIO 0.7 (1.0-2.7); ALKALINE PHOSPHATASE 70 U/L (46-116); ANION GAP 11 mmol/L (5-15); ASPARTATE AMINO TRANSFERASE 163 U/L (15-37); BILIRUBIN,TOTAL 0.6 MG/DL (0.2-1.0); BLOOD UREA NITROGEN 5 mg/dL (7-18); CALCIUM 6.9 MG/DL (8.5-10.1); CARBON DIOXIDE 26 MMOL/L (21-32); CHLORIDE 105 MMOL/L (98-107); CREATININE 1.1 MG/DL (0.55-1.30); POTASSIUM 3.7 MMOL/L (3.5-5.1); SODIUM 142 MMOL/L (136-145)
--- NOTE | 2019-12-28 07:41 | NUR ---
HAND-OFF: Report given to PARTHA Burnette. Plan of care endorsed.
--- NOTE | 2019-12-28 07:47 | NUR ---
NURSE NOTES: Patient is alert and oriented.IV fluids infusing as ordered.Patient state she is starting to have the burning sensation when she urinates,will update Doctor.Breakfast at bedside. Call light within reach.
[2019-12-28 08:00] VITALS: BP 143/100
--- NOTE | 2019-12-28 08:16 | General Progress Note ---
Assessment/Plan Problem List: (1) HTN (hypertension) ICD Codes: I10 - Essential (primary) hypertension SNOMED: 55244920 (2) Hypokalemia ICD Codes: E87.6 - Hypokalemia SNOMED: 46299260 (3) Elevated liver enzymes ICD Codes: R74.8 - Abnormal levels of other serum enzymes SNOMED: 642723376 (4) Influenza-like syndrome ICD Codes: J11.1 - Influenza due to unidentified influenza virus with other respiratory manifestations SNOMED: 33784351, 335666120 (5) Acute gastroenteritis ICD Codes: K52.9 - Noninfective gastroenteritis and colitis, unspecified SNOMED: 66198522 (6) UTI (urinary tract infection) ICD Codes: N39.0 - Urinary tract infection, site not specified SNOMED: 79130079 Assessment/Plan: replace electrolytes stool studies>>> neg C.diff abd us>>> reviewed>>> fatty liver, post carola repeat labs hepatitis panel>>> neg abx per ID replace K prn imodium Subjective ROS Limited/Unobtainable: Yes Allergies: Coded Allergies: SULFA (SULFONAMIDE ANTIBIOTICS) (Verified Allergy, Unknown, 02/24/19) Objective Last 24 Hour Vital Signs Date Time Temp Pulse Resp B/P (MAP) Pulse Ox O2 Delivery O2 Flow Rate FiO2 12/28/19 07:00 88 18 95 Room Air 12/28/19 07:00 87 18 95 Room Air 12/28/19 04:00 98.1 87 20 111/83 (92) 99 12/28/19 02:00 80 20 96 Room Air 12/28/19 02:00 82 20 98 Room Air 21 12/28/19 00:00 99.0 89 20 142/98 (113) 97 12/27/19 21:00 Room Air 12/27/19 20:00 97.9 82 20 145/86 (105) 97 12/27/19 20:00 85 20 98 Room Air 12/27/19 20:00 86 20 100 Room Air 21 12/27/19 17:20 97.7 12/27/19 16:00 97.7 98 18 166/110 (128) 99 12/27/19 13:49 87 20 99 Room Air 21 12/27/19 13:49 88 20 99 Room Air 21 12/27/19 11:17 148/106 12/27/19 09:00 Room Air Intake and Output 12/27/19 12/28/19 19:00 07:00 Intake Total 825 ml 825 ml Balance 825 ml 825 ml IV Total 75 ml 825 ml Other 750 ml # Voids 3 # Bowel Movements 1 Laboratory Tests 12/28/19 06:15: White Blood Count 5.7, Red Blood Count 3.82L, Hemoglobin 13.7, Hematocrit 38.1, Mean Corpuscular Volume 100H, Mean Corpuscular Hemoglobin 35.8H, Mean Corpuscular Hemoglobin Concent 35.9, Red Cell Distribution Width 11.8, Platelet Count 151, Mean Platelet Volume 6.4L, Neutrophils (%) (Auto) 45.4, Lymphocytes ( %) (Auto) 37.1, Monocytes (%) (Auto) 11.8H, Eosinophils (%) (Auto) 4.2H, Basophils (%) (Auto) 1.5, Sodium Level 142, Potassium Level 3.7, Chloride Level 105, Carbon Dioxide Level 26, Anion Gap 11, Blood Urea Nitrogen 5L, Creatinine 1.1, Estimat Glomerular Filtration Rate 53.9, Glucose Level 110H, Calcium Level 6.9L, Total Bilirubin 0.6, Aspartate Amino Transf (AST/SGOT) 163H, Alanine Aminotransferase (ALT/SGPT) 178H, Alkaline Phosphatase 70, Total Protein 7.7, Albumin 3.2L, Globulin 4.5, Albumin/Globulin Ratio 0.7L Height (Feet): 5 Height (Inches): 4.00 Weight (Pounds): 190 General Appearance: alert EENT: normal ENT inspection Neck: supple Cardiovascular: normal rate Respiratory/Chest: decreased breath sounds Abdomen: normal bowel sounds, non tender, soft Extremities: non-tender Wai Loya MD Dec 28, 2019 08:16
[2019-12-28 09:00] VITALS: BP 136/98
[2019-12-28] MEDS: Calcium Carbonate 650mg Tab ORAL SCH (09:07)
[2019-12-28] MEDS: Calcitriol 0.5mcg Cap ORAL SCH ×2 (09:08→18:00)
[2019-12-28] MEDS: Losartan 25mg tab ORAL SCH (09:08)
[2019-12-28] MEDS: Heparin 5000 units/ml inj SUBQ SCH (09:12)
--- NOTE | 2019-12-28 10:18 | Infectious Diseases Prog Note ---
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 Status post cholecystectomy.Fatty liver -acute hep panel neg YAKOV, improving -Renal US: Bilateral nonobstructive nephrolithiasis. 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 Bilateral renal cysts. Hypertension hypoparathyroidism s/p Cholecystectomy Plan: -Continue to monitor off abx -/ SP IV vancomycin #3 -12/25 SP Zosyn #2 -12/23 SP Ceftriaxone x1 -f/u cx -Monitor CBC/CMP, temperatures -f/u Bcx x2 -ok to discharge from ID stand point Thank you for this consultation. Will continue to follow along with you. Discussed with RN Subjective Allergies: Coded Allergies: SULFA (SULFONAMIDE ANTIBIOTICS) (Verified Allergy, Unknown, 02/24/19) Subjective afebrile now off abx no leukocytosis discharge planning Objective Vital Signs Last 24 Hour Vital Signs Date Time Temp Pulse Resp B/P (MAP) Pulse Ox O2 Delivery O2 Flow Rate FiO2 12/28/19 09:27 Room Air 12/28/19 09:08 136/98 12/28/19 07:00 88 18 95 Room Air 21 12/28/19 07:00 87 18 95 Room Air 12/28/19 04:00 98.1 87 20 111/83 (92) 99 12/28/19 02:00 80 20 96 Room Air 21 12/28/19 02:00 82 20 98 Room Air 21 12/28/19 00:00 99.0 89 20 142/98 (113) 97 12/27/19 21:00 Room Air 12/27/19 20:00 97.9 82 20 145/86 (105) 97 12/27/19 20:00 85 20 98 Room Air 21 12/27/19 20:00 86 20 100 Room Air 21 12/27/19 17:20 97.7 12/27/19 16:00 97.7 98 18 166/110 (128) 99 12/27/19 13:49 87 20 99 Room Air 21 12/27/19 13:49 88 20 99 Room Air 21 12/27/19 11:17 148/106 Height (Feet): 5 Height (Inches): 4.00 Weight (Pounds): 190 Objective General Appearance: WD/WN HEENT: normocephalic Respiratory/Chest: chest wall non-tender, no respiratory distress Cardiovascular: normal peripheral pulses, regular rhythm Abdomen: normal bowel sounds, soft, non tender Extremities: no cyanosis, no clubbing Skin: no lesion Microbiology Date/Time Source Procedure Growth Status 12/25/19 10:25 Blood Blood Culture - Preliminary NO GROWTH AFTER 48 HOURS Resulted 12/25/19 10:15 Blood Blood Culture - Preliminary NO GROWTH AFTER 48 HOURS Resulted Laboratory Tests Test 12/28/19 06:15 White Blood Count 5.7 K/UL (4.8-10.8) Red Blood Count 3.82 M/UL (4.20-5.40) L Hemoglobin 13.7 G/DL (12.0-16.0) Hematocrit 38.1 % (37.0-47.0) Mean Corpuscular Volume 100 FL (80-99) H Mean Corpuscular Hemoglobin 35.8 PG (27.0-31.0) H Mean Corpuscular Hemoglobin Concent 35.9 G/DL (32.0-36.0) Red Cell Distribution Width 11.8 % (11.6-14.8) Platelet Count 151 K/UL (150-450) Mean Platelet Volume 6.4 FL (6.5-10.1) L Neutrophils (%) (Auto) 45.4 % (45.0-75.0) Lymphocytes (%) (Auto) 37.1 % (20.0-45.0) Monocytes (%) (Auto) 11.8 % (1.0-10.0) H Eosinophils (%) (Auto) 4.2 % (0.0-3.0) H Basophils (%) (Auto) 1.5 % (0.0-2.0) Sodium Level 142 MMOL/L (136-145) Potassium Level 3.7 MMOL/L (3.5-5.1) Chloride Level 105 MMOL/L (98-107) Carbon Dioxide Level 26 MMOL/L (21-32) Anion Gap 11 mmol/L (5-15) Blood Urea Nitrogen 5 mg/dL (7-18) L Creatinine 1.1 MG/DL (0.55-1.30) Estimat Glomerular Filtration Rate 53.9 mL/min (>60) Glucose Level 110 MG/DL (74-106) H Calcium Level 6.9 MG/DL (8.5-10.1) L Total Bilirubin 0.6 MG/DL (0.2-1.0) Aspartate Amino Transf (AST/SGOT) 163 U/L (15-37) H Alanine Aminotransferase (ALT/SGPT) 178 U/L (12-78) H Alkaline Phosphatase 70 U/L (46-116) Total Protein 7.7 G/DL (6.4-8.2) Albumin 3.2 G/DL (3.4-5.0) L Globulin 4.5 g/dL Albumin/Globulin Ratio 0.7 (1.0-2.7) L Current Medications Medications (Trade) Dose Ordered Sig/Sung Route PRN Reason Start Time Stop Time Status Last Admin Dose Admin Acetaminophen (Tylenol) 650 mg Q4H PRN ORAL fever 12/23/19 21:30 01/22/20 21:29 Albuterol Sulfate (Proventil MDI) 2 puff Q6HRT INH 12/24/19 07:00 01/22/20 21:29 12/28/19 02:36 Alprazolam (Xanax) 1 mg Q6H PRN ORAL For Anxiety 12/23/19 23:15 12/30/19 23:14 12/27/19 23:18 Calcitriol (Rocaltrol) 1 mcg BID ORAL 12/25/19 09:00 01/23/20 17:59 12/28/19 09:08 Calcium Carbonate (Calcium Carbonate) 1,300 mg DAILY ORAL 12/25/19 10:15 01/24/20 10:14 12/28/19 09:07 Dextrose (Dextrose 50%) 25 ml Q30M PRN IV Hypoglycemia 12/23/19 21:30 01/22/20 21:29 Dextrose (Dextrose 50%) 50 ml Q30M PRN IV Hypoglycemia 12/23/19 21:30 01/22/20 21:29 Dextrose/Sodium Chloride 1,000 ml @ 75 mls/hr [id number] IV 12/23/19 22:00 01/22/20 21:59 12/28/19 04:07 Diphenhydramine HCl (Benadryl) 25 mg Q6H PRN ORAL Itching/Pruritis 12/23/19 21:30 01/22/20 21:29 Heparin Sodium (Porcine) (Heparin 5000 units/ml) 5,000 units EVERY 12 HOURS SUBQ 12/26/19 09:00 01/23/20 08:59 12/28/19 09:12 Loperamide HCl (Imodium) 2 mg Q4H PRN ORAL Diarrhea 12/27/19 09:45 01/26/20 09:44 Losartan Potassium (Cozaar) 25 mg DAILY ORAL 12/24/19 09:00 01/23/20 08:59 12/28/19 09:08 Morphine Sulfate (Morphine Sulfate) 2 mg Q4H PRN IVP moderate to severe pain 12/23/19 23:00 12/30/19 22:59 12/28/19 06:31 Nitroglycerin (Ntg) 0.4 mg Q5M X 3 DOSES PRN SL Prn Chest Pain 12/23/19 21:30 01/22/20 21:29 Ondansetron HCl (Zofran) 4 mg Q6H PRN IVP Nausea & Vomiting 12/23/19 21:30 01/22/20 21:29 12/27/19 11:23 Pantoprazole (Protonix) 40 mg DAILY ORAL 12/27/19 09:00 01/26/20 08:59 12/28/19 09:08 Polyethylene Glycol (Miralax) 17 gm HSPRN PRN ORAL Constipation 12/23/19 21:30 01/22/20 21:29 Temazepam (Restoril) 15 mg HSPRN PRN ORAL Insomnia 12/23/19 21:30 12/30/19 21:29 12/24/19 20:55 Zita Mcintosh M.D. Dec 28, 2019 10:18
[2019-12-28 12:00] VITALS: BP 130/90
[2019-12-28] MEDS: Phenazopyridine 200mg tab ORAL SCH ×2 (13:34→18:00)
[2019-12-28 14:22] LABS: APPEARANCE,URINE SLIGHTLY CLOUDY; BILIRUBIN, URINE NEGATIVE (NEGATIVE); COLOR,URINE PALE YELLOW; GLUCOSE, URINE (UA) NEGATIVE (NEGATIVE); KETONES,URINE NEGATIVE (NEGATIVE); LEUKOCYTE ESTERASE ,URINE NEGATIVE (NEGATIVE); NITRITE,URINE NEGATIVE (NEGATIVE); PH,URINE 6.5 (4.5-8.0); PROTEIN,URINE NEGATIVE (NEGATIVE); UROBILINOGEN,URINE NORMAL MG/DL (0.0-1.0)
--- NOTE | 2019-12-28 15:31 | NUR ---
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 97.7 HR 93 RR 20 B/P 130/90 CA 6.9 AST 163 ALT 178 IS: IVF D5NS @ 75ML/HR HEPARIN SUBC PYRIDIUM PO MED/SURG STATUS
[2019-12-28 16:00] VITALS: BP 147/95
--- NOTE | 2019-12-28 16:42 | Internal Med Progress Note ---
Subjective Date of Service: Dec 28, 2019 Physician Name Fidel Olvera Attending Physician Karl Houston MD Current Medications Medications (Trade) Dose Ordered Sig/Sung Route PRN Reason Start Time Stop Time Status Last Admin Dose Admin Acetaminophen (Tylenol) 650 mg Q4H PRN ORAL fever 12/23/19 21:30 01/22/20 21:29 Albuterol Sulfate (Proventil MDI) 2 puff Q6HRT INH 12/24/19 07:00 01/22/20 21:29 12/28/19 12:33 Alprazolam (Xanax) 1 mg Q6H PRN ORAL For Anxiety 12/23/19 23:15 12/30/19 23:14 12/27/19 23:18 Calcitriol (Rocaltrol) 1 mcg BID ORAL 12/25/19 09:00 01/23/20 17:59 12/28/19 09:08 Calcium Carbonate (Calcium Carbonate) 1,300 mg DAILY ORAL 12/25/19 10:15 01/24/20 10:14 12/28/19 09:07 Dextrose (Dextrose 50%) 25 ml Q30M PRN IV Hypoglycemia 12/23/19 21:30 01/22/20 21:29 Dextrose (Dextrose 50%) 50 ml Q30M PRN IV Hypoglycemia 12/23/19 21:30 01/22/20 21:29 Dextrose/Sodium Chloride 1,000 ml @ 75 mls/hr [id number] IV 12/23/19 22:00 01/22/20 21:59 12/28/19 04:07 Diphenhydramine HCl (Benadryl) 25 mg Q6H PRN ORAL Itching/Pruritis 12/23/19 21:30 01/22/20 21:29 Heparin Sodium (Porcine) (Heparin 5000 units/ml) 5,000 units EVERY 12 HOURS SUBQ 12/26/19 09:00 01/23/20 08:59 12/28/19 09:12 Loperamide HCl (Imodium) 2 mg Q4H PRN ORAL Diarrhea 12/27/19 09:45 01/26/20 09:44 Losartan Potassium (Cozaar) 25 mg DAILY ORAL 12/24/19 09:00 01/23/20 08:59 12/28/19 09:08 Morphine Sulfate (Morphine Sulfate) 2 mg Q4H PRN IVP moderate to severe pain 12/23/19 23:00 12/30/19 22:59 12/28/19 13:46 Nitroglycerin (Ntg) 0.4 mg Q5M X 3 DOSES PRN SL Prn Chest Pain 12/23/19 21:30 01/22/20 21:29 Ondansetron HCl (Zofran) 4 mg Q6H PRN IVP Nausea & Vomiting 12/23/19 21:30 01/22/20 21:29 12/27/19 11:23 Pantoprazole (Protonix) 40 mg DAILY ORAL 12/27/19 09:00 01/26/20 08:59 12/28/19 09:08 Phenazopyridine HCl (Pyridium) 200 mg THREE TIMES A DAY ORAL 12/28/19 13:00 01/27/20 12:59 12/28/19 13:34 Polyethylene Glycol (Miralax) 17 gm HSPRN PRN ORAL Constipation 12/23/19 21:30 01/22/20 21:29 Temazepam (Restoril) 15 mg HSPRN PRN ORAL Insomnia 12/23/19 21:30 12/30/19 21:29 12/24/19 20:55 Allergies: Coded Allergies: SULFA (SULFONAMIDE ANTIBIOTICS) (Verified Allergy, Unknown, 02/24/19) ROS Limited/Unobtainable: No Constitutional: Reports: no symptoms HEENT: Reports: no symptoms Cardiovascular: Reports: no symptoms Respiratory: Reports: no symptoms Gastrointestinal/Abdominal: Reports: no symptoms Genitourinary: Reports: no symptoms Neurologic/Psychiatric: Reports: no symptoms Subjective 44 YO F admitted with nausea, vomiting and diarrhea. Now pancreatitis and UTI. Cover for Int Tian-Dr Houston. Tolerating diet Objective Last Vital Signs Date Time Temp Pulse Resp B/P (MAP) Pulse Ox O2 Delivery O2 Flow Rate FiO2 12/28/19 12:33 87 18 97 Room Air 21 12/28/19 12:00 97.7 130/90 (103) Laboratory Tests Test 12/28/19 06:15 12/28/19 13:30 White Blood Count 5.7 K/UL (4.8-10.8) Red Blood Count 3.82 M/UL (4.20-5.40) L Hemoglobin 13.7 G/DL (12.0-16.0) Hematocrit 38.1 % (37.0-47.0) Mean Corpuscular Volume 100 FL (80-99) H Mean Corpuscular Hemoglobin 35.8 PG (27.0-31.0) H Mean Corpuscular Hemoglobin Concent 35.9 G/DL (32.0-36.0) Red Cell Distribution Width 11.8 % (11.6-14.8) Platelet Count 151 K/UL (150-450) Mean Platelet Volume 6.4 FL (6.5-10.1) L Neutrophils (%) (Auto) 45.4 % (45.0-75.0) Lymphocytes (%) (Auto) 37.1 % (20.0-45.0) Monocytes (%) (Auto) 11.8 % (1.0-10.0) H Eosinophils (%) (Auto) 4.2 % (0.0-3.0) H Basophils (%) (Auto) 1.5 % (0.0-2.0) Sodium Level 142 MMOL/L (136-145) Potassium Level 3.7 MMOL/L (3.5-5.1) Chloride Level 105 MMOL/L (98-107) Carbon Dioxide Level 26 MMOL/L (21-32) Anion Gap 11 mmol/L (5-15) Blood Urea Nitrogen 5 mg/dL (7-18) L Creatinine 1.1 MG/DL (0.55-1.30) Estimat Glomerular Filtration Rate 53.9 mL/min (>60) Glucose Level 110 MG/DL (74-106) H Calcium Level 6.9 MG/DL (8.5-10.1) L Total Bilirubin 0.6 MG/DL (0.2-1.0) Aspartate Amino Transf (AST/SGOT) 163 U/L (15-37) H Alanine Aminotransferase (ALT/SGPT) 178 U/L (12-78) H Alkaline Phosphatase 70 U/L (46-116) Total Protein 7.7 G/DL (6.4-8.2) Albumin 3.2 G/DL (3.4-5.0) L Globulin 4.5 g/dL Albumin/Globulin Ratio 0.7 (1.0-2.7) L Urine Color Pale yellow Urine Appearance Slightly cloudy Urine pH 6.5 (4.5-8.0) Urine Specific [place] 1.010 (1.005-1.035) Urine Protein Negative (NEGATIVE) Urine Glucose (UA) Negative (NEGATIVE) Urine Ketones Negative (NEGATIVE) Urine Blood 1+ (NEGATIVE) H Urine Nitrite Negative (NEGATIVE) Urine Bilirubin Negative (NEGATIVE) Urine Urobilinogen Normal MG/DL (0.0-1.0) Urine Leukocyte Esterase Negative (NEGATIVE) Urine RBC 2-4 /HPF (0 - 2) H Urine WBC 0-2 /HPF (0 - 2) Urine Squamous Epithelial Cells Many /LPF (NONE/OCC) H Urine Bacteria Few /HPF (NONE) Intake and Output 12/27/19 12/28/19 19:00 07:00 Intake Total 825 ml 825 ml Balance 825 ml 825 ml IV Total 75 ml 825 ml Other 750 ml # Voids 3 # Bowel Movements 1 Objective PHYSICAL EXAMINATION: GENERAL: The patient is awake, responsive, in no acute distress. HEAD AND NECK: Pupils are equal and reactive to light. Anicteric. Neck was supple. No JVD. LUNGS: Clear. No wheezing or rales. HEART: S1, S2. Regular rhythm. No gallops. ABDOMEN: Soft, nondistended, and nontender. Positive bowel sounds. Bilateral flank tenderness on deep palpation. No rebound tenderness. No fluid shift. EXTREMITIES: No cyanosis, clubbing, or edema. NEUROLOGIC: Cranial nerves II through XII are grossly intact. Motor is 5/5 in all extremities. Gait is intact. RECTAL/GENITOURINARY: Refused and deferred. PSYCHIATRIC: Mood and affect is intact. Assessment/Plan Assessment/Plan ASSESSMENT: 1. Upper respiratory, most likely secondary to viral syndrome. 2. Abnormal liver function, possible due to pancreatitis. 3. Hypertension. 4. Hypoparathyroidism. 5. Acute kidney injury on chronic renal insufficiency. 6. Dehydration. 7. Hypokalemia. 8. Hypocalcemia. 9. UTI=Staph Sp 10. Pancreatitis 11. Hypocalcemia PLAN: 1. Admit the patient to medical floor. 2. We will follow up with thelaboratory as well as culture. 3. antibiotic = S/P Zosyn 4. DVT prophylaxis, heparin subcutaneous. 5.Code status is Full Code. 6. Dr. Loya = Gastroenterology, 7. Dr. Mcintosh= Infectious Disease, 8. Dr. Oleary =Pulmonary Critical Care, and we 9. Calcium supplement 10. Advance to cardiac diet 11. Discharge home today Fidel Olvera MD Dec 28, 2019 16:42
[2019-12-28] MEDS ORDERED: PHENAZOPYRIDIN200 M1 ORAL (16:45)
--- NOTE | 2019-12-28 18:39 | NUR ---
NURSE NOTES: Patient discharged and left with her mother. Patient left alert and oriented and stable, ambulating. escorted Patient down to the front exit. Advised patient to follow up with primary MD within 7 days and notified on what signs and symptoms that require immediate intervention. Patient educted on new prescriptions by charge MD. Patient signed belongings list and discharge paperwork. Patient left with medications from pharmacy and a hardcopy of new prescription.
--- NOTE | 2019-12-30 09:38 | Discharge Summary ---
Discharge Summary Discharge Summary _ DATE OF ADMISSION: 12/23/2019 DATE OF DISCHARGE: 12/28/2019 DISCHARGED BY: Dr. Houston REASON FOR ADMISSION: 44 years old female with past medical history significant for hypertension, hyperparathyroidism, presented to emergency department complaining of generalized malaise, fatigue, cough, vomiting, diarrhea. Patient denied fever and chills. Patient was recently admitted to the hospital for upper respiratory infection . Patient reported nausea , vomiting , and diarrhea for 2 days. She denied bloody stools. She denied loss of consciousness. Shortly after initial evaluation emergency department patient was admitted to the hospital with upper respiratory infection, possible acute gastroenteritis and urinary tract infection. CONSULTANTS: pulmonary/critical care Dr. Oleary ID specialist Dr. Mcintosh GI specialist Dr. Loya [facility] COURSE: Patient admitted to medical surgical floor and started on empiric antibiotic as per ID specialist recommendation. DVT prophylaxis provided. Urine culture revealed Staph [place]. Stool for C. difficile was negative. Stool culture was negative. Influenza swab was negative. Blood cultures were negative. Patient had no leukocytosis, no fevers. Patient completed treatment for urinary tract infection while in the hospital. Renal ultrasound revealed bilateral nonobstructive nephrolithiasis. 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 Bilateral renal cysts. Renal parameters and electrolytes were closely monitored. Electrolytes corrected. Nephrotoxins were avoided. Creatinine from 1.4 down to 1.1 prior to discharge. Potassium was replaced, prior to discharge 3.7. Calcium supplements provided, calcium improved. LFT were closely monitored. Hepatitis panel was negative. Abdominal ultrasound demonstrated fatty liver , status post cholecystectomy. Lipase initially 444 , trended down. Patient likely had acute gastroenteritis and was treated symptomatically. Imodium and antiemetic provided as needed. Patient was able to tolerate diet. Patient clinically stabilized and was ready for discharge home. FINAL DIAGNOSES: Influenza-like symptoms Acute kidney injury resolved UTI , status post treatment Dehydration Acute gastroenteritis Electrolyte abnormality Abnormal liver function test possibly due to pancreatitis or gastroenteritis Hypertension Hyperparathyroidism DISCHARGE MEDICATIONS: See Medication Reconciliation list. DISCHARGE INSTRUCTIONS: Patient was discharged home. Follow-up with a primary care provider in 1 week. I have been assigned to dictate discharge summary for this account. I was not involved in the patient's management. Salima Vázquez NP Dec 30, 2019 09:38
--- NOTE | 2019-12-30 14:35 | NUR ---
*-* INSURANCE *-* ALL CLINICALS AND REVIEWS HAVE BEEN FAXED TO: POORNIMA DUFFY:SURYA angel# [id number] P; [phone] F: [phone]
== END 2019-12-28 18:57 | disposition home or self-care (01) | DRG 682 ==
LOC: CANBEDREQ 15:38 → EMR 15:40 → 4E 18:00 → EDBEDREQ 21:49
DX: N17.9 Acute kidney failure, unspecified (principal); K85.90 Acute pancreatitis without necrosis or infection, unspecified; N39.0 Urinary tract infection, site not specified; K52.9 Noninfective gastroenteritis and colitis, unspecified; I10 Essential (primary) hypertension; Z88.2 Allergy status to sulfonamides; E86.0 Dehydration; E87.6 Hypokalemia; N20.0 Calculus of kidney; E21.3 Hyperparathyroidism, unspecified; B95.8 Unspecified staphylococcus as the cause of diseases classified elsewhere; J06.9 Acute upper respiratory infection, unspecified
CPT/HCPCS: 36415; 71045; 76700; 76770; 80048; 80053; 80202; 81001; 81003; 81025; 82043; 82150; 82550; 83690; 83735; 83935; 84100; 84300; 84484; 84550; 85025; 85651; 85730; 86140; 86705; 86709; 86710; 86803; 87040; 87045; 87086; 87181; 87324; 87340; 89050; 93005; 94640; 96361; 96365; 96375; 96376; 99285; J2405; J7030; J8499

== ENCOUNTER 2020-04-03 09:46 | Emergency (ER) | payer MEDICAID ==
[~2020-04-03] VITALS: Ht 162.6 cm; Wt 90.7 kg
[~2020-04-03 09:46] MED LIST changes: +PHENAZOPYRIDIN200 M1 ORAL
[2020-04-03] MEDS ORDERED: KLONOPIN1 MG ORAL (09:57)
[2020-04-03 10:03] VITALS: BP 130/79
--- NOTE | 2020-04-03 10:03 | NUR ---
ED Nurse Note:pt. came with c/o lower back pain for 3 weeks , reports possible kidney stone, no injury, ambulatory, A/Ox4
[2020-04-03] MEDS ORDERED: Methocarbamol 750mg tab ORAL ONE (10:15)
[2020-04-03] MEDS ORDERED: Tylenol #3 tab (300mg/30mg) ORAL ONE (10:15)
--- NOTE | 2020-04-03 10:17 | NUR ---
ED Nurse Note:urine sent to labs, given pain meds
[2020-04-03 11:02] LABS: APPEARANCE,URINE SLIGHTLY CLOUDY; BILIRUBIN, URINE NEGATIVE (NEGATIVE); COLOR,URINE PALE YELLOW; GLUCOSE, URINE (UA) NEGATIVE (NEGATIVE); KETONES,URINE NEGATIVE (NEGATIVE); LEUKOCYTE ESTERASE ,URINE 2+ (NEGATIVE); NITRITE,URINE NEGATIVE (NEGATIVE); PH,URINE 6 (4.5-8.0); PROTEIN,URINE 2+ (NEGATIVE); UROBILINOGEN,URINE NORMAL MG/DL (0.0-1.0)
--- NOTE | 2020-04-03 11:04 | Emergency Room Report ---
History of Present Illness General Chief Complaint: Lower Back Pain or Injury Source: Patient Present Illness HPI 44-year-old female presents ED complaining of back pain. Has been having back pain for the last 4 weeks. Has been taking ibuprofen which she states helps somewhat but is now causing her an upset stomach. Denies any fall or injury. Pain is dull, 6 out of 10, left leg. Denies any bowel or bladder incontinence. Denies any leg or motor weakness. Seen by her PMD last week. Noted to have blood in her urine. Worried about kidney stones. Denies any flank pain. No other aggravating relieving factors. Denies any other associated symptoms Allergies: Coded Allergies: SULFA (SULFONAMIDE ANTIBIOTICS) (Verified Allergy, Unknown, 02/24/19) COVID-19 Screening Contact w/high risk pt: No Recent Travel to affected area: No Experienced COVID-19 symptoms?: No Patient History Past Medical History: GERD Past Surgical History: none Pertinent Family History: none Social History: Denies: smoking, alcohol use, drug use Last Menstrual Period: 4-28 Now: No Immunizations: UTD Reviewed Nursing Documentation: PMH: Agreed; PSxH: Agreed Nursing Documentation-PMH Past Medical History: No History, Except For Hx Cardiac Problems: Yes - Hypoparathyroidism Hx Hypertension: Yes Hx Pacemaker: No Hx Asthma: No Hx COPD: No Hx Diabetes: No Hx Cancer: No Hx Gastrointestinal Problems: Yes Hx Dialysis: No Hx Neurological Problems: No Hx Cerebrovascular Accident: No Hx Seizures: No Review of Systems All Other Systems: negative except mentioned in HPI Physical Exam Vital Signs Date Time Temp Pulse Resp B/P (MAP) Pulse Ox O2 Delivery O2 Flow Rate FiO2 04/03/20 09:49 98.4 125 20 130/79 (96) 98 Room Air Sp02 EP Interpretation: reviewed, normal General Appearance: no apparent distress, alert, GCS 15, non-toxic Head: normocephalic, atraumatic Eyes: bilateral eye normal inspection, bilateral eye PERRL ENT: hearing grossly normal, normal pharynx, no angioedema, normal voice Neck: full range of motion, supple/symm/no masses Respiratory: chest non-tender, lungs clear, normal breath sounds, speaking full sentences Cardiovascular #1: regular rate, rhythm, no edema Cardiovascular #2: 2+ carotid (R), 2+ carotid (L), 2+ radial (R), 2+ radial (L) , 2+ dorsalis pedis (R), 2+ dorsalis pedis (L) Gastrointestinal: normal bowel sounds, non tender, soft, non-distended, no guarding, no rebound Rectal: deferred Genitourinary: normal inspection, no CVA tenderness Musculoskeletal: back normal, normal range of motion, gait/station normal, tender - paraspinal lumbar tenderness Neurologic: alert, motor strength/tone normal, oriented x3, sensory intact, responsive, speech normal Psychiatric: judgement/insight normal, memory normal, mood/affect normal, no suicidal/homicidal ideation Reflexes: 3+ bicep (R), 3+ bicep (L), 3+ tricep (R), 3+ tricep (L), 3+ knee (R) , 3+ knee (L) Skin: no rash Lymphatic: no adenopathy Medical Decision Making Diagnostic Impression: Primary Impression: Pyelonephritis Additional Impression: Low back pain Qualified Codes: M54.42 - Lumbago with sciatica, left side; G89.29 - Other chronic pain ER Course Hospital Course 44-year-old F presents to ED with low back pain. blood in urine Differential diagnosis includes-appendicitis, cholecystitis, small bowel obstruction, gastritis, Clinical course Patient placed on stretcher. After initial history and physical I ordered pain meds, UA, CT Labs - UA + bacteria + blood CT - stones in kidneys bilaterally. No obstructing uropathy. Remainder of CT unremarkable On reassessment pain improved. Discussed findings with patient. There is some consideration for a sciatica. No incontinence. No motor weakness. Patient would benefit from outpatient MRI and physical therapy. Is currently waiting for an MRI. Will prescribe antibiotics. Safe for discharge for close outpatient follow-up states she has a PMD I feel this is a highly complex case requiring extensive working including EKG/ Rhythm strip, Xray/CT/US, Blood/urine lab work, repeat exams while in ED, and administration of strong opiates/narcotics for pain control, admission to hospital or close patient follow up. Diagnosis - pyelonpehritis, low back pain Stable and discharged to home with Rx Tylenol #3, Robaxin, Lidoderm, Keflex. Followup with PMD. Return to ED if symptoms recur or worsen Labs Test 04/03/20 10:00 Urine Color Pale yellow Urine Appearance Slightly cloudy Urine pH 6 (4.5-8.0) Urine Specific [place] 1.020 (1.005-1.035) Urine Protein 2+ (NEGATIVE) Urine Glucose (UA) Negative (NEGATIVE) Urine Ketones Negative (NEGATIVE) Urine Blood 1+ (NEGATIVE) Urine Nitrite Negative (NEGATIVE) Urine Bilirubin Negative (NEGATIVE) Urine Urobilinogen Normal MG/DL (0.0-1.0) Urine Leukocyte Esterase 2+ (NEGATIVE) Urine RBC 5-10 /HPF (0 - 2) Urine WBC 30-40 /HPF (0 - 2) Urine Squamous Epithelial Cells Moderate /LPF (NONE/OCC) Urine Bacteria Few /HPF (NONE) Urine HCG, Qualitative Negative (NEGATIVE) CT/MRI/US Diagnostic Results CT/MRI/US Diagnostic Results : Imaging Test Ordered: CT A/P Impression Findings: Extensive calcification is seen in the renal medullary regions bilaterally. This corresponds to abnormalities reported on recent sonogram. Some of the calcifications may also represent calyceal calculi. There is also small calcification in the periphery of the left kidney. The lack of IV contrast limits assessment of the renal parenchyma. There is a small exophytic lesion coming off of the lower pole , probably corresponds to the small lower pole cyst described on recent sonogram although appears smaller than on that exam. There is an upper pole cyst. There are other subcentimeter low-attenuation lesions which are too small to characterize , most likely represent benign simple cysts. No ureteral calculi, hydronephrosis, or hydroureter demonstrated. Lack of IV contrast limits assessment of the other solid organs. The liver is diffusely hypoattenuating, consistent with fatty change. No focal abnormality demonstrated. The gallbladder has been removed. No biliary ductal dilatation. The pancreas, spleen, adrenals are unremarkable. There are fairly abundant and prominent but not frankly enlarged retroperitoneal and iliac chain lymph nodes noted. No pelvic mass or adenopathy. Uterus and ovaries appear unremarkable. The bladder appears unremarkable. There is a small nodule in the mesentery adjacent to the hepatic flexure of the colon, probably represents a small lymph node. There are colonic diverticula. No evidence of acute diverticulitis. The appendix is normal. No small bowel distention. No free or loculated intraperitoneal gas or fluid is evident. The included lung bases are clear. The bones are unremarkable. Impression: No acute abnormality Bilateral medullary nephrocalcinosis, also described on recent sonogram. There may be also nonobstructive calyceal calculi bilaterally. Fatty liver Colonic diverticulosis. No evidence of diverticulitis. Prior cholecystectomy Last Vital Signs Date Time Temp Pulse Resp B/P (MAP) Pulse Ox O2 Delivery O2 Flow Rate FiO2 04/03/20 10:34 98.4 04/03/20 10:03 120 20 130/79 98 Room Air Status: improved Disposition: HOME, SELF-CARE Condition: Stable Scripts Cephalexin* (KEFLEX*) 500 Mg Capsule 500 MG ORAL EVERY 6 HOURS for 7 Days, #28 CAP Prov: Nirav Richardson MD 04/03/20 Lidocaine Patch* (Lidoderm Patch*) 1 Each Adh..patch 1 PATCH TOPIC DAILY, #7 PATCH 0 Refills Patch(es) may remain in place for up to 12 hours in any 24-hour period. Prov: Nirav Richardson MD 04/03/20 Methocarbamol* (ROBAXIN-750*) 750 Mg Tablet 750 MG PO TID, #21 TAB 0 Refills Prov: Nirav Richardson MD 04/03/20 Acetaminophen With Codeine (T#3) (TYLENOL #3 TAB*) Y Tab 1 TAB ORAL Q8H PRN for For Pain, #20 TAB Prov: Nirav Richardson MD 04/03/20 Referrals: NON PHYSICIAN (PCP) Nirav Richardson MD April 03, 2020 11:04
--- NOTE | 2020-04-03 11:12 | NUR ---
ED Nurse Note: pt taken to ct
--- NOTE | 2020-04-03 11:28 | NUR ---
ED Nurse Note: back from ct
--- NOTE | 2020-04-03 11:57 | Diagnostic Imaging Report ---
Indication: Back pain, hematuria, pain 6 out of 10 Technique: Spiral acquisitions obtained through the abdomen and pelvis. No oral or IV contrast utilized, per urinary stone protocol. Multiplanar reconstructions were generated. Total dose length product 503 mGycm. CTDIvol(s) 9 mGy. Dose reduction achieved using automated exposure control Comparison: Renal ultrasound dated 12/24/[address] T [address] No [address] scans Findings: Extensive calcification is seen in the renal medullary regions bilaterally. This corresponds to abnormalities reported on recent sonogram. Some of the calcifications may also represent calyceal calculi. There is also small calcification in the periphery of the left kidney. The lack of IV contrast limits assessment of the renal parenchyma. There is a small exophytic lesion coming off of the lower pole, probably corresponds to the small lower pole cyst described on recent sonogram although appears smaller than on that exam. There is an upper pole cyst. There are other subcentimeter low-attenuation lesions which are too small to characterize, most likely represent benign simple cysts. No ureteral calculi, hydronephrosis, or hydroureter demonstrated. Lack of IV contrast limits assessment of the other solid organs. The liver is diffusely hypoattenuating, consistent with fatty change. No focal abnormality demonstrated. The gallbladder has been removed. No biliary ductal dilatation. The pancreas, spleen, adrenals are unremarkable. There are fairly abundant and prominent but not frankly enlarged retroperitoneal and iliac chain lymph nodes noted. No pelvic mass or adenopathy. Uterus and ovaries appear unremarkable. The bladder appears unremarkable. There is a small nodule in the mesentery adjacent to the hepatic flexure of the colon, probably represents a small lymph node. There are colonic diverticula. No evidence of acute diverticulitis. The appendix is normal. No small bowel distention. No free or loculated intraperitoneal gas or fluid is evident. The included lung bases are clear. The bones are unremarkable. Impression: No acute abnormality Bilateral medullary nephrocalcinosis, also described on recent sonogram. There may be also nonobstructive calyceal calculi bilaterally. Fatty liver Colonic diverticulosis. No evidence of diverticulitis. Prior cholecystectomy The CT scanner at [facility] is accredited by the [employer] and the scans are performed using protocols designed to limit radiation exposure to as low as reasonably achievable to attain images of sufficient resolution adequate for diagnostic evaluation.
[2020-04-03] MEDS ORDERED: LIDODERM700 M1 TOPIC (12:17)
[2020-04-03] MEDS ORDERED: CEPHALEXIN500 MG ORAL (12:17)
[2020-04-03] MEDS ORDERED: ACETAMINOPHEN-1 EAC1 ORAL (12:17)
[2020-04-03] MEDS ORDERED: ROBAXIN-750750 MG PO (12:17)
[2020-04-03 12:25] VITALS: BP 130/79
--- NOTE | 2020-04-03 12:25 | NUR ---
ER DISCHARGE NOTE: Patient is cleared to be discharged per ERMD, pt is aox4, on room air, with stable vital signs. pt was given dc and prescription instructions, pt was able to verbalize understanding, pt is able to ambulate with steady gait. pt took all belongings.
== END 2020-04-03 12:30 | disposition home or self-care (01) ==
LOC: EMR 10:10
DX: N12 Tubulo-interstitial nephritis, not specified as acute or chronic (principal); M54.42 Lumbago with sciatica, left side; G89.29 Other chronic pain; Z88.2 Allergy status to sulfonamides; K21.9 Gastro-esophageal reflux disease without esophagitis; I10 Essential (primary) hypertension; N20.0 Calculus of kidney; K76.0 Fatty (change of) liver, not elsewhere classified; K57.90 Diverticulosis of intestine, part unspecified, without perforation or abscess without bleeding; Z90.49 Acquired absence of other specified parts of digestive tract
CPT/HCPCS: 74176; 81003; 81025; 87086; Z7502; 99284

== ENCOUNTER 2020-06-27 12:06 | Emergency (ER) | payer MEDICAID ==
[~2020-06-27] VITALS: Ht 162.6 cm; Wt 81.6 kg
[~2020-06-27 12:06] MED LIST changes: +KLONOPIN1 MG ORAL; +LIDODERM700 M1 TOPIC; +ROBAXIN-750750 MG PO
[2020-06-27 13:04] VITALS: BP 128/84
[2020-06-27 13:38] LABS: BASOPHILS % (AUTO) 3.4 % (0.0-2.0); EOSINOPHILS % (AUTO) 1.4 % (0.0-3.0); HEMATOCRIT 48.4 % (37.0-47.0); HEMOGLOBIN 15.2 G/DL (12.0-16.0); LYMPHOCYTES % (AUTO) 39.3 % (20.0-45.0); MEAN CORPUSCULAR VOLUME 95 FL (80-99); MONOCYTES % (AUTO) 11.3 % (1.0-10.0); NEUTROPHILS % (AUTO) 44.6 % (45.0-75.0); PLATELET COUNT 317 K/UL (150-450); RED BLOOD COUNT 5.08 M/UL (4.20-5.40); RED CELL DISTRIBUTION WIDTH 13.7 % (11.6-14.8); WHITE BLOOD COUNT 5.5 K/UL (4.8-10.8)
[2020-06-27 13:56] LABS: ANION GAP 10 mmol/L (5-15); BLOOD UREA NITROGEN 8 mg/dL (7-18); CALCIUM 10.2 MG/DL (8.5-10.1); CARBON DIOXIDE 29 MMOL/L (21-32); CHLORIDE 102 MMOL/L (98-107); CREATININE 1.1 MG/DL (0.55-1.30); POTASSIUM 3.3 MMOL/L (3.5-5.1); SODIUM 141 MMOL/L (136-145)
[2020-06-27 14:08] LABS: ALANINE AMINOTRANSFERASE 87 U/L (12-78); ALBUMIN 4.4 G/DL (3.4-5.0); ALKALINE PHOSPHATASE 61 U/L (46-116); ASPARTATE AMINO TRANSFERASE 67 U/L (15-37); BILIRUBIN,TOTAL 0.2 MG/DL (0.2-1.0); CREATINE KINASE 33 U/L (26-308)
--- NOTE | 2020-06-27 15:15 | Diagnostic Imaging Report ---
Procedure: XRAY Chest 1v Reason for study: Chest pain Comparison films: 12/23/2019. FINDINGS: A single one view chest is obtained. Vascularity is normal. The lung ferris are clear bilaterally. Cardiac and mediastinal silhouette are within normal limits. CP angles are sharp. Old healed left rib fracture noted. IMPRESSION: NO ACUTE CARDIOPULMONARY DISEASE.
--- NOTE | 2020-06-27 15:35 | Emergency Room Report ---
History of Present Illness General Chief Complaint: Generalized Weakness Source: Patient Present Illness HPI Patient presents with dyspnea, slight chest discomfort and anxiety which has been worsening for several days. She is 2 days discharged from a rehab facility. Her blood pressures been fluctuating. She is taking her medications at this time. Deterioration over the last 4 days. She finds her exertional capacity is decreased. The chest pain is not described as pain but has discomfort underneath her left breast. She rates this pain is 0/10. She occasionally has sweats when she feels this way. She denies fevers or chills per se. In the past she has treated her anxiety with Klonopin. Currently she is taking Vistaril. She took a dose yesterday with minimal improvement. She also takes gabapentin for body pain at this time. Previously she was dependent on oxycodone and multiple different pain medications as she had multiple presentations with back pain prior to the spinal surgery for an epidural abscess. She had a PICC line and received multiple weeks of IV antibiotics. She denies any fevers or chills at this time. She was tested for COVID-19 a week ago and this was negative. She denies upper respiratory symptoms. She denies cough or hemoptysis. The chest pain is not pleuritic. She has a complicated history of having urinary tract infection that had a complication of a spinal abscess. She had spinal surgery in March and then chose to go into rehab for pain medication dependence. She has had multiple urinary tract infections in the past. No sore throat, palpitations, nausea, vomiting, diarrhea, dysuria, abdominal pain, joint pain, rashes, visual changes, dizziness, headache. The patient was admitted in November of this year with these discharge diagnoses: Influenza-like symptoms Acute kidney injury resolved UTI , status post treatment Dehydration Acute gastroenteritis Electrolyte abnormality Abnormal liver function test possibly due to pancreatitis or gastroenteritis Hypertension Hyperparathyroidism The patient was admitted in April 2019 with these discharge diagnoses: GI bleeding/rectal bleeding Hypokalemia Hypomagnesemia Acute gastroenteritis UTI Hypoparathyroidism Allergies: Coded Allergies: SULFA (SULFONAMIDE ANTIBIOTICS) (Verified Allergy, Unknown, 02/24/19) COVID-19 Screening Contact w/high risk pt: No Recent Travel to affected area: No Experienced COVID-19 symptoms?: No COVID-19 Testing performed INSURANCE PROFESSIONAL: No Patient History Past Medical History: see triage record, old chart reviewed Past Surgical History: other - Spinal surgery Social History: Reports: drug use - Prior opiate; Denies: smoking, alcohol use Social History Narrative child at home Last Menstrual Period: 06/20/20 Now: No Reviewed Nursing Documentation: PMH: Agreed; PSxH: Agreed Nursing Documentation-PMH Past Medical History: No History, Except For Hx Hypertension: Yes Hx Pacemaker: No Hx Asthma: No Hx COPD: No Hx Diabetes: No Hx Cancer: No Hx Gastrointestinal Problems: Yes Hx Dialysis: No Hx Neurological Problems: No Hx Cerebrovascular Accident: No Hx Seizures: No Review of Systems All Other Systems: negative except mentioned in HPI Physical Exam Vital Signs Date Time Temp Pulse Resp B/P (MAP) Pulse Ox O2 Delivery O2 Flow Rate FiO2 06/27/20 12:35 99.0 108 18 123/79 (94) 97 Room Air Sp02 EP Interpretation: reviewed, normal General Appearance: well appearing, no apparent distress, GCS 15, non-toxic Head: normocephalic Eyes: bilateral eye normal inspection, bilateral eye PERRL, bilateral eye EOMI ENT: normal pharynx, moist mucus membranes Neck: full range of motion, supple Respiratory: chest non-tender, lungs clear, normal breath sounds Cardiovascular #1: regular rate, rhythm, no edema Cardiovascular #2: 2+ radial (R) Gastrointestinal: normal inspection, normal bowel sounds, non tender, no mass, non-distended Genitourinary: no CVA tenderness Musculoskeletal: back normal, normal range of motion, digits/nails normal, no calf tenderness, gait/station normal Neurologic: alert, motor strength/tone normal, farm machinery 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 Differential includes acute myocardial infarction, pulmonary embolus, COVID-19, anxiety, electrolyte imbalance amongst others. Patient evaluated with EKG, chest x-ray and labs. Patient treated with IV hydration. Based on exam pulmonary boluses unlikely however d-dimer is performed. Complex patient with recent significant comorbidities. Initial EKG with sinus tachycardia and right axis deviation. Chest x-ray normal. Labs with normal white count. Minimal hypokalemia. Some WBCs in urine but nitrite negative. D-dimer negative. Improved with Vistaril. Due to the possibility that this could also be COVID-19 a rapid test was performed. This result was negative. Discussed results with patient. Will wait on urine culture as she has no symptoms of UTI. Patient no longer tachycardic. Of note in April 2019 the patient had right axis deviation. No medical emergency at this time. Patient stable for outpatient observation and treatment. Patient advised to have a low threshold to return if symptoms are not improving. Laboratory Tests Test 06/27/20 13:20 White Blood Count 5.5 K/UL (4.8-10.8) Red Blood Count 5.08 M/UL (4.20-5.40) Hemoglobin 15.2 G/DL (12.0-16.0) Hematocrit 48.4 % (37.0-47.0) H Mean Corpuscular Volume 95 FL (80-99) Mean Corpuscular Hemoglobin 30.0 PG (27.0-31.0) Mean Corpuscular Hemoglobin Concent 31.5 G/DL (32.0-36.0) L Red Cell Distribution Width 13.7 % (11.6-14.8) Platelet Count 317 K/UL (150-450) Mean Platelet Volume 6.9 FL (6.5-10.1) Neutrophils (%) (Auto) 44.6 % (45.0-75.0) L Lymphocytes (%) (Auto) 39.3 % (20.0-45.0) Monocytes (%) (Auto) 11.3 % (1.0-10.0) H Eosinophils (%) (Auto) 1.4 % (0.0-3.0) Basophils (%) (Auto) 3.4 % (0.0-2.0) H D-Dimer 0.49 mg/L FEU (0.00-0.49) Urine Color Pale yellow Urine Appearance Clear Urine pH 7 (4.5-8.0) Urine Specific [place] 1.010 (1.005-1.035) Urine Protein Negative (NEGATIVE) Urine Glucose (UA) Negative (NEGATIVE) Urine Ketones Negative (NEGATIVE) Urine Blood Negative (NEGATIVE) Urine Nitrite Negative (NEGATIVE) Urine Bilirubin Negative (NEGATIVE) Urine Urobilinogen Normal MG/DL (0.0-1.0) Urine Leukocyte Esterase 2+ (NEGATIVE) H Urine RBC 2-4 /HPF (0 - 2) H Urine WBC 20-30 /HPF (0 - 2) H Urine Squamous Epithelial Cells Few /LPF (NONE/OCC) Urine Bacteria Many /HPF (NONE) H Sodium Level 141 MMOL/L (136-145) Potassium Level 3.3 MMOL/L (3.5-5.1) L Chloride Level 102 MMOL/L (98-107) Carbon Dioxide Level 29 MMOL/L (21-32) Anion Gap 10 mmol/L (5-15) Blood Urea Nitrogen 8 mg/dL (7-18) Creatinine 1.1 MG/DL (0.55-1.30) Estimated Glomerular Filtration Rate 53.9 mL/min (>60) Glucose Level 108 MG/DL (74-106) H Calcium Level 10.2 MG/DL (8.5-10.1) H Total Bilirubin 0.2 MG/DL (0.2-1.0) Aspartate Amino Transferase (AST) 67 U/L (15-37) H Alanine Aminotransferase (ALT) 87 U/L (12-78) H Alkaline Phosphatase 61 U/L (46-116) Total Creatine Kinase 33 U/L (26-308) Total Protein 8.8 G/DL (6.4-8.2) H Albumin 4.4 G/DL (3.4-5.0) Globulin 4.4 g/dL Albumin/Globulin Ratio 1.0 (1.0-2.7) Thyroid Stimulating Hormone (TSH) 0.701 uiU/mL (0.358-3.740) Salicylates Level 3.2 ug/mL (2.8-20) Urine Opiates Screen Negative (NEGATIVE) Acetaminophen Level < 2 MCG/ML (10-30) L Urine Barbiturates Screen Positive (NEGATIVE) H Phencyclidine (PCP) Screen Negative (NEGATIVE) Urine Amphetamines Screen Negative (NEGATIVE) Urine Benzodiazepines Screen Negative (NEGATIVE) Urine Cocaine Screen Negative (NEGATIVE) Urine Marijuana (THC) Screen Positive (NEGATIVE) H Serum Alcohol < 3 mg/dL Microbiology Date/Time Source Procedure Growth Status 06/27/20 15:45 Nasopharynx SARS-CoV-2 RdRp Gene Assay - Final Complete EKG Diagnostic Results Rate: tachycardiac Rhythm: NSR ST Segments: no acute changes - Right axis deviation Rhythm Strip Diag. Results EP Interpretation: yes Rhythm: no PVC's, no ectopy, other - Sinus tachycardia Chest X-Ray Diagnostic Results Chest X-Ray Diagnostic Results : Chest X-Ray Ordered: Yes # of Views/Limited/Complete: 1 View Indication: Other EP Interpretation: Yes Interpretation: no consolidation, no effusion, no pneumothorax Impression: No acute disease Electronically Signed by: Electronically signed by Dino Blue MD Last Vital Signs Date Time Temp Pulse Resp B/P (MAP) Pulse Ox O2 Delivery O2 Flow Rate FiO2 06/27/20 17:23 98.8 88 18 124/79 99 Room Air Status: improved Disposition: HOME, SELF-CARE Condition: Improved Scripts Diphenhydramine Hcl (BENADRYL ALLERGY) 25 Mg Tablet 25 MG PO Q6HR PRN for anxiety, #10 TAB Prov: Dino Blue MD 06/27/20 Referrals: NON PHYSICIAN (PCP) Dino Blue MD Jun 27, 2020 15:35
[2020-06-27] MEDS ORDERED: ZOFRAN4 M3 ORAL (16:04)
[2020-06-27] MEDS ORDERED: HYDROXYZINE PA100 MG ORAL (16:04)
[2020-06-27] MEDS ORDERED: ROCATROL0.25 MCG ORAL (16:04)
[2020-06-27] MEDS ORDERED: LOPERAMIDE2 MG PO (16:04)
[2020-06-27] MEDS ORDERED: GABAPENTIN100 MG ORAL (16:04)
[2020-06-27] MEDS ORDERED: COZAAR50 MG ORAL (16:04)
[2020-06-27] MEDS ORDERED: QUETIAPINE FUMA50 MG ORAL (16:04)
[2020-06-27 16:51] LABS: APPEARANCE,URINE CLEAR; BILIRUBIN, URINE NEGATIVE (NEGATIVE); COLOR,URINE PALE YELLOW; GLUCOSE, URINE (UA) NEGATIVE (NEGATIVE); KETONES,URINE NEGATIVE (NEGATIVE); LEUKOCYTE ESTERASE ,URINE 2+ (NEGATIVE); NITRITE,URINE NEGATIVE (NEGATIVE); PH,URINE 7 (4.5-8.0); PROTEIN,URINE NEGATIVE (NEGATIVE); UROBILINOGEN,URINE NORMAL MG/DL (0.0-1.0)
[2020-06-27] MEDS ORDERED: BENADRYL ALLERG25 M1 PO (17:03)
[2020-06-27 17:23] VITALS: BP 124/79
== END 2020-06-27 17:23 | disposition home or self-care (01) ==
LOC: EMR 13:10
DX: R06.00 Dyspnea, unspecified (principal); R07.9 Chest pain, unspecified; R00.0 Tachycardia, unspecified; E87.6 Hypokalemia; I10 Essential (primary) hypertension; F41.9 Anxiety disorder, unspecified; Z88.2 Allergy status to sulfonamides
CPT/HCPCS: 36415; 71045; 80053; 80307; 81003; 82550; 84443; 85025; 85379; 87086; 93005; 96360; 96361; G0480; G0481; U0002; Z7502; 99284

== ENCOUNTER 2020-08-04 11:51 | Emergency (ER) | payer MEDICAID ==
[~2020-08-04] VITALS: Ht 162.6 cm; Wt 81.6 kg
[~2020-08-04 11:51] MED LIST changes: +BENADRYL ALLERG25 M1 PO; +COZAAR50 MG ORAL; +GABAPENTIN100 MG ORAL; +HYDROXYZINE PA100 MG ORAL; +LOPERAMIDE2 MG PO; +QUETIAPINE FUMA50 MG ORAL; +ZOFRAN4 M3 ORAL
[2020-08-04 12:09] VITALS: BP 121/78
--- NOTE | 2020-08-04 12:40 | Emergency Room Report ---
History of Present Illness General Chief Complaint: Lower Back Pain or Injury Present Illness HPI Patient is a 44-year-old female presents after increased low back pain. Reports having a recent fall approximately 5 days prior to arrival. Had reportedly had increased pain to the sacral area. Denies any bowel or bladder dysfunction. Reports having some diarrhea. Prior history of low back surgery. States she fell from standing onto hardwood floor. Denies any bloody stools. Allergies: Coded Allergies: SULFA (SULFONAMIDE ANTIBIOTICS) (Verified Allergy, Unknown, 02/24/19) COVID-19 Screening Contact w/high risk pt: No Recent Travel to affected area: No Experienced COVID-19 symptoms?: No COVID-19 Testing performed SURGICAL ASSIST: No Patient History Past Medical History: see triage record Last Menstrual Period: 07/21/2020 Now: No Reviewed Nursing Documentation: PMH: Agreed; PSxH: Agreed Nursing Documentation-PMH Hx Hypertension: Yes Hx Pacemaker: No Hx Asthma: No Hx COPD: No Hx Diabetes: No Hx Cancer: No Hx Gastrointestinal Problems: Yes Hx Dialysis: No Hx Neurological Problems: No Hx Cerebrovascular Accident: No Hx Seizures: No Review of Systems All Other Systems: negative except mentioned in HPI Physical Exam Vital Signs Date Time Temp Pulse Resp B/P (MAP) Pulse Ox O2 Delivery O2 Flow Rate FiO2 08/04/20 11:53 98.2 117 22 121/78 (92) 94 Room Air Sp02 EP Interpretation: reviewed, normal General Appearance: normal inspection, well appearing, no apparent distress, alert, GCS 15 Head: atraumatic ENT: normal ENT inspection, hearing grossly normal, normal voice Neck: normal inspection, full range of motion, supple, no bony tend Respiratory: normal inspection, lungs clear, normal breath sounds, no respiratory distress, no retraction, no wheezing Cardiovascular #1: regular rate, rhythm, no edema Gastrointestinal: normal inspection, normal bowel sounds, non tender, soft, no guarding, no hernia Genitourinary: no CVA tenderness Musculoskeletal: normal inspection, back normal, normal range of motion Neurologic: alert, motor strength/tone normal, tip puncher III-XII nml as tested, oriented x3, sensory intact, responsive, speech normal, normal inspection Psychiatric: normal inspection, judgement/insight normal, mood/affect normal Medical Decision Making Diagnostic Impression: Primary Impression: Acute gastroenteritis ER Course Patient presented for low back pain. Differential diagnosis include was not limited to contusion, fracture, gastroenteritis, among others. Patient was noted to have normal neurologic exam and does not appear to have any evidence of significant external trauma. She has some slight diffuse tenderness and states that she been having diarrhea for several days. She is able to tolerate oral fluids well. She had not been having any reported episodes of rectal bleeding. Patient was noted to have benign exam does not appear to require any laboratory testing at this time. Patient be discharged home and given prescription for medications for symptomatic management. She is advised to follow-up with her primary care physician for recheck. She is to return if worse. The patient is advised to follow up with primary care doctor in 1-2 days. Patient is advised to return if any worsening condition or if any changes in status that are concerning. This report is dictated with [employer] interactive media specialist software which may occasionally lead to discrepancies related to use of this software. Last Vital Signs Date Time Temp Pulse Resp B/P (MAP) Pulse Ox O2 Delivery O2 Flow Rate FiO2 08/04/20 12:09 98.2 111 22 121/78 96 Room Air Status: improved Disposition: HOME, SELF-CARE Scripts Omeprazole (OMEPRAZOLE) 20 Mg Capsule. 20 MG ORAL DAILY, #30 CAP Prov: Trever Thomason MD 08/04/20 Loperamide HCl (Loperamide) 2 Mg Capsule 2 MG ORAL Q4H, #20 CAP 0 Refills Prov: Trever Thomason MD 08/04/20 Referrals: [facility],REFERRING (PCP) Trever Thomason MD Aug 04, 2020 12:40
[2020-08-04] MEDS ORDERED: Acetaminophen 500mg (ES) tab ORAL ONE ×2 (12:45→12:47)
[2020-08-04] MEDS ORDERED: Dicyclomine HCl 10mg/5ml oral soln ORAL ONE (12:45)
[2020-08-04] MEDS ORDERED: IMODIUM2 MG ORAL (13:32)
[2020-08-04] MEDS ORDERED: OMEPRAZOLE20 M2 ORAL (13:32)
[2020-08-04 13:45] VITALS: BP 125/77
--- NOTE | 2020-08-04 16:20 | Diagnostic Imaging Report ---
Indication: Back pain Technique: 3 views of the lumbar spine Comparison: None Findings: Bony alignment is normal. Vertebral body heights are preserved. There is degenerative disc narrowing at L5-S1. The remaining disc spaces are preserved. No acute fractures. No dislocations. Soft tissue calcifications in the upper abdomen are demonstrated on prior CT scan to be within the kidneys Impression: Degenerative changes. No acute bony trauma
[2020-08-06] MEDS ORDERED: ZOFRAN4 M1 ORAL (12:52)
== END 2020-08-04 13:45 | disposition home or self-care (01) ==
LOC: EMR 12:06
DX: M54.5 Low back pain (principal); Z88.2 Allergy status to sulfonamides; R19.7 Diarrhea, unspecified; I10 Essential (primary) hypertension
CPT/HCPCS: 72020; Z7502; 99283

== ENCOUNTER 2020-08-14 17:48 | Emergency (ER) | payer MEDICAID ==
[~2020-08-14] VITALS: Ht 162.6 cm; Wt 81.6 kg
[~2020-08-14 17:48] MED LIST changes: +IMODIUM2 MG ORAL; +OMEPRAZOLE20 M2 ORAL; +ZOFRAN4 M1 ORAL
--- NOTE | 2020-08-14 18:40 | NUR ---
ED Nurse Note:pt. came with general pain and ETOH , pt. is ambulatory with steady gait and A/Ox4, blood was sent to labs and given IV fluids
[2020-08-14 19:01] LABS: HEMATOCRIT 48.1 % (37.0-47.0); MEAN CORPUSCULAR VOLUME 91 FL (80-99); PLATELET COUNT 252 K/UL (150-450); RED CELL DISTRIBUTION WIDTH 17.1 % (11.6-14.8); WHITE BLOOD COUNT 7.9 K/UL (4.8-10.8)
[2020-08-14 19:12] VITALS: BP 109/75
[2020-08-14 19:17] LABS: CALCIUM 8.2 MG/DL (8.5-10.1); CREATININE 1.2 MG/DL (0.55-1.30); POTASSIUM 2.8 MMOL/L (3.5-5.1)
--- NOTE | 2020-08-14 19:19 | NUR ---
ED Nurse Note: Patient expressed increased nausea, ER provider informed. Patient tolerated IV medication administration well. Patient currently resting in the left lateral position for comfort. Will continue to monitor for discharge.
[2020-08-14 19:23] LABS: ALBUMIN 4.1 G/DL (3.4-5.0); ALBUMIN/GLOBULIN RATIO 0.9 (1.0-2.7); BILIRUBIN,TOTAL 0.3 MG/DL (0.2-1.0)
[2020-08-14] MEDS ORDERED: Ketorolac 30mg Inj IV ONE (19:30)
--- NOTE | 2020-08-14 20:05 | NUR ---
ED Nurse Note: Patient is resting comfortably.
[2020-08-14 20:07] LABS: APPEARANCE,URINE SLIGHTLY CLOUDY; BILIRUBIN, URINE NEGATIVE (NEGATIVE); COLOR,URINE PALE YELLOW; GLUCOSE, URINE (UA) NEGATIVE (NEGATIVE); KETONES,URINE NEGATIVE (NEGATIVE); LEUKOCYTE ESTERASE ,URINE 2+ (NEGATIVE); NITRITE,URINE NEGATIVE (NEGATIVE); PH,URINE 7 (4.5-8.0); PROTEIN,URINE 2+ (NEGATIVE); UROBILINOGEN,URINE NORMAL MG/DL (0.0-1.0)
--- NOTE | 2020-08-14 20:48 | Emergency Room Report ---
History of Present Illness General Chief Complaint: Alcohol Intoxication Source: Patient Present Illness HPI 44-year-old female with history of alcohol abuse here complaining of alcohol intoxication after drinking half a pint of alcohol earlier today. Denies any drug use and tobacco smoke. Complains of feeling very weak and nauseated. Reports that she drinks because of her chronic low back pain in order not to feel the pain as she does not want to continue taking pain medication. Denies any chest pain, abdominal pain, headache and dizziness. Denies any cough or congestion. Complains of few bouts of nonbloody diarrhea and nonbloody vomiting. Has not taken medication for symptom relief. Denies . Allergies: Coded Allergies: SULFA (SULFONAMIDE ANTIBIOTICS) (Verified Allergy, Unknown, 02/24/19) COVID-19 Screening Contact w/high risk pt: No Recent Travel to affected area: No Experienced COVID-19 symptoms?: No COVID-19 Testing performed IT SUPPORT CONSULTANT: Yes COVID-19 Screening: Negative COVID-19 COVID-19 [place] [facility] [place] Past Medical History: see triage record Past Surgical History: none Pertinent Family History: none Social History: Reports: alcohol use Last Menstrual Period: irreg Now: No Immunizations: UTD Reviewed Nursing Documentation: PMH: Agreed; PSxH: Agreed Nursing Documentation-PMH Past Medical History: No History, Except For Hx Hypertension: Yes Hx Pacemaker: No Hx Asthma: No Hx COPD: No Hx Diabetes: No Hx Cancer: No Hx Gastrointestinal Problems: Yes - gastroenteritis Hx Dialysis: No Hx Neurological Problems: No Hx Cerebrovascular Accident: No Hx Seizures: No Review of Systems All Other Systems: negative except mentioned in HPI Physical Exam Vital Signs Date Time Temp Pulse Resp B/P (MAP) Pulse Ox O2 Delivery O2 Flow Rate FiO2 08/14/20 17:59 99.0 122 20 109/75 (86) 96 Room Air Sp02 EP Interpretation: reviewed, normal General Appearance: no apparent distress, alert, GCS 15, non-toxic Head: normocephalic, atraumatic Eyes: bilateral eye normal inspection, bilateral eye PERRL ENT: hearing grossly normal, normal pharynx, no angioedema, normal voice Neck: full range of motion, supple/symm/no masses Respiratory: chest non-tender, lungs clear, normal breath sounds, speaking full sentences Cardiovascular #1: regular rate, rhythm, no edema Cardiovascular #2: 2+ carotid (R), 2+ carotid (L), 2+ radial (R), 2+ radial (L), 2+ dorsalis pedis (R), 2+ dorsalis pedis (L) Gastrointestinal: normal bowel sounds, non tender, soft, non-distended, no guarding, no rebound Rectal: deferred Genitourinary: no CVA tenderness Musculoskeletal: back normal Neurologic: alert, motor strength/tone normal, oriented x3, sensory intact, responsive, speech normal Psychiatric: judgement/insight normal, memory normal, mood/affect normal, no suicidal/homicidal ideation Skin: no rash Lymphatic: no adenopathy Medical Decision Making PA Attestation ALL Diagnosis and treatment plan reviewed and discussed with my supervising physician Dr. Thomas Diagnostic Impression: Primary Impression: Acute alcoholic intoxication Additional Impressions: Hypokalemia UTI (urinary tract infection) ER Course 44-year-old female with history of alcohol abuse here complaining of alcohol intoxication after drinking half a pint of alcohol earlier today. Denies any drug use and tobacco smoke. Complains of feeling very weak and nauseated. Reports that she drinks because of her chronic low back pain in order not to feel the pain as she does not want to continue taking pain medication. Denies any chest pain, abdominal pain, headache and dizziness. Denies any cough or congestion. Complains of few bouts of nonbloody diarrhea and nonbloody vomiting. Has not taken medication for symptom relief. Denies . Patient recently got admitted to [facility] for was discharged on calcium was adjusted. Ddx considered but are not limited to: Alcohol intoxication with altered level of consciousness, alcohol intoxication causing pancreatitis, alcohol abuse, multi drug use and alcohol intoxication Vital signs: are WNL, pt. is afebrile H&PE are most consistent with: Alcoholic intoxication, incidental finding of UTI, hypokalemia ORDERS: CBC, CMP, lipase, UA, tox pain, EtOH level, Zofran, Keflex, potassium chloride ER intervention: NS bolus, Zofran, Pepcid, Toradol DISCHARGE: At this time pt. is stable for d/c to home. Will provide printed patient care instructions, and any necessary prescriptions. Care plan and follow up instructions have been discussed with the patient prior to discharge. Take medication as directed, follow primary care provider, increase oral hydration, with alcohol use, potassium is low secondary to vomiting secondary to alcohol in toxication which can be adjusted with p.o. potassium as no EKG changes noted. EKG Diagnostic Results Rate: normal Rhythm: NSR ST Segments: no acute changes Other Impression No acute ST changes Last Vital Signs Date Time Temp Pulse Resp B/P (MAP) Pulse Ox O2 Delivery O2 Flow Rate FiO2 08/14/20 20:03 99.0 08/14/20 19:12 111 20 Room Air 08/14/20 19:12 109/75 96 Disposition: HOME, SELF-CARE Condition: Stable Scripts Potassium Chloride (POTASSIUM CHLORIDE) 20 Meq Packet 20 MEQ ORAL DAILY, #5 PKT 0 Refills Prov: Autumn Daniel 08/14/20 Cephalexin* (KEFLEX*) 500 Mg Capsule 500 MG ORAL EVERY 12 HOURS for 7 Days, #14 CAP 0 Refills Prov: Autumn Daniel 08/14/20 Ondansetron (Zofran) 4 Mg Tablet 4 MG ORAL Q6H PRN for Nausea & Vomiting, #14 TAB Prov: Autumn Daniel 08/14/20 Patient Instructions: Alcohol Abuse and Nutrition, Hypokalemia, Urinary Tract Infection, [id number] Additional Instructions: Take medication as directed, avoid drinking alcohol, follow primary care provider, increase oral hydration, if worsening symptoms return to the emergency room Autumn Daniel Aug 14, 2020 20:48
[2020-08-14] MEDS ORDERED: POTASSIUM CHLO20 ME2 ORAL (20:53)
[2020-08-14] MEDS ORDERED: CEPHALEXIN500 MG ORAL (20:53)
[2020-08-14] MEDS ORDERED: ZOFRAN4 M1 ORAL (20:53)
--- NOTE | 2020-08-14 20:55 | NUR ---
ED Nurse Note: Patient expresses recurrent nausea, ER provider informed.
[2020-08-14 21:09] VITALS: BP 112/79
--- NOTE | 2020-08-14 21:09 | NUR ---
ER DISCHARGE NOTE: Patient is cleared to be discharged per ER provider, pt is aox4, on room air, with stable vital signs. pt was given dc and prescription instructions, pt was able to verbalize understanding, pt id band and iv site removed without complications. pt is able to ambulate with steady gait. pt took all belongings.
[2020-08-15] MEDS ORDERED: LIBRIUM25 MG ORAL (05:02)
[2020-08-15] MEDS ORDERED: DICYCLOMINE HCL10 MG ORAL (11:10)
[2020-08-15] MEDS ORDERED: OMEPRAZOLE20 M2 ORAL (11:10)
--- NOTE | 2020-08-15 17:40 | Cardiology Report ---
APPROVED REPORT EKG Measurement Heart [id number] ME [id number] <Conclusion> Normal sinus rhythm Right axis deviation Abnormal ECG
== END 2020-08-14 21:09 | disposition home or self-care (01) ==
LOC: EMR 20:58
DX: F10.129 Alcohol abuse with intoxication, unspecified (principal); E87.6 Hypokalemia; N39.0 Urinary tract infection, site not specified; G89.29 Other chronic pain; Z88.2 Allergy status to sulfonamides; I10 Essential (primary) hypertension
CPT/HCPCS: 36415; 80053; 80307; 81003; 81025; 83690; 83735; 85007; 85025; 93005; 96361; 96374; 96375; G0480; J1885; J2405; J7030; Z7502; 99284; J8499

== ENCOUNTER 2020-08-15 04:43 | Emergency (ER) | payer MEDICAID ==
[~2020-08-15] VITALS: Ht 162.6 cm; Wt 81.6 kg
[~2020-08-15 04:43] MED LIST changes: +POTASSIUM CHLO20 ME2 ORAL
[2020-08-15 04:48] VITALS: BP 141/91
--- NOTE | 2020-08-15 04:48 | NUR ---
ED Nurse Note: Patient return visit for recurrent nausea, no vomitting. patient reports not being able to sleep and prescribed nausea medication being ineffective.
[2020-08-15] MEDS ORDERED: chlordiazePOXIDE 25mg Cap ORAL ONE (05:00)
[2020-08-15] MEDS ORDERED: LIBRIUM25 MG ORAL (05:02)
--- NOTE | 2020-08-15 05:03 | Emergency Room Report ---
History of Present Illness General Chief Complaint: Nausea Source: Patient, Medical Record Present Illness HPI 44-year-old female who has a history of alcohol abuse. She presents with chief complaint of feeling nauseous. She was here less than 24 hours ago. She was very intoxicated. She received IV fluids and Zofran. She was discharged home with prescription of Zofran. She claimed it is not helping. She said that she is having nausea vomiting and diarrhea. No fever chills but no focal deficit. Said that she felt weak. She claimed that she has not been drinking. Said last drink was a week ago. Her alcohol level 12 hours ago was 350. Denies any fever chills. Denies any abdominal pain. 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: No Patient History Past Medical History: see triage record, old chart reviewed Past Surgical History: none Pertinent Family History: none Social History: Reports: alcohol use Now: No Immunizations: other Reviewed Nursing Documentation: PMH: Agreed; PSxH: Agreed Nursing Documentation-PMH Hx Hypertension: Yes Hx Pacemaker: No Hx Asthma: No Hx COPD: No Hx Diabetes: No Hx Cancer: No Hx Gastrointestinal Problems: Yes - gastroenteritis Hx Dialysis: No Hx Neurological Problems: No Hx Cerebrovascular Accident: No Hx Seizures: No Review of Systems Eye: Denies: eye pain, blurred vision ENT: Denies: ear pain, nose congestion, throat swelling Respiratory: Denies: cough, shortness of breath Cardiovascular: Denies: chest pain, palpitations Gastrointestinal: Reports: nausea, vomiting; Denies: abdominal pain, diarrhea Musculoskeletal: Denies: back pain, joint pain Skin: Denies: rash Neurological: Denies: headache, numbness Endocrine: Denies: increased thirst, increased urine Hematologic/Lymphatic: Denies: easy bruising All Other Systems: negative except mentioned in HPI Physical Exam Vital Signs Date Time Temp Pulse Resp B/P (MAP) Pulse Ox O2 Delivery O2 Flow Rate FiO2 08/15/20 04:48 98.1 97 20 141/91 (108) 99 Room Air Vitals stable. Sp02 EP Interpretation: reviewed, normal General Appearance: well appearing, no apparent distress, alert Head: normocephalic, atraumatic Eyes: bilateral eye PERRL, bilateral eye EOMI ENT: hearing grossly normal, normal pharynx Neck: full range of motion, supple, no meningismus Respiratory: chest non-tender, lungs clear, normal breath sounds Cardiovascular #1: regular rate, rhythm, no murmur Gastrointestinal: normal bowel sounds, non tender, no mass, no organomegaly, no bruit, non-distended Musculoskeletal: back normal, normal range of motion, gait/station normal Psychiatric: mood/affect normal Medical Decision Making Diagnostic Impression: Primary Impression: Alcohol abuse Additional Impression: Nausea and vomiting in adult patient ER Course Patient presents with nausea and vomiting. No vomiting here. I suspect this is probably from alcohol abuse. I gave her a dose of Phenergan here and Librium. Will discharge home. I see no need for further work-up. She already has laboratory data done. Last Vital Signs Date Time Temp Pulse Resp B/P (MAP) Pulse Ox O2 Delivery O2 Flow Rate FiO2 08/15/20 04:48 98.1 97 20 141/91 (108) 99 Room Air Status: improved Disposition: HOME, SELF-CARE Condition: Stable Scripts Chlordiazepoxide (Chlordiazepoxide HCl) 25 Mg Capsule 25 MG ORAL THREE TIMES A DAY, #15 CAP 0 Refills Prov: Jorge Avalos MD 08/15/20 Additional Instructions: Stop drinking alcohol. Go to rehab. Follow-up with your doctor in 2 to 3 days if not better. Return if worse. Jorge Avalos MD Aug 15, 2020 05:03
[2020-08-15 05:20] VITALS: BP 141/91
--- NOTE | 2020-08-15 05:21 | NUR ---
ER DISCHARGE NOTE: Patient is cleared to be discharged per ERMD. Patient tolerated medication administration well. Patient verbalized understanding of discharge instructions. ID band removed. Patient departed with all belongings.
[2020-08-15] MEDS ORDERED: DICYCLOMINE HCL10 MG ORAL (11:10)
[2020-08-15] MEDS ORDERED: OMEPRAZOLE20 M2 ORAL (11:10)
== END 2020-08-15 05:20 | disposition home or self-care (01) ==
LOC: EMR 04:59
DX: R11.2 Nausea with vomiting, unspecified (principal); F10.10 Alcohol abuse, uncomplicated; Z88.2 Allergy status to sulfonamides; I10 Essential (primary) hypertension
CPT/HCPCS: 96372; J2550; Z7502; 99283

== ENCOUNTER 2020-08-15 08:46 | Emergency (ER) | payer MEDICAID ==
[~2020-08-15] VITALS: Ht 162.6 cm; Wt 81.6 kg
[~2020-08-15 08:46] MED LIST changes: +LIBRIUM25 MG ORAL
[2020-08-15] MEDS ORDERED: Lidocaine 2% Visc 15ml soln ORAL ONE (09:00)
[2020-08-15] MEDS ORDERED: Thiamine HCl 100 MG in D5W 55 ML IVPB ONE (09:00)
[2020-08-15] MEDS ORDERED: Mylanta II UD 30ml ORAL ONE (09:00)
[2020-08-15] MEDS ORDERED: Dicyclomine HCl 10mg/5ml oral soln ORAL ONE (09:00)
[2020-08-15 09:10] VITALS: BP 128/83
--- NOTE | 2020-08-15 09:11 | Emergency Room Report ---
History of Present Illness General Chief Complaint: Nausea, Vomiting, and Diarrhea Source: Patient Present Illness HPI Patient is a 44-year-old female reports having increased vomiting and diarrhea since last night. Prior history of alcohol abuse. Had recent hospitalization due to dehydration and hypocalcemia. Reports having last alcohol use last night. Denies any hematemesis or bloody stools. Reports having multiple episodes of vomiting states she feels somewhat dehydrated. Allergies: Coded Allergies: SULFA (SULFONAMIDE ANTIBIOTICS) (Verified Allergy, Unknown, 02/24/19) COVID-19 Screening Contact w/high risk pt: No Recent Travel to affected area: No Experienced COVID-19 symptoms?: No COVID-19 Testing performed BELT PICKER: No Patient History Past Medical History: see triage record Last Menstrual Period: 08/04/2020 Reviewed Nursing Documentation: PMH: Agreed; PSxH: Agreed Nursing Documentation-PMH Past Medical History: No History, Except For Hx Hypertension: Yes - HYPOPARATHYROID Hx Pacemaker: No Hx Asthma: No Hx COPD: No Hx Diabetes: No Hx Cancer: No Hx Gastrointestinal Problems: Yes - gastroenteritis Hx Dialysis: No Hx Neurological Problems: No Hx Cerebrovascular Accident: No Hx Seizures: No Review of Systems All Other Systems: negative except mentioned in HPI Physical Exam Vital Signs Date Time Temp Pulse Resp B/P (MAP) Pulse Ox O2 Delivery O2 Flow Rate FiO2 08/15/20 08:51 98.2 110 22 128/83 (98) 99 Room Air Sp02 EP Interpretation: reviewed, normal General Appearance: normal inspection, well appearing, no apparent distress, alert, GCS 15 Head: atraumatic ENT: normal ENT inspection, hearing grossly normal, normal voice Neck: normal inspection, full range of motion, supple, no bony tend Respiratory: normal inspection, lungs clear, normal breath sounds, no respiratory distress, no retraction, no wheezing Cardiovascular #1: regular rate, rhythm, no edema Gastrointestinal: normal inspection, normal bowel sounds, non tender, soft, no guarding, no hernia Genitourinary: no CVA tenderness Musculoskeletal: normal inspection, back normal, normal range of motion Neurologic: alert, responsive, speech normal, normal inspection Psychiatric: normal inspection, judgement/insight normal, mood/affect normal Medical Decision Making Diagnostic Impression: Primary Impression: Nausea and vomiting in adult patient ER Course Presented for abdominal pain. Differential diagnosis include was not limited to alcohol gastritis, dehydration, withdrawal, hypocalcemia among others. Because of complexity of patient's case laboratory tests and imaging studies were ordered. Last Vital Signs Date Time Temp Pulse Resp B/P (MAP) Pulse Ox O2 Delivery O2 Flow Rate FiO2 08/15/20 08:51 98.2 110 22 128/83 (98) 99 Room Air Referrals: [facility],REFERRING (PCP) Trever Thomason MD Aug 15, 2020 09:11
[2020-08-15] MEDS ORDERED: LORazepam Inj 2mg/ml 1ml IV ONE (09:15)
[2020-08-15 09:39] LABS: BASOPHILS % (AUTO) 2.3 % (0.0-2.0); EOSINOPHILS % (AUTO) 0.4 % (0.0-3.0); HEMATOCRIT 42.4 % (37.0-47.0); HEMOGLOBIN 14.3 G/DL (12.0-16.0); LYMPHOCYTES % (AUTO) 45.2 % (20.0-45.0); MEAN CORPUSCULAR VOLUME 89 FL (80-99); NEUTROPHILS % (AUTO) 42.2 % (45.0-75.0); PLATELET COUNT 201 K/UL (150-450); RED BLOOD COUNT 4.74 M/UL (4.20-5.40); WHITE BLOOD COUNT 6.6 K/UL (4.8-10.8)
[2020-08-15 09:43] LABS: APPEARANCE,URINE CLEAR; BILIRUBIN, URINE NEGATIVE (NEGATIVE); COLOR,URINE PALE YELLOW; GLUCOSE, URINE (UA) NEGATIVE (NEGATIVE); KETONES,URINE NEGATIVE (NEGATIVE); LEUKOCYTE ESTERASE ,URINE 1+ (NEGATIVE); NITRITE,URINE NEGATIVE (NEGATIVE); PH,URINE 6 (4.5-8.0); PROTEIN,URINE 2+ (NEGATIVE); UROBILINOGEN,URINE NORMAL MG/DL (0.0-1.0)
[2020-08-15 09:50] LABS: CALCIUM 7.6 MG/DL (8.5-10.1); CREATININE 1.1 MG/DL (0.55-1.30); POTASSIUM 3.1 MMOL/L (3.5-5.1)
[2020-08-15 09:55] LABS: ALBUMIN 4.1 G/DL (3.4-5.0); BILIRUBIN,TOTAL 0.7 MG/DL (0.2-1.0)
[2020-08-15] MEDS ORDERED: OMEPRAZOLE20 M2 ORAL (11:10)
[2020-08-15] MEDS ORDERED: DICYCLOMINE HCL10 MG ORAL (11:10)
[2020-08-15 11:19] VITALS: BP 126/84
== END 2020-08-15 11:19 | disposition home or self-care (01) ==
LOC: EMR 09:08
DX: R11.2 Nausea with vomiting, unspecified (principal); R19.7 Diarrhea, unspecified; Z88.2 Allergy status to sulfonamides
CPT/HCPCS: 36415; 80053; 81003; 81025; 83690; 84550; 85025; 96361; 96365; 96372; 96375; G0480; J2405; J2550; J7030; Z7502; 99283; 99284; J8499